=== PATIENT | female | born 1945 | race Caucasian/White ===

== ENCOUNTER 2017-06-04 06:39 | Emergency (ER) | payer OTHER ==
[~2017-06-04] VITALS: Ht 157.5 cm; Wt 94.9 kg
[~2017-06-04 06:39] MED LIST: ACET-1138 PO; ADVIN25050 INH; ALBUAER2 INH; AMLO2.5T PO; ASPI81TA28 PO; CETI10TA84 PO; FRS/40 PO; LEVO75TA5 PO; LOSA1TAB38 PO; NTRGSL/4 UT; OMEP20CA59 PO; POTA20TA16 PO; RXC5 PO; SENNTAB23 PO; SIMV40TA2 PO; TNR50 PO
[2017-06-04 06:43] VITALS: Ht 157.5 cm; Wt 94.9 kg
[2017-06-04] MEDS ORDERED: ALBUTEROL 0.5% NEB SOLN 2.5 MG/0.5 ML VIAL INH ONE (06:58)
[2017-06-04] MEDS ORDERED: ALBUT/IPRATROP 3MG/0.5MG NEB 3 ML VIAL INH STA (07:10)
[2017-06-04] MEDS ORDERED: FUROSEMIDE 40 MG/4 ML VIAL IV STA (07:13)
[2017-06-04] MEDS ORDERED: AMLODIPINE BESYLATE 5 MG TAB PO ONE (07:15)
[2017-06-04] MEDS ORDERED: LOSARTAN POTASSIUM 50 MG TAB PO ONE (07:15)
[2017-06-04 07:23] LABS: BASO % 0.1 %; BASO ABS # 0.01 K/uL (0-0.2); HEMATOCRIT 46.3 % (37-47); HEMOGLOBIN 15.5 g/dL (12.0-16.0); IG# 0.02 K/uL (0.00-0.02); LYMPH % 6.2 %; LYMPH ABS # 0.52 K/uL (1.2-3.4); MEAN CELL VOLUME 94.1 fL (80-100); MEAN CORPUSCULAR HEMOGLOBIN 31.5 pg (25-34); MEAN CORPUSCULAR HGB CONC 33.5 g/dl (32-36); MEAN PLATELET VOLUME 10.5 fL (7.4-10.4); MONO ABS # 0.92 K/uL (0.11-0.59); NEUT % 82.5 %; NEUT ABS # 6.93 K/uL (1.4-6.5); PLATELET COUNT 235 K/uL (130-400); RED CELL DISTRIBUTION WIDTH CV 13.2 % (11.5-14.5); RED CELL DISTRIBUTION WIDTH SD 45.5 fL (36.4-46.3)
[2017-06-04 07:25] VITALS: O2SAT 93
--- NOTE | 2017-06-04 07:32 | DIAGNOSTIC IMAGING REPORT ---
SINGLE VIEW CHEST CLINICAL HISTORY: Cough and dyspnea. FINDINGS: An AP, portable, upright chest radiograph is obtained. No prior studies are available for comparison at the time of dictation. The examination is degraded by portable technique and patient rotation. The patient is status post midline sternotomy. The heart is enlarged and there is atherosclerotic calcification of the thoracic aorta. The pulmonary vasculature is noncongested. There is nonspecific interstitial thickening. No airspace consolidation, large pleural effusion, or pneumothorax is seen. The skeletal structures are osteopenic. The bony thorax is grossly intact. Arthritic change is noted in the shoulders. IMPRESSION: Cardiomegaly with no acute cardiopulmonary abnormality. Electronically signed by: Harshad Hansen M.D. 06/04/2017 7:31 AM Dictated Date/Time: 06/04/2017 7:28 AM
[2017-06-04 07:39] LABS: ALBUMIN 3.6 gm/dl (3.4-5.0); ALT/SGPT 33 U/L (12-78); AST/SGOT 24 U/L (15-37); BLOOD UREA NITROGEN 22 mg/dl (7-18); CALCIUM 9.2 mg/dl (8.5-10.1); CARBON DIOXIDE 29 mmol/L (21-32); CREATININE 0.97 mg/dl (0.60-1.20); GLUCOSE 98 mg/dl (70-99); INR 0.9 (0.9-1.1); POTASSIUM 3.9 mmol/L (3.5-5.1); SODIUM 142 mmol/L (136-145)
[2017-06-04 07:44] LABS: ALKALINE PHOSPHATASE 119 U/L (45-117); CKMB 3.6 ng/ml (0.5-3.6); TOTAL PROTEIN 7.2 gm/dl (6.4-8.2)
[2017-06-04] MEDS ORDERED: POTA10CA28 PO (08:04)
[2017-06-04] MEDS ORDERED: PRED20TA PO (08:04)
[2017-06-04] MEDS ORDERED: METO50TA16 PO (08:04)
[2017-06-04] MEDS ORDERED: MULT-1092 PO (08:04)
[2017-06-04] MEDS ORDERED: FERR1TAB13 PO (08:08)
[2017-06-04 08:15] LABS: INFLUENZA B ANTIGEN Neg for Influ B (NEG)
[2017-06-04] MEDS ORDERED: [UNRECOGNIZED DRUG - CODE] PO (08:15)
[2017-06-04] MEDS ORDERED: MAGN400T6 PO (08:15)
[2017-06-04] MEDS ORDERED: ASPI81TA28 PO (08:15)
[2017-06-04] MEDS ORDERED: CLC100X PO (08:15)
[2017-06-04] MEDS ORDERED: CYAN10005 PO (08:15)
[2017-06-04] MEDS ORDERED: ASCO500T16 PO (08:15)
[2017-06-04] MEDS ORDERED: VNTHFA/IN INH (08:15)
[2017-06-04] MEDS ORDERED: MULT1CAP14 PO (08:15)
[2017-06-04 08:41] LABS: INFLUENZA A PCR Neg for Influ A (NEG); INFLUENZA B PCR Neg for Influ B (NEG)
[2017-06-04] MEDS ORDERED: AMOX500C3 PO (10:06)
[2017-06-04 10:27] VITALS: BP 153/81; PULSE 62; TEMP 36.9; O2SAT 92
--- NOTE | 2017-06-04 14:46 | EMERGENCY ROOM VISIT NOTE ---
History First contact with patient: 06:55 Chief Complaint: SHORTNESS OF BREATH Stated Complaint: SHORTNESS OF BREATH,COUGH Nursing Triage Summary: triage note SOB with cough since Sunday, seen PCP sunday got script for prednisone and cough syrup. states not working. aleyda has been having harder time catchin breath. pt is audiably wheezing and has labored breathing History of Present Illness The patient is a 72 year old female who presents to the Emergency Room with complaints of cough, shortness of breath, nasal congestion, body aches. The patient states that her symptoms started on , 4 days ago. She saw her doctor on Sunday and was prescribed prednisone. The patient does have a history of asthma. Her initial blood pressure was elevated at 199/104. She did not take her morning medications which include several antihypertensives. Review of Systems As above otherwise negative for 10 systems Past Medical/Surgical History Medical Problems: (1) Arthritis of right hip (2) Asthma (3) CAD (coronary artery disease) (4) GERD (gastroesophageal reflux disease) (5) History of left heart catheterization (LHC) (6) HLD (hyperlipidemia) (7) HTN (hypertension) (8) Hypothyroidism Surgical Problems: (1) H/O: hysterectomy (2) S/P AVR Family History Diabetes mellitus FH: cancer FH: heart disease Hypertension Social History Smoking Status: Never Smoker Current/Historical Medications Scheduled Amoxicillin (Amoxil), 500 MG PO TID Ascorbic Acid (Ascorbic Acid), 500 MG PO DAILY Aspirin (Aspirin Ec), 81 MG PO DAILY Cetirizine (Zyrtec), 10 MG PO QAM Cyanocobalamin (Vitamin B-12), 1,000 MCG PO DAILY Docusate Sodium (Docusate Sodium), 100 MG PO UD Ferrous Sulfate (Kp Ferrous Sulfate), 325 MG PO DAILY Fluticasone Prop/Salmeterol (Advair Diskus 250-50 Mcg/Dose), 1 PUFF INH BID Levothyroxine Sodium (Levothyroxine Sodium), 1 TAB PO QAM Losartan Potassium (Cozaar), 100 MG PO QAM Magnesium Oxide (Mag-Ox), 800 MG PO AMPM Metoprolol Tartrate (Lopressor) (Lopressor), 50 MG PO BID Multiple Vitamins W/ Minerals (Centrum Silver 50+Women), 1 TAB PO DAILY Multiple Vitamins W/ Minerals ([employer] Eye Health Formul), 1 CAP PO DAILY Nitroglycerin (Nitrostat), 0.4 MG UT PRN Omeprazole (Prilosec), 20 MG PO QAM Potassium Chloride (Micro-K Ext Rel), 10 MEQ PO BID Prednisone (Prednisone), 2 TAB PO DAILY Simvastatin (Zocor), 40 MG PO QPM Scheduled PRN Albuterol Hfa (Ventolin Hfa), 2 PUFFS INH Q4 PRN for Wheezing Furosemide (Lasix), 20-40 MG PO DAILY PRN for FLUID RETENTION Homeopathic Products ([employer] Leg Cramps Pain Relie), 1 TAB PO UD PRN for Pain Physical Exam Vital Signs Date Time Temp Pulse Resp B/P (MAP) Pulse Ox O2 Delivery O2 Flow Rate FiO2 06/04/17 10:27 36.9 62 20 153/81 92 06/04/17 10:01 153/81 06/04/17 09:52 168/97 06/04/17 09:44 62 20 92 06/04/17 08:14 74 17 97 06/04/17 08:12 189/96 06/04/17 07:54 93 Nasal Cannula 2.0 06/04/17 07:44 73 20 97 06/04/17 07:39 83 19 189/96 97 06/04/17 07:25 93 Nasal Cannula 2.0 06/04/17 07:09 83 25 100 06/04/17 06:57 80 06/04/17 06:56 205/111 06/04/17 06:43 36.9 79 18 199/104 90 Room Air Physical Exam CONSTITUTIONAL/VITAL SIGNS: Reviewed / noted above. GENERAL: Non-toxic in appearance. INTEGUMENTARY: Warm, dry, and [place]. HEAD: Normocephalic. EYES: without scleral icterus or trauma. ENT/OROPHARYNX: clear and moist. LYMPHADENOPATHY/NECK: Is supple without lymphadenopathy or meningismus. RESPIRATORY: Lungs reveal scattered expiratory wheezes CARDIOVASCULAR: Regular rate and rhythm. GI/ABDOMEN: Soft and nontender. No organomegaly or pulsatile mass. No rebound or guarding. Normal bowel sounds. EXTREMITIES: Warm and well perfused. BACK: No CVA tenderness. NEUROLOGICAL: Intact without focal deficits. PSYCHIATRIC: normal affect. MUSCULOSKELETAL: Normally developed with good muscle tone. TRIAGE NURSING DOCUMENTATION REVIEWED. Medical Decision & Procedures ER Provider Diagnostic Interpretation: SINGLE VIEW CHEST CLINICAL HISTORY: Cough and dyspnea. FINDINGS: An AP, portable, upright chest radiograph is obtained. No prior studies are available for comparison at the time of dictation. The examination is degraded by portable technique and patient rotation. The patient is status post midline sternotomy. The heart is enlarged and there is atherosclerotic calcification of the thoracic aorta. The pulmonary vasculature is noncongested. There is nonspecific interstitial thickening. No airspace consolidation, large pleural effusion, or pneumothorax is seen. The skeletal structures are osteopenic. The bony thorax is grossly intact. Arthritic change is noted in the shoulders. IMPRESSION: Cardiomegaly with no acute cardiopulmonary abnormality. Laboratory Results 06/04/17 07:05 Red Blood Count 4.92, Mean Corpuscular Volume 94.1, Mean Corpuscular Hemoglobin 31.5, Mean Corpuscular Hemoglobin Concent 33.5, Mean Platelet Volume 10.5, Neutrophils (%) (Auto) 82.5, Lymphocytes (%) (Auto) 6.2, Monocytes (%) (Auto) 11.0, Eosinophils (%) (Auto) 0.0, Basophils (%) (Auto) 0.1, Neutrophils # (Auto ) 6.93, Lymphocytes # (Auto) 0.52, Monocytes # (Auto) 0.92, Eosinophils # (Auto ) 0.00, Basophils # (Auto) 0.01 06/04/17 07:05 Test 06/04/17 07:00 06/04/17 07:05 Influenza Type A (RT-PCR) Neg for Influ A (NEG) Influenza Type A Antigen Neg for Influ A (NEG) Influenza Type B Antigen Neg for Influ B (NEG) Influenza Type B (RT-PCR) Neg for Influ B (NEG) White Blood Count 8.40 K/uL (4.8-10.8) Red Blood Count 4.92 M/uL (4.2-5.4) Hemoglobin 15.5 g/dL (12.0-16.0) Hematocrit 46.3 % (37-47) Mean Corpuscular Volume 94.1 fL (80-100) Mean Corpuscular Hemoglobin 31.5 pg (25-34) Mean Corpuscular Hemoglobin Concent 33.5 g/dl (32-36) Platelet Count 235 K/uL (130-400) Mean Platelet Volume 10.5 fL (7.4-10.4) Neutrophils (%) (Auto) 82.5 % Lymphocytes (%) (Auto) 6.2 % Monocytes (%) (Auto) 11.0 % Eosinophils (%) (Auto) 0.0 % Basophils (%) (Auto) 0.1 % Neutrophils # (Auto) 6.93 K/uL (1.4-6.5) Lymphocytes # (Auto) 0.52 K/uL (1.2-3.4) Monocytes # (Auto) 0.92 K/uL (0.11-0.59) Eosinophils # (Auto) 0.00 K/uL (0-0.5) Basophils # (Auto) 0.01 K/uL (0-0.2) RDW Standard Deviation 45.5 fL (36.4-46.3) RDW Coefficient of Variation 13.2 % (11.5-14.5) Immature Granulocyte % (Auto) 0.2 % Immature Granulocyte # (Auto) 0.02 K/uL (0.00-0.02) Prothrombin Time 9.5 SECONDS (9.0-12.0) Prothromb Time International Ratio 0.9 (0.9-1.1) Activated Partial Thromboplast Time 25.0 SECONDS (21.0-31.0) Partial Thromboplastin Ratio 1.0 Anion Gap 9.0 mmol/L (3-11) Est Creatinine Clear Calc Drug Dose 54.6 ml/min Estimated GFR () 66.7 Estimated GFR (Non- 57.5 BUN/Creatinine Ratio 22.2 (10-20) Calcium Level 9.2 mg/dl (8.5-10.1) Total Bilirubin 0.3 mg/dl (0.2-1) Aspartate Amino Transf (AST/SGOT) 24 U/L (15-37) Alanine Aminotransferase (ALT/SGPT) 33 U/L (12-78) Alkaline Phosphatase 119 U/L (45-117) Total Creatine Kinase 256 U/L (26-192) Creatine Kinase MB 3.6 ng/ml (0.5-3.6) Creatine Kinase MB Ratio 1.4 (0-3.0) Troponin I < 0.015 ng/ml (0-0.045) Pro-B-Type Natriuretic Peptide 951 pg/ml (0-900) Total Protein 7.2 gm/dl (6.4-8.2) Albumin 3.6 gm/dl (3.4-5.0) Globulin 3.6 gm/dl (2.5-4.0) Albumin/Globulin Ratio 1.0 (0.9-2) Medications Administered Medications (Trade) Dose Ordered Sig/Judith Route Start Time Stop Time Status Last Admin Dose Admin Albuterol Sulfate (Ventolin 0.5% 2.5MG/0.5ML Neb) 2.5 mg STK-MED ONCE INH 06/04/17 06:58 06/04/17 06:59 DC 06/04/17 06:58 2.5 MG Albuterol/ Ipratropium (Duoneb) 3 ml NOW STAT INH 06/04/17 07:10 06/04/17 07:13 DC 06/04/17 07:10 3 ML Amlodipine Besylate (Norvasc Tab) 2.5 mg NOW ONCE PO 06/04/17 07:15 06/04/17 07:16 DC 06/04/17 07:35 2.5 MG Atenolol (Tenormin Tab) 50 mg NOW ONCE PO 06/04/17 07:15 06/04/17 07:16 DC 06/04/17 07:34 50 MG Furosemide (Lasix Inj) 40 mg NOW STAT IV 06/04/17 07:13 06/04/17 07:16 DC 06/04/17 07:35 40 MG Losartan Potassium (coZAAR TAB) 100 mg ONE ONCE PO 06/04/17 07:15 06/04/17 07:16 DC 06/04/17 07:42 100 MG ED Course The patient was treated with her prescribed oral antihypertensives. She was also given IV Lasix and a DuoNeb treatment. Medical Decision the differential was considered includes acute myocardial infarction, acute coronary syndrome, myocarditis, pericarditis, pericardial effusions /tamponade, esophageal perforation, pulmonary embolism, pneumonia, pneumothorax, cardiomyopathy, congestive heart, anemia , COPD/asthma exacerbation. The patient is a 72 year old female who presents to the Emergency Room with complaints of cough, shortness of breath, nasal congestion, body aches. The patient states that her symptoms started on , 4 days ago. She saw her doctor on Sunday and was prescribed prednisone. The patient does have a history of asthma. Her initial blood pressure was elevated at 199/104. She did not take her morning medications which include several antihypertensives. 90% saturation on room air. The patient's physical exam revealed respiratory wheezing. She is otherwise in no distress. Chest x-ray did not show acute process. CBC and complete metabolic panel were unremarkable. The patient was given a DuoNeb treatment. She was treated with IV Lasix, by mouth Norvasc, atenolol by mouth and Cozaar by mouth. Her blood pressure improved. She appeared more calm. Her oxygen saturations remained above 90%. She felt comfortable going home. She was given a prescription for amoxicillin. She will continue her prednisone and she does have inhalers at home. Blood Pressure Screening Patient's blood pressure: Elevated blood pressure Blood pressure disposition: Referred to PCP Impression Primary Impression: Acute bronchitis Departure Information Dispostion Home / Self-Care Prescriptions Amoxicillin (AMOXIL) 500 Mg Cap 500 MG PO TID, #21 CAP Prov: Ronal Fan D.O. 06/04/17 Referrals Peggy Reyes M.D. (PCP) Patient Instructions Bronchitis Acute, [facility] Additional Instructions Amoxicillin as prescribed. Continue prednisone. Continue your inhalers at home every 4 hours as needed for shortness of breath or wheezing. Follow-up with your doctor for further care and evaluation in 1-2 days. Return to the emergency department for worsening or new symptoms or any concerns. You have been examined and treated today on an emergency basis only. This is not a substitute for, or an effort to provide, complete comprehensive medical care. It is impossible to recognize and treat all injuries or illnesses in a single emergency department visit. It is therefore important that you follow up closely with your doctor. Call as soon as possible for an appointment.
[2017-06-05] MEDS ORDERED: SYN75 PO (16:10)
[2017-06-05] MEDS ORDERED: POTA-74 PO (16:10)
[2017-06-05] MEDS ORDERED: MGNO400 PO (16:10)
== END 2017-06-04 10:28 | disposition home or self-care (01) ==
LOC: C.EDB 06:41
DX: J20.9 Acute bronchitis, unspecified (principal); J45.909 Unspecified asthma, uncomplicated; M16.11 Unilateral primary osteoarthritis, right hip; I25.10 Atherosclerotic heart disease of native coronary artery without angina pectoris; K21.9 Gastro-esophageal reflux disease without esophagitis; I10 Essential (primary) hypertension; E78.5 Hyperlipidemia, unspecified; E03.9 Hypothyroidism, unspecified; Z90.710 Acquired absence of both cervix and uterus; Z79.82 Long term (current) use of aspirin; Z83.3 Family history of diabetes mellitus; Z82.49 Family history of ischemic heart disease and other diseases of the circulatory system

== ENCOUNTER 2017-06-05 12:11 | Inpatient (IN) | payer OTHER ==
[2017-06-05] VITALS (8 sets, daily range): BP systolic 102–143; BP diastolic 63–87; PULSE 59–104; TEMP 36.5–36.9; O2SAT 92–94; Ht 154.9 cm; Wt 83.1 kg
[~2017-06-05] VITALS: Ht 154.9 cm; Wt 83.1 kg
[~2017-06-05 12:11] MED LIST changes: -ACET-1138 PO; -ALBUAER2 INH; -AMLO2.5T PO; +AMOX500C3 PO; +ASCO500T16 PO; +CLC100X PO; +CYAN10005 PO; +FERR1TAB13 PO; +MAGN400T6 PO; +METO50TA16 PO; +MULT-1092 PO; +MULT1CAP14 PO; +POTA10CA28 PO; -POTA20TA16 PO; +PRED20TA PO; -RXC5 PO; -SENNTAB23 PO; -TNR50 PO; +VNTHFA/IN INH; +[UNRECOGNIZED DRUG - CODE] PO
[2017-06-05] MEDS ORDERED: METHYLPREDNISOLONE 125 MG VIAL IV STA (12:45)
[2017-06-05] MEDS ORDERED: MAGNESIUM SULFATE 1GM / D5W 1 GM BAG IV STA (12:45)
[2017-06-05] MEDS ORDERED: ALBUT/IPRATROP 3MG/0.5MG NEB 3 ML VIAL INH ONE (12:45)
--- NOTE | 2017-06-05 13:04 | EMERGENCY ROOM VISIT NOTE ---
History Report prepared by Marcela: Irene Kee Under the Supervision of: Dr. Jon Pena M.D. First contact with patient: 12:41 Chief Complaint: SHORTNESS OF BREATH Stated Complaint: SOB, COUGHING Nursing Triage Summary: pt to the ED with c/o SOB and coughing since was here yesterday and sent home called PMD today and they told her to come to the ED no pain History of Present Illness The patient is a 72 year old female who presents to the Emergency Room with complaints of constant shortness of breath since May 31, 2017. The patient was recently seen in the ED yesterday for similar symptoms. She feels that she is worse than yesterday. Per , the patient cannot walk 20 feet without becoming short of breath. She denies any chest pain. Per , the patient notes loss of sleep for four days. She notes that she is expected to have a cardiac valve replacement, though she has a history of cardiac valve replacement nine years ago. She was seen by her PCP on June 01, 2017 and was prescribed Prednisone and Amoxicillin for bronchitis. She finished the prednisone today and is still taking the Amoxicillin. She denies any history of smoking. She has a history of asthma. She does not normally wear oxygen at home. She was tested for the flu, though was negative. She has recently gained water weight. She notes bilateral leg swelling. She regularly sees her calculation reviewer, Dr. Oconnor. Per , the patient's blood pressure has been higher than normal. Source of History: patient, spouse/significant other Onset: May 31, 2017 Position: other (global ) Quality: other (shortness of breath) Timing: constant Modifying Factors (Worsening): other (walking) Associated Symptoms: No chest pain Note: She notes bilateral leg swelling and weight gain. Review of Systems See HPI for pertinent positives and negatives. A total of ten systems were reviewed and were otherwise negative. Past Medical & Surgical Medical Problems: (1) Arthritis of right hip (2) Asthma (3) CAD (coronary artery disease) (4) GERD (gastroesophageal reflux disease) (5) HLD (hyperlipidemia) (6) HTN (hypertension) (7) Hypothyroidism (8) Respiratory failure Surgical Problems: (1) H/O: hysterectomy (2) History of left heart catheterization (LHC) (3) History of right hip replacement (4) History of tonsillectomy and adenoidectomy (5) S/P AVR Family History Diabetes mellitus FH: cancer FH: heart disease Hypertension Social History Smoking Status: Never Smoker Smokeless Tobacco Use: No Alcohol Use: none Marital Status: Housing Status: lives with significant other Occupation Status: unemployed Current/Historical Medications Scheduled Amoxicillin (Amoxil), 500 MG PO TID Ascorbic Acid (Ascorbic Acid), 500 MG PO DAILY Aspirin (Aspirin Ec), 81 MG PO DAILY Cetirizine (Zyrtec), 10 MG PO QAM Cyanocobalamin (Vitamin B-12), 1,000 MCG PO DAILY Ferrous Sulfate (Kp Ferrous Sulfate), 325 MG PO DAILY Fluticasone Prop/Salmeterol (Advair Diskus 250-50 Mcg/Dose), 1 PUFF INH BID Levothyroxine Sodium (Synthroid), 1 TAB PO DAILY Losartan Potassium (Cozaar), 100 MG PO QAM Magnesium Oxide (Mag-Ox), 800 MG PO DAILY Magnesium Oxide (Magnesium-Oxide), 1 TAB PO PM Metoprolol Tartrate (Lopressor) (Lopressor), 50 MG PO BID Multiple Vitamins W/ Minerals (Centrum Silver 50+Women), 1 TAB PO DAILY Multiple Vitamins W/ Minerals ([employer] Eye Health Formul), 1 CAP PO DAILY Nitroglycerin (Nitrostat), 0.4 MG UT PRN Omeprazole (Prilosec), 20 MG PO QAM Potassium Chloride (Micro-K Ext Rel), 10 MEQ PO PM Potassium Chloride (Potassium Chloride Er), 2 TAB PO DAILY Prednisone (Prednisone), 2 TAB PO DAILY Simvastatin (Zocor), 40 MG PO QPM Scheduled PRN Albuterol Hfa (Ventolin Hfa), 2 PUFFS INH Q4 PRN for Wheezing Furosemide (Lasix), 20-40 MG PO DAILY PRN for FLUID RETENTION Allergies Coded Allergies: Erythromycin (Verified Adverse Reaction, Unknown, GI UPSET AND CRAMPING, ) Tetracycline (Verified Adverse Reaction, Unknown, GI UPSET, 06/05/17) Physical Exam Vital Signs Date Time Temp Pulse Resp B/P (MAP) Pulse Ox O2 Delivery O2 Flow Rate FiO2 06/05/17 15:20 99 24 132/69 95 BiPAP 06/05/17 14:45 104 94 40 06/05/17 13:54 80 06/05/17 13:52 80 24 171/105 93 Nebulizer 06/05/17 13:39 76 20 93 Nasal Cannula 5.0 06/05/17 13:34 157 26 06/05/17 13:20 93 Nasal Cannula 06/05/17 13:20 Nasal Cannula 06/05/17 12:32 37.4 83 22 167/79 79 Room Air Physical Exam GENERAL: Awake, alert, in mild respiratory distress HENT: Normocephalic, atraumatic. Oropharynx has dry mucus membranes. EYES: Normal conjunctiva. Sclera non-icteric. NECK: Supple. No nuchal rigidity. FROM. No JVD. RESPIRATORY: Scattered wheezes and rhonchi throughout. CARDIAC: RRR. Extremities warm and well perfused. Pulses equal. ABDOMEN: Soft, non-distended. No tenderness to palpation. No rebound or guarding. No masses. RECTAL: Deferred. MUSCULOSKELETAL: Chest examination reveals no tenderness. The back is symmetrical on inspection without obvious abnormality. There is no CVA tenderness to palpation. No joint edema. LOWER EXTREMITIES: Calves are equal size bilaterally and non-tender. 3+ bilateral pitting edema. No discoloration. NEURO: Normal sensorium. No sensory or motor deficits noted. SKIN: No rash or jaundice noted. Medical Decision & Procedures ER Provider Diagnostic Interpretation: Radiology results as stated below per my review and radiologist interpretation: CHEST ONE VIEW PORTABLE CLINICAL HISTORY: Atypical chest pain. Cough. COMPARISON STUDY: 06/04/2017 FINDINGS: There are postsurgical changes of a midline sternotomy. The heart is at the upper limits of normal in size. There is nonspecific mild interstitial thickening. There is no lobar consolidation. There are no significant pleural effusions.[ IMPRESSION: Mild nonspecific interstitial thickening. No evidence of focal pulmonary consolidation Electronically signed by: Josiah Lema M.D. 06/05/2017 1:27 PM Dictated Date/Time: 06/05/2017 1:20 PM Laboratory Results Test 06/05/17 13:20 06/05/17 13:23 Prothrombin Time 10.1 SECONDS (9.0-12.0) Prothromb Time International Ratio 1.0 (0.9-1.1) Total Bilirubin 0.4 mg/dl (0.2-1) Direct Bilirubin 0.1 mg/dl (0-0.2) Aspartate Amino Transf (AST/SGOT) 32 U/L (15-37) Alanine Aminotransferase (ALT/SGPT) 37 U/L (12-78) Alkaline Phosphatase 113 U/L (45-117) Troponin I < 0.015 ng/ml (0-0.045) Pro-B-Type Natriuretic Peptide 1837 pg/ml (0-900) Total Protein 7.4 gm/dl (6.4-8.2) Albumin 3.6 gm/dl (3.4-5.0) Lipase 89 U/L (73-393) Thyroid Stimulating Hormone (TSH) 1.580 uIu/ml (0.300-4.500) Venous Blood pH 7.35 (7.36-7.41) Venous Blood Partial Pressure CO2 62 mmHg (38.0-50.0) Venous Blood Partial Pressure O2 42 mmHg Venous Blood HCO3 33 mmol/L Venous Blood Oxygen Saturation 71.7 % Venous Blood Base Excess 5.0 mEq/L Laboratory results reviewed by me Medications Administered Medications (Trade) Dose Ordered Sig/Judith Route Start Time Stop Time Status Last Admin Dose Admin Methylprednisolone Sodium Succinate (Solu-Medrol IV) 125 mg NOW STAT IV 06/05/17 12:45 06/05/17 12:51 DC 06/05/17 13:36 125 MG Albuterol/ Ipratropium (Duoneb) 12 ml ONE ONCE INH 06/05/17 12:45 06/05/17 12:51 DC 06/05/17 13:39 12 ML Magnesium Sulfate (Magnesium Sulfate) 2 gm NOW STAT IV 06/05/17 12:45 06/05/17 12:51 DC 06/05/17 13:36 2 GM Furosemide (Lasix Inj) 20 mg NOW STAT IV 06/05/17 14:25 06/05/17 14:27 DC 06/05/17 15:07 20 MG Levofloxacin (Levaquin / D5W) 750 mg NOW STAT IV 06/05/17 14:25 06/05/17 14:27 DC 06/05/17 16:00 750 MG ECG Indication: SOB/dyspnea Rate (beats per minute): 74 Rhythm: normal sinus Findings: no acute ischemic change, other (Non-specific intraventricular block. Normal axis.) Change: no significant change (Repeat ECG (06/05/2017) is unchaged) Change: Patient's electrocardiogram interpreted by me. ED Course 1242: The patient was evaluated in room B10. A complete history and physical exam was performed. 1348: I reassessed the patient at this time. She is resting comfortably. 1425: I reassessed the patient at this time. She is resting comfortably. I discussed the results and treatment plan with the patient. I answered all pertaining questions that she had. She expressed understanding and verbalized agreement. The patient will be further evaluated. 1438: I spoke with Bhavya Paulson PA-C. We discussed the patient 's case. The patient will be evaluated by the [facility] for further management. Medical Decision I reviewed the patient's past medical history, medications, and the nursing notes as described above. Differential diagnosis: Etiologies such as infections, reactive airway disease, pneumonia, pneumothorax , COPD, CHF, cardiac ischemia, pulmonary embolism, musculoskeletal, gastrointestinal, as well as others were entertained. The patient is a 72-year-old woman with a past medical history of asthma and CHF on Lasix presents to emergency department with worsening cough congestion shortness of breath after being seen in the emergency Department for the same yesterday and started on amoxicillin in the setting of being seen by her PCP for the same last Sunday started on prednisone. Arrival the patient is in mild respiratory distress, with hypoxia to the 80s on room air, with accessory muscle use. Vital Signs otherwise stable. Labs demonstrate hypercapnia in the 60s with pH of 7.35. WBC 10. BNP 1800s slightly increased from yesterday. Chest x-ray negative for pneumonia or significant volume overload. She given continuous nebs and steroids with improvement in her air movement however still significantly dyspneic with workup breathing. Patient was placed on BiPAP for her acute on chronic hypoxic and hypercapnic respiratory failure. Additionally treated with Levaquin given the patient's respiratory distress in the setting of her COPD. This was discussed with Bhavya Torres, who will admit the patient for further management. Medication Reconcilliation Current Medication List: was personally reviewed by me Blood Pressure Screening Patient's blood pressure: Elevated blood pressure Blood pressure disposition: Elevated BP felt to be situational Consults Time Called: 1430 Consulting Physician: Bhavya Paulson PA-C Returned Call: 1438 I spoke with Bhavya PaulsonC. We discussed the patient's case. [facility] Impression Primary Impression: Acute on chronic respiratory failure with hypoxia and hypercapnia Additional Impression: COPD with exacerbation Critical Care I have personally spent greater than 90 minutes of critical care time in the direct management of this patient. This includes bedside care, interpretation of diagnostic studies, and testing, discussion with consultants, patient, and family members, and other required patient management activities. This 90 minutes is in excess of all separately billable procedures. Scribe Attestation The scribe's documentation has been prepared under my direction and personally reviewed by me in its entirety. I confirm that the note above accurately reflects all work, treatment, procedures, and medical decision making performed by me. Departure Information Dispostion Being Evaluated By Hospitalist Referrals Peggy Reyes M.D. (PCP) Patient Instructions [facility] Problem Qualifiers
--- NOTE | 2017-06-05 13:28 | DIAGNOSTIC IMAGING REPORT ---
CHEST ONE VIEW PORTABLE CLINICAL HISTORY: Atypical chest pain. Cough. COMPARISON STUDY: 06/04/2017 FINDINGS: There are postsurgical changes of a midline sternotomy. The heart is at the upper limits of normal in size. There is nonspecific mild interstitial thickening. There is no lobar consolidation. There are no significant pleural effusions.[ IMPRESSION: Mild nonspecific interstitial thickening. No evidence of focal pulmonary consolidation Electronically signed by: Josiah Lema M.D. 06/05/2017 1:27 PM Dictated Date/Time: 06/05/2017 1:20 PM
[2017-06-05 13:36] LABS: BASO % 0.2 %; BASO ABS # 0.02 K/uL (0-0.2); HEMATOCRIT 47.2 % (37-47); HEMOGLOBIN 15.4 g/dL (12.0-16.0); IG# 0.02 K/uL (0.00-0.02); LYMPH % 4.4 %; LYMPH ABS # 0.48 K/uL (1.2-3.4); MEAN CELL VOLUME 95.9 fL (80-100); MEAN CORPUSCULAR HEMOGLOBIN 31.3 pg (25-34); MEAN CORPUSCULAR HGB CONC 32.6 g/dl (32-36); MEAN PLATELET VOLUME 10.4 fL (7.4-10.4); MONO % 8.8 %; MONO ABS # 0.96 K/uL (0.11-0.59); NEUT % 86.4 %; NEUT ABS # 9.47 K/uL (1.4-6.5); PLATELET COUNT 212 K/uL (130-400); RED CELL DISTRIBUTION WIDTH CV 13.6 % (11.5-14.5); RED CELL DISTRIBUTION WIDTH SD 48.1 fL (36.4-46.3); WHITE BLOOD COUNT 10.95 K/uL (4.8-10.8)
[2017-06-05 13:54] LABS: ALBUMIN 3.6 gm/dl (3.4-5.0); ALT/SGPT 37 U/L (12-78); AST/SGOT 32 U/L (15-37); BLOOD UREA NITROGEN 25 mg/dl (7-18); CARBON DIOXIDE 32 mmol/L (21-32); CREATININE 1.09 mg/dl (0.60-1.20); GLUCOSE 133 mg/dl (70-99); LIPASE 89 U/L (73-393); POTASSIUM 4.1 mmol/L (3.5-5.1); SODIUM 138 mmol/L (136-145)
[2017-06-05 14:09] LABS: ALKALINE PHOSPHATASE 113 U/L (45-117); TOTAL PROTEIN 7.4 gm/dl (6.4-8.2)
[2017-06-05] MEDS ORDERED: FUROSEMIDE 40 MG/4 ML VIAL IV STA (14:25)
[2017-06-05] MEDS ORDERED: LEVAQUIN 750MG / 150ML D5W IV STA (14:25)
[2017-06-05] MEDS ORDERED: ACETAMINOPHEN 325 MG TAB PO PRN (16:00)
[2017-06-05] MEDS ORDERED: ONDANSETRON INJ 2 MG/ML 2 ML VIAL IV PRN (16:00)
[2017-06-05] MEDS ORDERED: LEVALBUTEROL/IPRATROPIUM NEB INH PRN (16:00)
[2017-06-05] MEDS ORDERED: POLYETHYLENE (MIRALAX) 17 GM PACK PO PRN (16:00)
[2017-06-05] MEDS ORDERED: NITROGLYCERIN 0.4 MG SL PER TAB CHARGE SL PRN (16:00)
[2017-06-05] MEDS ORDERED: POTA-74 PO (16:10)
[2017-06-05] MEDS ORDERED: MGNO400 PO (16:10)
[2017-06-05] MEDS ORDERED: SYN75 PO (16:10)
[2017-06-05] MEDS ORDERED: IPRATROPIUM BROMIDE NEB SOLN 0.02% 2.5 ML VIAL INH PRN (18:15)
[2017-06-05] MEDS ORDERED: LEVALBUTEROL 0.63MG/3 ML NEB INH PRN (18:15)
[2017-06-05] MEDS: IPRATROPIUM BROMIDE NEB SOLN 0.02% 2.5 ML VIAL INH SCH (19:24)
[2017-06-05] MEDS: LEVALBUTEROL 1.25MG/0.5ML NEB INH SCH (19:25)
--- NOTE | 2017-06-05 19:28 | History and Physical ---
History & Physical Date & Time of Service: Jun 05, 2017 at 16:13 Chief Complaint: Sob, Coughing Primary Care Physician: Peggy Reyes M.D. History of Present Illness Source: patient, clinic records, hospital records Pt is 72 y/o F with PMH HTN, COPD, CAD, NSTEMI s/p balloon angioplasty, s/p AVR, prosthetic aortic valve stenosis, CKD III, hypothyroidism presented to ER with c/o SOB. Pt seen at PCP and was started on prednisone and cough suppressant. She was seen at ER yesterday also and d/c home with amoxicillin. Returned today with worsening SOB. States productive yellow cough and SOB x 5 days. Doesn't think had fever. Does not use home oxygen. Pt states unable to use her albuterol at home secondary to SOB and inability to take in a deep breath. Pt reports LE edema worsening over several months with SOB with exertion. Following out pt with [facility] cardiology, nephrology. On lasix 40mg daily , however doesn't use regularly with her job. Hx prosthetic aortic valve stenosis and f/u with Dr Guerra for consideration TAVR. Denies fever/chills, diaphoresis, N/V/D/C, PEREZ, dizziness, syncope, vision changes, neck pain, CP, orthopnea, palpitations, sore throat, choking, otalgia, abdominal pain, paresthesias, extremity weakness, extremity edema, rashes, urinary symptoms. Hx echo on 04/06/17: EF: 60-65%, Grade II diastolic dysfunction. Aortic prosthesis systolic gradient abnormal suggesting obstruction. The interatrial septum bows toward R atrial consistent with high left atrial pressure. In ER T: 37.4, Pt hypoxic in 79% on RA increased to 93% on 5L NC and was placed on bipap, sats: 93-95%. pt initially hypertensive, after bipap placed BP stable. Pt given lasix 20mg IV, Levaquin 750mg IV, Solumedrol 125mg IV, hour long DuoNeb, mag sulfate 2 gm. WBC: 10.9. Negative troponin. BNP: 1837. CXR: no focal consolidation. Past Medical/Surgical History Medical Problems: (1) Arthritis of right hip Status: Chronic (2) Asthma Status: Chronic (3) CAD (coronary artery disease) Status: Chronic (4) GERD (gastroesophageal reflux disease) Status: Chronic (5) HLD (hyperlipidemia) Status: Chronic (6) HTN (hypertension) Status: Chronic (7) Hypothyroidism Status: Chronic Surgical Problems: (1) H/O: hysterectomy Status: Chronic (2) History of left heart catheterization (LHC) Permanent Comment: CORONARY ARTERY DILATION, BALLOON 05/2008 left PDA Status: Resolved (3) History of right hip replacement Status: Resolved (4) History of tonsillectomy and adenoidectomy Status: Resolved (5) S/P AVR Status: Chronic Family History Diabetes mellitus FH: cancer FH: heart disease Hypertension Social History Smoking Status: Never Smoker Smokeless Tobacco Use: No Alcohol Use: occasionally Drug Use: none Marital Status: Occupational Status: unemployed Allergies Coded Allergies: Erythromycin (Verified Adverse Reaction, Unknown, GI UPSET AND CRAMPING, ) Tetracycline (Verified Adverse Reaction, Unknown, GI UPSET, 06/05/17) Home Medications Scheduled Amoxicillin (Amoxil), 500 MG PO TID Ascorbic Acid (Ascorbic Acid), 500 MG PO DAILY Aspirin (Aspirin Ec), 81 MG PO DAILY Cetirizine (Zyrtec), 10 MG PO QAM Cyanocobalamin (Vitamin B-12), 1,000 MCG PO DAILY Ferrous Sulfate (Kp Ferrous Sulfate), 325 MG PO DAILY Fluticasone Prop/Salmeterol (Advair Diskus 250-50 Mcg/Dose), 1 PUFF INH BID Levothyroxine Sodium (Synthroid), 1 TAB PO DAILY Losartan Potassium (Cozaar), 100 MG PO QAM Magnesium Oxide (Mag-Ox), 800 MG PO DAILY Magnesium Oxide (Magnesium-Oxide), 1 TAB PO PM Metoprolol Tartrate (Lopressor) (Lopressor), 50 MG PO BID Multiple Vitamins W/ Minerals (Centrum Silver 50+Women), 1 TAB PO DAILY Multiple Vitamins W/ Minerals (Ocuvite Eye Health Formul), 1 CAP PO DAILY Nitroglycerin (Nitrostat), 0.4 MG UT PRN Omeprazole (Prilosec), 20 MG PO QAM Potassium Chloride (Micro-K Ext Rel), 10 MEQ PO PM Potassium Chloride (Potassium Chloride Er), 2 TAB PO DAILY Prednisone (Prednisone), 2 TAB PO DAILY Simvastatin (Zocor), 40 MG PO QPM Scheduled PRN Albuterol Hfa (Ventolin Hfa), 2 PUFFS INH Q4 PRN for Wheezing Furosemide (Lasix), 20-40 MG PO DAILY PRN for FLUID RETENTION Review of Systems Constitutional: No fever, No chills, No sweats, No weight loss Eyes: No worsening of vision, No eye pain, No redness, No discharge, No diplopia ENT: No hearing loss, No unusual epistaxis, No nasal symptoms, No sore throat, No trouble swallowing Respiratory: + cough, + shortness of breath (see HPI), No wheezing, No hemoptysis Cardiovascular: + edema (hx chronic LE edema, denies any worsening), No chest pain, No orthopnea, No PND, No claudication, No palpitations, No problem reported Abdomen: + problem reported, No pain, No nausea, No vomiting, No diarrhea, No constipation, No GI bleeding Musculoskeletal: No joint pain, No muscle pain, No calf pain Genitourinary - Female: No dysuria, No urinary frequency, No urinary urgency, No urinary incontinence, No urinary retention, No hematuria Neurologic: No numbness/tingling, No vertigo Psychiatric: No depression symptoms, No anxiety Endocrine: No excessive thirst, No excessive urination Hematologic / Lymphatic: No abnormal bleeding/bruising, No clotting problems, No swollen lymph nodes Integumentary: No rash, No itch Physical Exam Vital Signs Date Time Temp Pulse Resp B/P (MAP) Pulse Ox O2 Delivery O2 Flow Rate FiO2 06/05/17 16:02 89 20 104/64 91 BiPAP 06/05/17 15:20 99 24 132/69 95 BiPAP 06/05/17 14:45 104 94 40 06/05/17 13:54 80 06/05/17 13:52 80 24 171/105 93 Nebulizer 06/05/17 13:39 76 20 93 Nasal Cannula 5.0 06/05/17 13:34 157 26 06/05/17 13:20 93 Nasal Cannula 06/05/17 13:20 Nasal Cannula 06/05/17 12:32 37.4 83 22 167/79 79 Room Air General Appearance: + obese, + pertinent finding (+mild respiratory distress, has Bipap on) Head: normocephalic, atraumatic Eyes: normal inspection, PERRL, EOMI, sclerae normal ENT: + pertinent finding (hard of hearing, mucous membranes moist) Neck: supple, no JVD, trachea midline Respiratory/Chest: chest non-tender, + respiratory distress (increased respirations), + decreased breath sounds, + rhonchi, + wheezing Cardiovascular: + tachycardia, + systolic murmur Abdomen/GI: normal bowel sounds, non tender, soft Extremities/Musculoskelatal: no calf tenderness, normal capillary refill, + pertinent finding (+2 pitting edema LE bilaterally) Neurologic/Psych: alert, normal mood/affect, oriented x 3 Skin: normal color, warm/dry Diagnostics Laboratory Results Results Past 24 Hours Test 06/05/17 13:20 06/05/17 13:23 Range/Units White Blood Count 10.95 4.8-10.8 K/uL Red Blood Count 4.92 4.2-5.4 M/uL Hemoglobin 15.4 12.0-16.0 g/dL Hematocrit 47.2 37-47 % Mean Corpuscular Volume 95.9 80-100 fL Mean Corpuscular Hemoglobin 31.3 25-34 pg Mean Corpuscular Hemoglobin Concent 32.6 32-36 g/dl Platelet Count 212 130-400 K/uL Mean Platelet Volume 10.4 7.4-10.4 fL Neutrophils (%) (Auto) 86.4 % Lymphocytes (%) (Auto) 4.4 % Monocytes (%) (Auto) 8.8 % Eosinophils (%) (Auto) 0.0 % Basophils (%) (Auto) 0.2 % Neutrophils # (Auto) 9.47 1.4-6.5 K/uL Lymphocytes # (Auto) 0.48 1.2-3.4 K/uL Monocytes # (Auto) 0.96 0.11-0.59 K/uL Eosinophils # (Auto) 0.00 0-0.5 K/uL Basophils # (Auto) 0.02 0-0.2 K/uL RDW Standard Deviation 48.1 36.4-46.3 fL RDW Coefficient of Variation 13.6 11.5-14.5 % Immature Granulocyte % (Auto) 0.2 % Immature Granulocyte # (Auto) 0.02 0.00-0.02 K/uL Prothrombin Time 10.1 9.0-12.0 SECONDS Prothromb Time International Ratio 1.0 0.9-1.1 Sodium Level 138 136-145 mmol/L Potassium Level 4.1 3.5-5.1 mmol/L Chloride Level 102 98-107 mmol/L Carbon Dioxide Level 32 21-32 mmol/L Anion Gap 4.0 3-11 mmol/L Blood Urea Nitrogen 25 7-18 mg/dl Creatinine 1.09 0.60-1.20 mg/dl Est Creatinine Clear Calc Drug Dose 46.8 ml/min Estimated GFR () 57.9 Estimated GFR (Non- 50.0 BUN/Creatinine Ratio 22.5 10-20 Random Glucose 133 70-99 mg/dl Calcium Level 9.0 8.5-10.1 mg/dl Total Bilirubin 0.4 0.2-1 mg/dl Direct Bilirubin 0.1 0-0.2 mg/dl Aspartate Amino Transf (AST/SGOT) 32 15-37 U/L Alanine Aminotransferase (ALT/SGPT) 37 12-78 U/L Alkaline Phosphatase 113 45-117 U/L Troponin I < 0.015 0-0.045 ng/ml Pro-B-Type Natriuretic Peptide 1837 0-900 pg/ml Total Protein 7.4 6.4-8.2 gm/dl Albumin 3.6 3.4-5.0 gm/dl Lipase 89 73-393 U/L Venous Blood pH 7.35 7.36-7.41 Venous Blood Partial Pressure CO2 62 38.0-50.0 mmHg Venous Blood Partial Pressure O2 42 mmHg Venous Blood HCO3 33 mmol/L Venous Blood Oxygen Saturation 71.7 % Venous Blood Base Excess 5.0 mEq/L Diagnostic Radiology CXR: IMPRESSION: Mild nonspecific interstitial thickening. No evidence of focal pulmonary consolidation EKG EK, NSR Impression Assessment and Plan ACUTE RESPIRATORY FAILURE Probable COPD and CHF components. Hx prosthetic aortic valve stenosis. Pt with cough, SOB past couple of days, treated with prednisone out pt, with worsening. Pt with negative influenza PCR yesterday. Pending blood cultures from yesterday in ER. Pt hypoxic 79% on RA and placed on bipap 95%. WBC: 10.9. BNP: 1837. CXR : no focal consolidation, mild non-specific interstitial thickening. Treated in ER with DuoNeb, Lasix 20mg, Levaquin 750mg, Solumedrol 125mg, magnesium sulfate 2gm -continue bipap -Xopenex/Atrovent nebs -Solumedrol 40mg Q 8 hrs -Levaquin -Lasix 40mg IV -pulmonology consult -cardiology consult -follow prp, cbc CAD/HTN Pt initially hypertensive at 171/105, placed on bipap and BP down to 132/69. Continue to monitor. No CP -continue metoprolol, ASA, losartan CKD III Cr 1.09 (~baseline 1.1) -monitor renal functions -avoid nephrotoxic agents when possible HYPOTHYROIDISM Added TSH -continue levothyroxine DVT PROPHYLAXIS -heparin SQ DISPOSITION -admit tele -DNR/DNI as per discussion with pt -Follows with Dr Reyes for routine care Pt was seen with Dr Grace. See addendum ADDENDUM: This is a 72 year old female with a PMH of CAD, hx. of aortic valve replacement , HTN, presumed COPD - presents with worsening shortness of breath, swelling of lower extremities. Patient states that she's been having ongoing trouble with this; was told that she needed her aortic valve replaced again. CXR suggests some fluid overload. BNP is elevated Patient was hypoxic on presentation. Placed on bipap and doing better. Plan: solu-medrol 40mg q8, nebulizers, Levaquin for presumed acute COPD exacerbation IV Lasix 40mg for possible fluid overload Protonix for GERD pulmonology and cardiology consultation Level of Care Telemetry Resuscitation Status DO NOT RESUSCITATE VTE Prophylaxis VTE Risk Assessment Done? Y/N: Yes Risk Level: Moderate Given or contraindicated: Unfractionated heparin SQ Additional Copies To Peggy Reyes M.D.
[2017-06-05] MEDS: METHYLPREDNISOLONE IV 40 MG in SYRINGE 0 ML IV SCH (20:20)
[2017-06-05] MEDS: POTASSIUM CHLORIDE 10 MEQ TABCR PO SCH (20:20)
[2017-06-05] MEDS: MAGNESIUM OXIDE 400 MG TAB PO SCH (20:21)
[2017-06-05] MEDS: SIMVASTATIN 40 MG TAB PO SCH (20:21)
[2017-06-05] MEDS: METOPROLOL TARTRATE 50 MG TAB PO SCH (20:21)
[2017-06-05] MEDS: FLUTICASONE/SALMETEROL 250/50 (ADVAIR) 14 PUFF/1 INHALER INH SCH (20:22)
[2017-06-05] MEDS: HEPARIN SOD 5000 UNIT/0.5 ML CARP SQ SCH (20:28)
[2017-06-05] MEDS ORDERED: LEVALBUTEROL/IPRATROPIUM NEB INH SCH (21:00)
--- NOTE | 2017-06-05 21:04 | PULMONARY CONSULTATION ---
DATE OF CONSULTATION: 06/05/2017 TIME: 8:15 p.m. REPORT OF CONSULTATION: The patient was seen in room 216. HISTORY OF PRESENT ILLNESS: She is a 72-year-old female who was in her usual state of health until approximately 5 days ago. She developed cough, tiredness, and weakness. The cough was dry. On the following day, June 01, she went to her doctor's office. They gave her prednisone and some cough medicine. Her symptoms worsened, especially the cough and the shortness of breath. She did not have any nausea or vomiting. She did feel achy. She is not aware of fevers. Her symptoms progressed and she went to the ER on June 04 where she was treated and released. Last night she was severely short of breath. She was sitting in the far forward position all night last night. She called her family doctor who again told her to go back to the ER and she subsequently was admitted. She states she is feeling somewhat better this evening. She feels less tight in the chest. She is still not bringing up any sputum. She has not had any chest pains. Pertinent history is that she carries a diagnosis of asthma. This was made sometime in the past few years. It was not from a young age at all. She has been on Advair at home. She felt in the last couple days she was so short of breath, she could not even get the Advair in. She also has an albuterol inhaler for rescue, which was not helping her. She has never been hospitalized with breathing troubles before. PAST MEDICAL HISTORY: 1. Hypertension. 2. Hyperlipidemia. 3. Coronary artery disease with prior Non-STEMI. 4. Hypothyroidism. 5. Chronic kidney disease stage III. 6. Degenerative joint disease. 7. Reflux. PAST SURGICAL HISTORY: 1. Balloon angioplasty. 2. Status post aortic valve replacement in 2008. 3. Hysterectomy. 4. Right total hip replacement. 5. T and A. SOCIAL HISTORY: Tobacco, the patient was vague. She states she quit smoking about 15 years ago. Most of her lifetime, she states, she only smoked a couple of cigarettes per week. Alcohol use is described as occasional beer. ALLERGIES: ERYTHROMYCIN AND TETRACYCLINE WHICH GAVE GI DISTRESS. FAMILY HISTORY: Mother age 95, had diabetes. Father age 78, prostate cancer. MEDICATIONS: At home: 1. Ventolin HFA. 2. Amoxicillin. 3. Ascorbic acid. 4. Aspirin 81 mg. 5. Cetirizine 10 mg daily. 6. B12 daily. 7. Ferrous sulfate daily. 8. Advair Diskus 250/50 one puff b.i.d. 9. Furosemide 20-40 mg daily p.r.n. 10. Levothyroxine 75 mcg daily. 11. Losartan 100 mg daily. 12. Magnesium oxide 400 mg 2 daily, and 1 in the evening. 13. Metoprolol 50 mg b.i.d. 14. Multivitamin. 15. Nitro p.r.n. 16. Omeprazole 20 mg daily. 17. Potassium 10 mEq in the evening and 20 mEq in the morning. 18. Prednisone on a tapering dose. 19. Simvastatin 40 mg daily. PHYSICAL EXAMINATION: GENERAL: The patient is a 72-year-old female who was cooperative, alert and oriented. She appeared short of breath even at rest. One could hear wheezing without a stethoscope. VITAL SIGNS: Temperature was 36.5. HEENT: Eye exam showed implants bilaterally from prior cataract surgeries. Nares were clear. Mouth exam was negative. NECK: Palpation of the neck reveals no lymph nodes. CARDIOVASCULAR: Blood pressure was 102/63. Heart rate was 84. Systolic murmur grade 2-3/6 heard. LUNGS: Respiratory rate was 24 breaths per minute. Diffuse rales and wheezing were heard especially posteriorly. Oxygen saturation was 94% and she had on Oxymask. There was a scar on the chest from prior surgery. ABDOMEN: Soft. It was nontender. No masses were palpable. EXTREMITIES: Showed mild erythema of both lower extremities. There is at least +2 to +3 edema of the anterior tibial regions bilaterally. IMAGING DATA: The patient's chest x-ray showed mild prominence of interstitial markings, but no acute consolidation. There was evidence of prior midline sternotomy. LABORATORY DATA: White count was 10.95. Hemoglobin 15.4. Platelets 212,000. The differential showed 86.4% neutrophils. INR was 1. Venous blood gas showed a pH of 7.35, pCO2 62 and pO2 42. Electrolytes show sodium 138, potassium 4.1, chloride 102, bicarbonate 32. BUN is 25 with a creatinine of 1.09. The ProBNP was 1837. The normal for her age of 72 would be up to 900. TSH was 1.58. The patient had an EKG showing sinus rhythm. Possible left atrial enlargement. Interventricular conduction delay. The QRS interval was 0.134 seconds. IMPRESSION: 1. Acute asthmatic bronchitis. 2. Congestive heart failure. 3. Chronic edema. COMMENTS AND RECOMMENDATIONS: I do not know if the patient has ever had pulmonary function testing or not. It is difficult to assess her as we have not seen her before. She does have wheezing and rales. Both of these could be found with congestive heart failure as well as an acute asthmatic bronchitis. She says she is feeling better even though she still sounds were very abnormal. She is on levofloxacin. She is getting furosemide 40 mg daily. She is on cetirizine. She is on pantoprazole for reflux. She is getting methylprednisolone 40 mg IV q. 8 hours. She has subQ heparin for prophylaxis. She does take Advair at home. She is getting neb treatments with levalbuterol and ipratropium. I agree with all of these measures. I believe there is a cardiology consultation pending. The patient is known to have a valve disease apparently of her valve that was inserted in 2008. I am guessing the bladder cleaner may have already done echoes and so forth on this patient. I do not have access to those records. I will follow up with the patient. Thank you for asking me to assist in her care.
[2017-06-06] VITALS (13 sets, daily range): BP systolic 128–162; BP diastolic 75–91; PULSE 63–80; TEMP 36.4–36.7; O2SAT 91–97
[2017-06-06] MEDS: LEVALBUTEROL 1.25MG/0.5ML NEB INH SCH ×4 (03:22→19:56)
[2017-06-06] MEDS: IPRATROPIUM BROMIDE NEB SOLN 0.02% 2.5 ML VIAL INH SCH ×4 (03:22→19:56)
[2017-06-06] MEDS: METHYLPREDNISOLONE IV 40 MG in SYRINGE 0 ML IV SCH ×3 (06:15→21:01)
[2017-06-06] MEDS: LEVOTHYROXINE 75 MCG TAB PO SCH (06:15)
[2017-06-06 06:56] LABS: BASO % 0.1 %; BASO ABS # 0.01 K/uL (0-0.2); HEMATOCRIT 43.8 % (37-47); HEMOGLOBIN 14.2 g/dL (12.0-16.0); IG# 0.03 K/uL (0.00-0.02); LYMPH % 6.3 %; LYMPH ABS # 0.56 K/uL (1.2-3.4); MEAN CELL VOLUME 95.2 fL (80-100); MEAN CORPUSCULAR HEMOGLOBIN 30.9 pg (25-34); MEAN CORPUSCULAR HGB CONC 32.4 g/dl (32-36); MEAN PLATELET VOLUME 10.4 fL (7.4-10.4); MONO % 6.3 %; MONO ABS # 0.56 K/uL (0.11-0.59); NEUT ABS # 7.71 K/uL (1.4-6.5); PLATELET COUNT 216 K/uL (130-400); RED CELL DISTRIBUTION WIDTH CV 13.4 % (11.5-14.5); RED CELL DISTRIBUTION WIDTH SD 46.9 fL (36.4-46.3); WHITE BLOOD COUNT 8.87 K/uL (4.8-10.8)
[2017-06-06 07:34] LABS: CALCIUM 8.9 mg/dl (8.5-10.1); CREATININE 1.08 mg/dl (0.60-1.20); POTASSIUM 3.9 mmol/L (3.5-5.1)
[2017-06-06] MEDS: FUROSEMIDE INJ 40 MG in SYRINGE 0 ML IV SCH (08:04)
[2017-06-06] MEDS: ASCORBIC ACID 500 MG TAB PO SCH (08:04)
[2017-06-06] MEDS: POTASSIUM CHLORIDE 10 MEQ TABCR PO SCH ×2 (08:04→21:00)
[2017-06-06] MEDS: FERROUS SULFATE 325 MG TAB PO SCH (08:05)
[2017-06-06] MEDS: LOSARTAN POTASSIUM 50 MG TAB PO SCH (08:05)
[2017-06-06] MEDS: CYANOCOBALAMIN 500 MCG TAB (VIT B-12) PO SCH (08:05)
[2017-06-06] MEDS: ASPIRIN 81 MG ECTAB PO SCH (08:05)
[2017-06-06] MEDS: CETIRIZINE HCL 10 MG TAB PO SCH (08:05)
[2017-06-06] MEDS: CEROVITE ADV FORMULA TAB PO SCH (08:06)
[2017-06-06] MEDS: MAGNESIUM OXIDE 400 MG TAB PO SCH ×2 (08:06→21:00)
[2017-06-06] MEDS: FLUTICASONE/SALMETEROL 250/50 (ADVAIR) 14 PUFF/1 INHALER INH SCH ×2 (08:07→21:01)
[2017-06-06] MEDS: PANTOprazole SOD 40 MG TAB PO SCH (08:07)
[2017-06-06] MEDS: METOPROLOL TARTRATE 50 MG TAB PO SCH ×2 (08:07→21:01)
[2017-06-06] MEDS: HEPARIN SOD 5000 UNIT/0.5 ML CARP SQ SCH ×2 (08:08→21:05)
[2017-06-06] MEDS ORDERED: CEROVITE ADV FORMULA TAB PO SCH (09:00)
--- NOTE | 2017-06-06 10:18 | PULMONARY PROGRESS NOTE ---
DATE: 06/06/2017 TIME: 9:50 a.m. SUBJECTIVE: The patient is still short of breath. She feels about the same as she did last night. She is coughing fairly frequently. She is bringing up small quantities of yellow. She wore a BiPAP last night. She states she was overall comfortable with it. This morning she wanted it off a little early because she felt that she had a cough. She is not having any chest pains. OBJECTIVE: GENERAL: The patient looked somewhat short of breath at rest. She is very hard of hearing. VITAL SIGNS: Temperature is 36.4. Her maximum temperature since admission is 37.4. HEART: Heart rate was 70 per minute. The rhythm is regular. She has a blood pressure of 162/75. There is a systolic murmur grade 2/6. LUNGS: Auscultation of the lung an reveals again diffuse rales and wheezes bilaterally. She still seemed very tight. Respiratory rate was 20. Oxygen saturation was 94% on 5 liters. EXTREMITIES: Continues to show +2 edema of both lower extremities. There was very mild erythema on the anterior lower tibial surfaces. She does have a Cortes catheter in place. There is approximately 600 mL of urine in the Cortes, but I could not determine at what time it was emptied. It does not appear that she has had a significant urine output prior to this. LABORATORY DATA: White count today is 8.87. Hemoglobin 14.2. Platelets 216,000. Sodium 137, potassium 3.9, chloride 101, bicarbonate 30. BUN was 30 with a creatinine of 1.08. IMPRESSIONS: 1. Acute asthmatic bronchitis. 2. Congestive heart failure. 3. Chronic edema. COMMENTS AND RECOMMENDATIONS: The patient seems unchanged from last evening's exam. She remains quite tight. The patient was asking about discharge. She clearly is not ready for discharge at present. I do not believe she has had significant improvement and still sounds quite abnormal. I would continue with the respiratory related medicines that she has been on already. This would include the methylprednisolone, which is still at 40 mg IV q. 8 hours. We do need to keep tabs on her blood sugars with this. The patient has very poor sleep habits. She has a job that she works 3 nights per week. She also has a secondary job that she works for a few hours during the day. She has at least a few days a week where she works overnight, comes home, sleeps for a couple of hours and then goes to work again for a few hours. I believe this is all resulting in an abnormal sleep-wake schedule with likely insufficient sleep time and probably poor quality of sleep. I discussed this with the patient. She hesitated to give up either job because she states she needs the money. I believe it may be adversely affecting her health somewhat. In light of the fact she is comfortable with the BiPAP, we would continue with that. She did state that they mention that her saturations off the BiPAP without supplemental oxygen was quite low.
--- NOTE | 2017-06-06 11:27 | Cardiology Consultation ---
Cardiology Consultation Date of Consultation: Jun 06, 2017 History of Present Illness Dakotah Mustafa is a 72 year old female seen in cardiology consultation per the request of Tamika Rice PA-C for the evaluation of shortness of breath. The patient states that she has had progressive respiratory illness with symptoms of cough, wheezing, and shortness of breath that started last week. Otic ago when she started feeling her symptoms she was seen by her primary care provider placed in a course of prednisone a cough suppressant but her cough worsened through the weekend. Yesterday she was significantly short of breath. She presented to the emergency room yesterday at 12:32 PM she was found to be hypoxic with a pulse oximetry of 79% on room air. She has since been treated with methylprednisolone levofloxacin as well as BiPAP and supplementary oxygen. She also received furosemide 20 mg yesterday at 1507 another dose of 40 mg this morning. She had some interval improvement in her symptoms. She is fully catheter placed. She does however still demonstrated a significant cough. I actually initially met the patient last month on 04/24/17 and outpatient cardiology consultation. Prior to that she had recently been admitted in [place] for chest pain. Her enzymes were negative and she was discharged. Her field project manager, Dr. Renteria ,referred her to our cardiology group. She has a history of coronary heart disease as well as aortic valve disease with prior bioprosthetic aortic valve replacement performed in [place] in 2008. Past Medical/Surgical History Problem List: Medical Problems: (1) Arthritis of right hip (2) Asthma (3) CAD (coronary artery disease) (4) GERD (gastroesophageal reflux disease) (5) HLD (hyperlipidemia) (6) HTN (hypertension) (7) Hypothyroidism (8) Respiratory failure Surgical Problems: (1) H/O: hysterectomy (2) History of left heart catheterization (LHC) (3) History of right hip replacement (4) History of tonsillectomy and adenoidectomy (5) S/P AVR History Past Medical History: 1. History of coronary heart disease with non-ST segment elevation myocardial infarction in May 2008 for which she underwent cardiac catheterization in [place] treated with plain balloon angioplasty to the right PDA branch which was apparently too small to accommodate stenting 2. Progressive severe aortic stenosis noted on echocardiogram in February 2009 at [place] 3. Repeat preoperative cardiac catheterization performed 02/08/2009 was reportedly normal coronaries. 4. Elective aortic valve replacement with 23 mm Med[employer]onic Mosaic bioprosthesis 03/08/2009, [place] 5. Transesophageal echocardiogram performed September 2011 with reportedly normal functioning bioprosthetic aortic valve gradient 19 mmHg 6. Stage III chronic kidney disease 7. Hypertension 8. Dyslipidemia 9. History of COPD as well as restrictive lung disease as per her chart, details unknown Past Surgical History: 1. Cardiac catheterization 2 in 2008 2. 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 Family History: History of prostate cancer her father diabetes in her mother. Father apparently also had aortic valve replaced. Review Of Systems See above for pertinent positives & negatives. A total of 10 systems reviewed and were otherwise negative. Allergies Coded Allergies: Erythromycin (Verified Adverse Reaction, Unknown, GI UPSET AND CRAMPING, ) Tetracycline (Verified Adverse Reaction, Unknown, GI UPSET, 06/05/17) Medications Reported Home Medications Medications Dose Route/Sig Max Daily Dose Days Date Category Dose Instructions Potassium Chloride Er (Potassium Chloride) 10 Meq Tab 2 Tab PO DAILY 90 06/05/17 Reported Magnesium-Oxide (Magnesium Oxide) 400 Mg Tab 1 Tab PO PM 06/05/17 Reported Synthroid (Levothyroxine Sodium) 75 Mcg Tab 1 Tab PO DAILY 06/05/17 Reported Amoxil (Amoxicillin) 500 Mg Cap 500 Mg PO TID 06/04/17 Rx Vitamin B-12 (Cyanocobalamin) 1,000 Mcg Tab 1,000 Mcg PO DAILY 06/04/17 Reported Aspirin Ec (Aspirin) 81 Mg Tab 81 Mg PO DAILY 06/04/17 Reported Ocuvite Eye Health Formul (Multiple Vitamins W/ Minerals) 1 Cap Cap 1 Cap PO DAILY 06/04/17 Reported Mag-Ox (Magnesium Oxide) 400 Mg Tab 800 Mg PO DAILY 06/04/17 Reported Ascorbic Acid 500 Mg Tab 500 Mg PO DAILY 06/04/17 Reported Ventolin Hfa (Albuterol) 200 Puffs/51986 Mcg Aers 2 Puffs INH Q4 PRN 06/04/17 Reported Kp Ferrous Sulfate (Ferrous Sulfate) 325 Mg Tab 325 Mg PO DAILY 06/04/17 Reported WITH BREAKFAST Prednisone 20 Mg Tab 2 Tab PO DAILY 06/04/17 Reported X 5 DAYS (RX FILLED 06/01/17) Micro-K Ext Rel (Potassium Chloride) 10 Meq Capcr 10 Meq PO PM 06/04/17 Reported Centrum Silver 50+Women (Multiple Vitamins W/ Minerals) 1 Tab Tab 1 Tab PO DAILY 06/04/17 Reported Lopressor (Metoprolol Tartrate) 50 Mg Tab 50 Mg PO BID 06/04/17 Reported Advair Diskus 250-50 Mcg/Dose (Fluticasone Prop/Salmeterol) 14 Puff/1 Inhaler Aerp 1 Puff INH BID 09/21/15 Reported Zyrtec (Cetirizine HCl) 10 Mg Tab 10 Mg PO QAM 09/21/15 Reported Prilosec (Omeprazole) 20 Mg Capcr 20 Mg PO QAM 09/21/15 Reported Cozaar (Losartan Potassium) 100 Mg Tab 100 Mg PO QAM 09/21/15 Reported Zocor (Simvastatin) 40 Mg Tab 40 Mg PO QPM 09/21/15 Reported Nitrostat (Nitroglycerin) 0.4 Mg Tab 0.4 Mg UT PRN 09/21/15 Reported Lasix (Furosemide) 40 Mg Tab 20-40 Mg PO DAILY PRN 09/21/15 Reported Physical Exam Vital Signs (Last 8hrs): Last 8 Hrs Date Time Temp Pulse Resp B/P (MAP) Pulse Ox O2 Delivery O2 Flow Rate FiO2 06/06/17 08:03 36.4 70 16 162/75 (104) 94 Nasal Cannula 5.0 06/06/17 08:00 94 Nasal Cannula 5.0 06/06/17 07:10 67 18 95 Nasal Cannula 5.0 06/06/17 04:00 BiPAP 06/06/17 03:48 36.6 63 20 150/78 (102) 95 BiPAP 06/06/17 03:23 68 14 94 BiPAP/CPAP 40 06/06/17 03:22 68 94 40 General Appearance: Alert and Oriented x3. Ill in appearance compared to when I met her initially as an outpatient last month Head: Normocephalic Atraumatic. Eyes: PERRLA, EOMI, conjunctiva and sclera clear Neck: Supple. No carotid bruits noted. No JVD. No HJD. Respiratory: Inspiratory and expiratory wheezing noted, coarse cough Cardiovascular: Reg rate and rhythm. 2/6 systolic murmur heard best right and left sternal border Abdomen: Normal bowel sounds, soft nontender. no abdominal bruits. Extremities: No edema, no clubbing or cyanosis. distal pulses 2/4 bilaterally. Neuro: No focal deficits. : Cortes catheter in place draining clear yellow urine Data Last Resulted 06/06/17 06:36 Red Blood Count 4.60, Mean Corpuscular Volume 95.2, Mean Corpuscular Hemoglobin 30.9, Mean Corpuscular Hemoglobin Concent 32.4, Mean Platelet Volume 10.4, Neutrophils (%) (Auto) 87.0, Lymphocytes (%) (Auto) 6.3, Monocytes (%) (Auto) 6.3, Eosinophils (%) (Auto) 0.0, Basophils (%) (Auto) 0.1, Neutrophils # (Auto) 7.71, Lymphocytes # (Auto) 0.56, Monocytes # (Auto) 0.56, Eosinophils # (Auto) 0.00, Basophils # (Auto) 0.01 Last Resulted 06/06/17 06:36 Past 24 Hours Test 06/05/17 13:20 Range/Units Prothromb Time International Ratio 1.0 0.9-1.1 Prothrombin Time 10.1 9.0-12.0 SECONDS Troponin I < 0.015 0-0.045 ng/ml ProBNP 1836 PG per mL EKG tracings reveal sinus rhythm with interventricular conduction delay poor R- wave progression throughout the precordial leads, unchanged compared to prior outpatient EKG performed at [place], Troponin 1 was negative Assessment & Plan Echocardiogram performed 04/06/2017 within the [employer] system with images reviewed independently 04/24/17 today 's: Concern for bioprosthetic aortic valve obstruction was noted. ~The peak recorded continuous-wave Doppler velocity was 4.2 meters per second with mean aortic valve gradient of 34 millimeters Hg, max gradient of 72 millimeters Hg, and calculated aortic valve area of 0.6 centimeter squared. ~The aortic root and proximal ascending aorta diameters were within normal limits. I personally performed measurements of the peak Doppler velocities, and per my assessment, I think the peak velocity was closer to 3.8 meters/second as compared to 4.2 meters/second. Left ventricular ejection fraction was normal with EF of 6065% and no wall motion abnormalities Impression: 72-year-old female 1. Acute bronchitis 2. Underlying severe prosthetic aortic valve stenosis Recommendations: When I had seen the patient last month she described as stable progressive decline in terms of her shortness of breath and she minimized her symptoms for the most part. She states that her had a respiratory illness a few days prior to onset of her symptoms. I think that she likely does have an underlying respiratory illness that her reserve is low given her underlying significant valvular disease. They previously referred her to Dr Guerra , tire mold engraver at [facility] specializes in structural heart disease performs transcatheter aortic valve replacement for discussion regarding her candidacy for possible valve valve transcatheter aortic valve replacement. She is tentatively scheduled to have further evaluation of her anatomy with a CT of the chest and to see cardiac surgery next month for discussion stratification candidacy surgical aortic valve replacement versus transcatheter aortic valve replacement. At present, her chest x-ray was not overwhelmingly impressive for CHF. I think is reasonable to consider cautious diuretic therapy as her blood pressure and renal function allows, to continue supportive care for her respiratory infection. I do not think she needs emergent valvular intervention and we can continue this workup as an outpatient. At present, most recent echocardiogram performed last month in April 2017 therefore I do not think he needs to repeat it right now this is a change in her status as her hospital stay develops and I will keep this in mind when I see her.
[2017-06-06] MEDS: LEVOFLOXACIN / D5W 500 MG in PREMIXED IN D5W 100 ML IV SCH (13:29)
--- NOTE | 2017-06-06 15:26 | Progress Note ---
Internal Med Progress Note Date of Service: Jun 06, 2017. Provider Documentation: SUBJECTIVE: resting comfortably afebrile sob is better has some cough no pain feels slightly better than yesterday OBJECTIVE: Vital Signs-as noted below Exam: General-alert and oriented. Not in distress ENT-Normal hearing Neck-no neck masses Lungs-cta b/l b/l rhonchi heard Heart-S1 and S2 heard regular rate and rhythm, no murmurs Abdomen-soft bowel sounds present no tenderness no distension Extremities-lower extremity edema present no erythema Neuro-alert and awake moves extremities Lab data as noted below. ASSESSMENT & PLAN: ACUTE RESPIRATORY FAILURE acute asthmatic bronchitis acute diastolic chf secondary to valvular heart disease initially required bipap Acute asthmatic bronchitis currently on iv solumedrol, Levaquin and nebs pulmonary on board appreciate inputs Acute diastolic CHF secondary to on iv Lasix 40mg daily appreciate cardiology inputs plan for out patient workup for . CAD/HTN continue metoprolol, ASA, losartan will monitor. CKD III Cr 1.09 (~baseline 1.1) will monitor labs on Lasix HYPOTHYROIDISM TSH Normal On levothyroxine DVT PROPHYLAXIS heparin SQ DISPOSITION Monitor in tele DNR/DNI as per admission. Vital Signs: Date Time Temp Pulse Resp B/P (MAP) Pulse Ox O2 Delivery O2 Flow Rate FiO2 06/06/17 14:10 73 18 96 Nasal Cannula 5.0 06/06/17 12:00 Nasal Cannula 5.0 06/06/17 11:39 36.7 78 22 131/79 (96) 92 Nasal Cannula 5.0 06/06/17 08:03 36.4 70 16 162/75 (104) 94 Nasal Cannula 5.0 06/06/17 08:00 94 Nasal Cannula 5.0 06/06/17 07:10 67 18 95 Nasal Cannula 5.0 06/06/17 04:00 BiPAP 06/06/17 03:48 36.6 63 20 150/78 (102) 95 BiPAP 06/06/17 03:23 68 14 94 BiPAP/CPAP 40 06/06/17 03:22 68 94 40 06/05/17 23:59 BiPAP 06/05/17 23:11 36.9 59 19 122/69 (86) 92 BiPAP 06/05/17 22:44 71 93 40 06/05/17 20:20 Oxymask 5.0 06/05/17 19:41 36.5 84 22 102/63 (76) 94 Nasal Cannula 5.0 06/05/17 19:26 86 20 93 Mask 5.0 06/05/17 17:48 81 20 94 Diffusion Mask 5.0 06/05/17 17:45 36.5 82 20 143/87 94 Mask 5.0 06/05/17 16:56 78 20 118/73 92 BiPAP 06/05/17 16:02 89 20 104/64 91 BiPAP 06/05/17 15:20 99 24 132/69 95 BiPAP Lab Results: Results Past 24 Hours Test 06/06/17 06:36 Range/Units White Blood Count 8.87 4.8-10.8 K/uL Red Blood Count 4.60 4.2-5.4 M/uL Hemoglobin 14.2 12.0-16.0 g/dL Hematocrit 43.8 37-47 % Mean Corpuscular Volume 95.2 80-100 fL Mean Corpuscular Hemoglobin 30.9 25-34 pg Mean Corpuscular Hemoglobin Concent 32.4 32-36 g/dl Platelet Count 216 130-400 K/uL Mean Platelet Volume 10.4 7.4-10.4 fL Neutrophils (%) (Auto) 87.0 % Lymphocytes (%) (Auto) 6.3 % Monocytes (%) (Auto) 6.3 % Eosinophils (%) (Auto) 0.0 % Basophils (%) (Auto) 0.1 % Neutrophils # (Auto) 7.71 1.4-6.5 K/uL Lymphocytes # (Auto) 0.56 1.2-3.4 K/uL Monocytes # (Auto) 0.56 0.11-0.59 K/uL Eosinophils # (Auto) 0.00 0-0.5 K/uL Basophils # (Auto) 0.01 0-0.2 K/uL RDW Standard Deviation 46.9 36.4-46.3 fL RDW Coefficient of Variation 13.4 11.5-14.5 % Immature Granulocyte % (Auto) 0.3 % Immature Granulocyte # (Auto) 0.03 0.00-0.02 K/uL Sodium Level 137 136-145 mmol/L Potassium Level 3.9 3.5-5.1 mmol/L Chloride Level 101 98-107 mmol/L Carbon Dioxide Level 30 21-32 mmol/L Anion Gap 6.0 3-11 mmol/L Blood Urea Nitrogen 30 7-18 mg/dl Creatinine 1.08 0.60-1.20 mg/dl Est Creatinine Clear Calc Drug Dose 46.2 ml/min Estimated GFR () 58.6 Estimated GFR (Non- 50.5 BUN/Creatinine Ratio 28.0 10-20 Random Glucose 159 70-99 mg/dl Calcium Level 8.9 8.5-10.1 mg/dl Magnesium Level 2.9 1.8-2.4 mg/dl
[2017-06-06] MEDS: SIMVASTATIN 40 MG TAB PO SCH (21:01)
[2017-06-07] VITALS (11 sets, daily range): BP systolic 124–160; BP diastolic 73–98; PULSE 69–80; TEMP 36.3–36.8; O2SAT 91–97
[2017-06-07] MEDS: LEVALBUTEROL 1.25MG/0.5ML NEB INH SCH ×4 (01:42→20:56)
[2017-06-07] MEDS: IPRATROPIUM BROMIDE NEB SOLN 0.02% 2.5 ML VIAL INH SCH ×4 (01:42→20:57)
[2017-06-07] MEDS: LEVOTHYROXINE 75 MCG TAB PO SCH (06:16)
[2017-06-07] MEDS: METHYLPREDNISOLONE IV 40 MG in SYRINGE 0 ML IV SCH ×3 (06:16→21:24)
[2017-06-07] MEDS: FLUTICASONE/SALMETEROL 250/50 (ADVAIR) 14 PUFF/1 INHALER INH SCH ×2 (07:47→21:20)
[2017-06-07] MEDS: LOSARTAN POTASSIUM 50 MG TAB PO SCH (07:48)
[2017-06-07] MEDS: ASPIRIN 81 MG ECTAB PO SCH (07:48)
[2017-06-07] MEDS: FUROSEMIDE INJ 40 MG in SYRINGE 0 ML IV SCH (07:48)
[2017-06-07] MEDS: CETIRIZINE HCL 10 MG TAB PO SCH (07:48)
[2017-06-07] MEDS: CEROVITE ADV FORMULA TAB PO SCH (07:48)
[2017-06-07] MEDS: FERROUS SULFATE 325 MG TAB PO SCH (07:49)
[2017-06-07] MEDS: CYANOCOBALAMIN 500 MCG TAB (VIT B-12) PO SCH (07:49)
[2017-06-07] MEDS: MAGNESIUM OXIDE 400 MG TAB PO SCH ×2 (07:49→21:24)
[2017-06-07] MEDS: POTASSIUM CHLORIDE 10 MEQ TABCR PO SCH ×2 (07:50→21:22)
[2017-06-07] MEDS: ASCORBIC ACID 500 MG TAB PO SCH (07:50)
[2017-06-07] MEDS: PANTOprazole SOD 40 MG TAB PO SCH (07:50)
[2017-06-07] MEDS: METOPROLOL TARTRATE 50 MG TAB PO SCH ×2 (07:51→21:23)
[2017-06-07] MEDS: HEPARIN SOD 5000 UNIT/0.5 ML CARP SQ SCH ×2 (07:53→21:26)
[2017-06-07 08:48] LABS: CALCIUM 9.3 mg/dl (8.5-10.1); CREATININE 1.24 mg/dl (0.60-1.20); POTASSIUM 4.2 mmol/L (3.5-5.1)
--- NOTE | 2017-06-07 10:25 | Cardiology Follow-Up ---
Subjective General Date of Service: Jun 07, 2017. Chief Complaint: follow-up shortness of breath, cough, hypoxia Pt evaluation today including: conversation w/ patient, physical exam History of Present Illness The patient is a 72 year old female seen in cardiology follow-up. The patient has not made significant improvement in the last 24 hour she feels short of breath with minimal exertion such as walking to the bathroom still has significant expiratory wheezing and a high oxygen requirement. Allergies Coded Allergies: Erythromycin (Verified Adverse Reaction, Unknown, GI UPSET AND CRAMPING, ) Tetracycline (Verified Adverse Reaction, Unknown, GI UPSET, 06/05/17) Social History Smoking Status: Never Smoker Hx Tobacco Use In Past Year?: No Hx Alcohol Use - Type And Amou: Yes (6 DRINKS PER WEEK- beer) Hx Substance Use - Type And Am: No Problem List Medical Problems: (1) Acute on chronic respiratory failure with hypoxia and hypercapnia Status: Acute (2) COPD with exacerbation Status: Acute (3) Hypercapnic respiratory failure Status: Acute (4) Hypoxic Status: Acute Physical Exam Vital Signs Last Vital Signs Documentation Date Time Temp Pulse Resp B/P (MAP) Pulse Ox O2 Delivery O2 Flow Rate FiO2 06/07/17 08:00 Nasal Cannula 5.0 06/07/17 07:57 36.7 80 18 150/98 (115) 93 06/06/17 23:27 40 Physical Exam Constitutional: Level of Distress: NAD Head: normocephalic Neck: supple Lungs: Auscultation: no rales/crackles, expiratory wheezing Cardiovascular: Heart Auscultation: RRR, II/ CHAN Musculoskeletal: normal Extremities: no edema Neurologic: Gait & Station: pertinent finding (no focal deficits) Assessment and Plan Assessment and Plan EKG performed this morning revealed sinus rhythm, interventricular conduction delay, poor R wave progression in leads V1 to V6. Unchanged compared to prior baseline Impression: 72-year-old female 1. Acute bronchitis 2. Underlying severe prosthetic aortic valve stenosis Plan: Continue supportive care for bronchitis. OK to continue IV diuretics to keep I/ Os even to prevent volume overload with administration of IV medications. Laboratory Results Last 24 Hours Test 06/07/17 08:04 Sodium Level 137 mmol/L Potassium Level 4.2 mmol/L Chloride Level 101 mmol/L Carbon Dioxide Level 29 mmol/L Anion Gap 7.0 mmol/L Blood Urea Nitrogen 39 mg/dl Creatinine 1.24 mg/dl Est Creatinine Clear Calc Drug Dose 40.1 ml/min Estimated GFR () 49.6 Estimated GFR (Non- 42.8 BUN/Creatinine Ratio 31.8 Random Glucose 211 mg/dl Calcium Level 9.3 mg/dl
--- NOTE | 2017-06-07 13:45 | Progress Note ---
Internal Med Progress Note Date of Service: Jun 07, 2017. Provider Documentation: SUBJECTIVE: resting comfortably hard to hear says sob is same denies chest pain has cough afebrile no nausea OBJECTIVE: Vital Signs-as noted below Exam: General-alert and oriented. Not in distress ENT-Normal hearing Neck-no neck masses Lungs-cta b/l b/l rhonchi heard Heart-S1 and S2 heard regular rate and rhythm, no murmurs Abdomen-soft bowel sounds present no tenderness no distension Extremities-lower extremity edema present no erythema Neuro-alert and awake moves extremities Lab data as noted below. ASSESSMENT & PLAN: ACUTE RESPIRATORY FAILURE acute asthmatic bronchitis acute diastolic chf secondary to valvular heart disease initially required bipap two step prior to discharge Acute asthmatic bronchitis currently on iv solumedrol, Levaquin and nebs pulmonary on board appreciate inputs slow improvement continue same Acute diastolic CHF secondary to on iv Lasix 40mg daily appreciate cardiology inputs plan for out patient workup for . continue same CAD/HTN continue metoprolol, ASA, losartan will monitor. CKD III Cr 1.09 (~baseline 1.1) cr 1.2 today will monitor labs on Lasix HYPOTHYROIDISM TSH Normal On levothyroxine DVT PROPHYLAXIS heparin SQ DISPOSITION Monitor in tele pt/ot DNR/DNI as per admission. Vital Signs: Date Time Temp Pulse Resp B/P (MAP) Pulse Ox O2 Delivery O2 Flow Rate FiO2 06/07/17 12:00 Nasal Cannula 5.0 06/07/17 11:39 36.8 74 18 154/84 (107) 96 06/07/17 08:00 Nasal Cannula 5.0 06/07/17 07:57 36.7 80 18 150/98 (115) 93 06/07/17 06:59 73 16 97 Nasal Cannula 4.0 06/07/17 04:00 Nasal Cannula 5.0 06/07/17 03:18 36.4 69 22 137/94 (108) 94 Nasal Cannula 4.0 06/07/17 01:42 74 16 96 Nasal Cannula 4.0 06/06/17 23:59 Nasal Cannula 5.0 06/06/17 23:48 36.5 72 20 142/91 (108) 97 BiPAP 06/06/17 23:27 67 93 40 06/06/17 20:00 Nasal Cannula 5.0 06/06/17 19:58 80 18 91 Nasal Cannula 4.0 06/06/17 19:18 36.7 77 18 138/75 (96) 92 Nasal Cannula 4.0 06/06/17 16:00 Nasal Cannula 5.0 06/06/17 15:26 36.6 73 18 128/85 (99) 92 Nasal Cannula 4.0 06/06/17 14:10 73 18 96 Nasal Cannula 5.0 Lab Results: Results Past 24 Hours Test 06/07/17 08:04 Range/Units Sodium Level 137 136-145 mmol/L Potassium Level 4.2 3.5-5.1 mmol/L Chloride Level 101 98-107 mmol/L Carbon Dioxide Level 29 21-32 mmol/L Anion Gap 7.0 3-11 mmol/L Blood Urea Nitrogen 39 7-18 mg/dl Creatinine 1.24 0.60-1.20 mg/dl Est Creatinine Clear Calc Drug Dose 40.1 ml/min Estimated GFR () 49.6 Estimated GFR (Non- 42.8 BUN/Creatinine Ratio 31.8 10-20 Random Glucose 211 70-99 mg/dl Calcium Level 9.3 8.5-10.1 mg/dl
[2017-06-07] MEDS: LEVOFLOXACIN / D5W 500 MG in PREMIXED IN D5W 100 ML IV SCH (13:58)
--- NOTE | 2017-06-07 18:22 | PULMONARY PROGRESS NOTE ---
DATE: 06/07/2017 TIME: 5:50 p.m. SUBJECTIVE: The patient remains short of breath. She feels her degree of shortness of breath is the same as yesterday. Her cough is mild but no change as well. OBJECTIVE: GENERAL: The patient did not appear in distress. She was, however, just sitting on the commode at the time I came in. She has been afebrile. VITAL SIGNS: Current temperature 36.8. Heart rate is 76 per minute. Blood pressure 124/85. LUNGS: Respiratory rate was 20. Diffuse wheezes and rales are heard bilaterally. Oxygen saturation has most recently noted to be 93% on nasal cannula. LABORATORY DATA: Electrolytes show sodium 137, potassium 4.2, chloride 101, bicarbonate 29. BUN is 39 with a creatinine of 1.24. IMPRESSIONS: 1. Acute asthmatic bronchitis. 2. Possible mild congestive heart failure. 3. Chronic edema. COMMENTS AND RECOMMENDATIONS: The patient remains on levofloxacin. She is still on furosemide. She is still on methylprednisolone. I would be reluctant to change that at present considering how tight she is. She is getting levalbuterol and ipratropium every 6 hours. Would continue the current course. We will recheck a chest x-ray for tomorrow morning.
[2017-06-07] MEDS: SIMVASTATIN 40 MG TAB PO SCH (21:23)
[2017-06-08] VITALS (15 sets, daily range): BP systolic 125–166; BP diastolic 64–91; PULSE 60–88; TEMP 36.3–36.8; O2SAT 91–97
[2017-06-08] MEDS: LEVALBUTEROL 1.25MG/0.5ML NEB INH SCH ×4 (02:17→20:06)
[2017-06-08] MEDS: IPRATROPIUM BROMIDE NEB SOLN 0.02% 2.5 ML VIAL INH SCH ×4 (02:17→20:06)
[2017-06-08] MEDS: METHYLPREDNISOLONE IV 40 MG in SYRINGE 0 ML IV SCH ×2 (05:38→20:35)
[2017-06-08] MEDS: LEVOTHYROXINE 75 MCG TAB PO SCH (05:38)
[2017-06-08 07:19] LABS: BASO % 0.1 %; BASO ABS # 0.01 K/uL (0-0.2); HEMATOCRIT 46.7 % (37-47); HEMOGLOBIN 15.1 g/dL (12.0-16.0); IG# 0.05 K/uL (0.00-0.02); LYMPH ABS # 0.69 K/uL (1.2-3.4); MEAN CELL VOLUME 96.9 fL (80-100); MEAN CORPUSCULAR HEMOGLOBIN 31.3 pg (25-34); MEAN CORPUSCULAR HGB CONC 32.3 g/dl (32-36); MEAN PLATELET VOLUME 10.6 fL (7.4-10.4); MONO % 6.4 %; MONO ABS # 0.63 K/uL (0.11-0.59); NEUT ABS # 8.51 K/uL (1.4-6.5); PLATELET COUNT 254 K/uL (130-400); RED CELL DISTRIBUTION WIDTH CV 13.3 % (11.5-14.5); RED CELL DISTRIBUTION WIDTH SD 46.9 fL (36.4-46.3); WHITE BLOOD COUNT 9.89 K/uL (4.8-10.8)
[2017-06-08 07:45] LABS: CALCIUM 9.1 mg/dl (8.5-10.1); CREATININE 1.17 mg/dl (0.60-1.20); POTASSIUM 4.6 mmol/L (3.5-5.1)
[2017-06-08] MEDS: POTASSIUM CHLORIDE 10 MEQ TABCR PO SCH ×2 (07:54→20:35)
[2017-06-08] MEDS: FERROUS SULFATE 325 MG TAB PO SCH (07:54)
[2017-06-08] MEDS: LOSARTAN POTASSIUM 50 MG TAB PO SCH (07:54)
[2017-06-08] MEDS: FLUTICASONE/SALMETEROL 250/50 (ADVAIR) 14 PUFF/1 INHALER INH SCH ×2 (07:54→20:34)
[2017-06-08] MEDS: ASPIRIN 81 MG ECTAB PO SCH (07:54)
[2017-06-08] MEDS: CETIRIZINE HCL 10 MG TAB PO SCH (07:55)
[2017-06-08] MEDS: CYANOCOBALAMIN 500 MCG TAB (VIT B-12) PO SCH (07:55)
[2017-06-08] MEDS: PANTOprazole SOD 40 MG TAB PO SCH (07:55)
[2017-06-08] MEDS: CEROVITE ADV FORMULA TAB PO SCH (07:55)
[2017-06-08] MEDS: ASCORBIC ACID 500 MG TAB PO SCH (07:55)
[2017-06-08] MEDS: MAGNESIUM OXIDE 400 MG TAB PO SCH ×2 (07:55→20:36)
[2017-06-08] MEDS: METOPROLOL TARTRATE 50 MG TAB PO SCH ×2 (07:55→20:36)
[2017-06-08] MEDS: HEPARIN SOD 5000 UNIT/0.5 ML CARP SQ SCH ×2 (07:58→20:47)
--- NOTE | 2017-06-08 08:36 | DIAGNOSTIC IMAGING REPORT ---
CHEST ONE VIEW PORTABLE CLINICAL HISTORY: SOB RESPIRATORY FAILURE COMPARISON STUDY: 06/05/2017 FINDINGS: There are postsurgical changes of a midline sternotomy. The heart is normal in size. There is mild interstitial thickening similar to the prior study. There is no lobar consolidation. A linear opacity within left midlung zone likely represents atelectasis. There are no significant pleural effusions.[ IMPRESSION: Mild interstitial thickening similar to the prior study. No evidence of lobar consolidation Electronically signed by: Josiah Lema M.D. 06/08/2017 8:35 AM Dictated Date/Time: 06/08/2017 8:33 AM
[2017-06-08] MEDS: FUROSEMIDE INJ 40 MG in SYRINGE 0 ML IV SCH (09:01)
[2017-06-08] MEDS: LEVOFLOXACIN 500 MG TAB PO SCH (10:42)
--- NOTE | 2017-06-08 11:28 | PULMONARY PROGRESS NOTE ---
DATE: 06/08/2017 TIME: 10:50 a.m. SUBJECTIVE: The patient remains with shortness of breath. She does not notice any difference from yesterday. Her cough is still mild, but the shortness of breath is still persistent. She has not had any chest pains. She has had no chills, fevers or sweats. OBJECTIVE: VITAL SIGNS: Temperature was 36.5. GENERAL: At rest, she was quite comfortable. HEART: Rate was 89 per minute. The rhythm is regular. Blood pressure 166/91. LUNGS: Auscultation of the lung an continues to reveal diffuse wheezes and rales bilaterally, both anteriorly and posteriorly. It is more posterior. Her respiratory rates are 20 breaths per minute. Saturation was 94% on 3 liters. EXTREMITIES: Showed persistent edema in the lower extremities, but it seemed to be a bit less. IMAGING STUDIES: Chest x-ray done today again shows mild interstitial thickening, but no evidence of lobar consolidation. LABORATORY DATA: White count is 9.89. Hemoglobin 15.1. Platelets 254,000. Electrolytes show sodium 140, potassium 4.6, chloride 102, bicarbonate 34. The BUN is 45 with a creatinine of 1.17. The BUN does continue to rise. IMPRESSIONS: 1. Acute asthmatic bronchitis. 2. Congestive heart failure. 3. Chronic edema. COMMENTS AND RECOMMENDATIONS: The patient is clearly not ready for discharge. With the rising BUN, an adjustment may need to be made in the diuretic. I will defer this to cardiology and medicine. I would continue the levofloxacin. Although she is only marginally improved, I am going to decrease the dose of the methylprednisolone to 40 q. 12. I would continue with her neb treatments as present.
--- NOTE | 2017-06-08 12:43 | Cardiology Follow-Up ---
Subjective General Date of Service: Jun 08, 2017. Chief Complaint: follow-up shortness of breath, cough, hypoxia Pt evaluation today including: conversation w/ patient, physical exam, chart review, lab review, review of studies, review of inpatient medication list History of Present Illness Patient with ongoing SOB and cough, mildly improved from yesterday. Still notes intermittent wheezing. Denies chest pain. No dizziness, syncope or near syncope. Edema improved from her "baseline". Allergies Coded Allergies: Erythromycin (Verified Adverse Reaction, Unknown, GI UPSET AND CRAMPING, ) Tetracycline (Verified Adverse Reaction, Unknown, GI UPSET, 06/05/17) Social History Smoking Status: Never Smoker Hx Tobacco Use In Past Year?: No Hx Alcohol Use - Type And Amou: Yes (6 DRINKS PER WEEK- beer) Hx Substance Use - Type And Am: No Problem List Medical Problems: (1) Acute on chronic respiratory failure with hypoxia and hypercapnia Status: Acute (2) COPD with exacerbation Status: Acute (3) Hypercapnic respiratory failure Status: Acute (4) Hypoxic Status: Acute Review of Systems Respiratory: + cough, + wheezing, + shortness of breath, No sputum, No hemoptysis Cardiac: + edema, No chest pain, No orthopnea, No PND, No palpitations Physical Exam Vital Signs Last Vital Signs Documentation Date Time Temp Pulse Resp B/P (MAP) Pulse Ox O2 Delivery O2 Flow Rate FiO2 06/08/17 11:15 36.3 79 20 162/83 (109) 92 3.0 06/08/17 07:45 Nasal Cannula 06/07/17 23:15 40 Physical Exam Constitutional: Level of Distress: NAD Head: normocephalic Neck: supple Lungs: Auscultation: no rales/crackles, expiratory wheezing Cardiovascular: Heart Auscultation: RRR, II/ CHAN Musculoskeletal: normal Extremities: edema (trace b/l edema) Neurologic: Gait & Station: pertinent finding (no focal deficits) Assessment and Plan Assessment and Plan Impression: 72-year-old female 1. Acute bronchitis 2. Underlying severe prosthetic aortic valve stenosis, future TAVR planned once respiratory status improves Plan: Continue supportive care for bronchitis. Continue IV furosemide. Transition to oral furosemide, home dose on discharge. Discussed with Dr. Villanueva. Will follow. CARDIOLOGY ATTENDING ADDENDUM: The patient was seen and personally examined. Agree with Maria Antonia Monreal PA-C's findings and plans as documented above. The patient has no new complaints. From a cardiac standpoint she can be discharged per the hospitalist with outpatient follow-up. Laboratory Results Last 24 Hours Test 06/08/17 06:17 White Blood Count 9.89 K/uL Red Blood Count 4.82 M/uL Hemoglobin 15.1 g/dL Hematocrit 46.7 % Mean Corpuscular Volume 96.9 fL Mean Corpuscular Hemoglobin 31.3 pg Mean Corpuscular Hemoglobin Concent 32.3 g/dl Platelet Count 254 K/uL Mean Platelet Volume 10.6 fL Neutrophils (%) (Auto) 86.0 % Lymphocytes (%) (Auto) 7.0 % Monocytes (%) (Auto) 6.4 % Eosinophils (%) (Auto) 0.0 % Basophils (%) (Auto) 0.1 % Neutrophils # (Auto) 8.51 K/uL Lymphocytes # (Auto) 0.69 K/uL Monocytes # (Auto) 0.63 K/uL Eosinophils # (Auto) 0.00 K/uL Basophils # (Auto) 0.01 K/uL RDW Standard Deviation 46.9 fL RDW Coefficient of Variation 13.3 % Immature Granulocyte % (Auto) 0.5 % Immature Granulocyte # (Auto) 0.05 K/uL Sodium Level 140 mmol/L Potassium Level 4.6 mmol/L Chloride Level 102 mmol/L Carbon Dioxide Level 34 mmol/L Anion Gap 3.0 mmol/L Blood Urea Nitrogen 45 mg/dl Creatinine 1.17 mg/dl Est Creatinine Clear Calc Drug Dose 42.3 ml/min Estimated GFR () 53.2 Estimated GFR (Non- 45.9 BUN/Creatinine Ratio 38.8 Random Glucose 182 mg/dl Calcium Level 9.1 mg/dl Magnesium Level 2.9 mg/dl
--- NOTE | 2017-06-08 15:08 | Progress Note ---
Internal Med Progress Note Date of Service: Jun 08, 2017. Provider Documentation: SUBJECTIVE: resting comfortably hard to hear says sob is getting better cough is better afebrile eating ok slept ok OBJECTIVE: Vital Signs-as noted below Exam: General-alert and oriented. Not in distress ENT-Normal hearing Neck-no neck masses Lungs-cta b/l b/l mild wheezing no crackles Heart-S1 and S2 heard regular rate and rhythm, no murmurs Abdomen-soft bowel sounds present no tenderness no distension Extremities-lower extremity edema present no erythema Neuro-alert and awake moves extremities Lab data as noted below. ASSESSMENT & PLAN: ACUTE RESPIRATORY FAILURE acute asthmatic bronchitis acute diastolic chf secondary to valvular heart disease initially required bipap two step prior to discharge Acute asthmatic bronchitis currently on iv solumedrol, Levaquin and nebs pulmonary on board appreciate inputs slow improvement continue iv steroids for now will monitor Acute diastolic CHF secondary to on iv Lasix 40mg daily appreciate cardiology inputs plan for out patient workup for . continue same for now CAD/HTN continue metoprolol, ASA, losartan will monitor. CKD III Cr 1.09 (~baseline 1.1) cr 1.1 today will monitor labs on Lasix HYPOTHYROIDISM TSH Normal On levothyroxine DVT PROPHYLAXIS heparin SQ DISPOSITION Monitor in tele pt/ot to be determined DNR/DNI as per admission. Vital Signs: Date Time Temp Pulse Resp B/P (MAP) Pulse Ox O2 Delivery O2 Flow Rate FiO2 06/08/17 14:56 36.8 77 20 139/83 (101) 93 3.0 06/08/17 14:34 85 16 96 Nasal Cannula 3.0 06/08/17 13:01 92 Nasal Cannula 3.0 40 06/08/17 11:15 36.3 79 20 162/83 (109) 92 3.0 06/08/17 07:45 Nasal Cannula 3.0 06/08/17 07:41 36.5 72 20 166/91 (116) 94 06/08/17 07:17 69 18 96 Nasal Cannula 4.0 06/08/17 04:42 36.5 60 16 153/78 (103) 94 Nasal Cannula 4.0 06/08/17 04:00 97 BiPAP 4.0 06/08/17 02:17 74 18 94 Nasal Cannula 4.0 06/08/17 00:00 97 BiPAP 4.0 06/07/17 23:15 74 97 40 06/07/17 22:59 36.3 70 20 129/83 (98) 96 BiPAP 06/07/17 20:58 75 16 91 Nasal Cannula 4.0 06/07/17 20:00 Nasal Cannula 5.0 06/07/17 18:40 36.4 78 18 160/73 (102) 91 06/07/17 16:00 Nasal Cannula 5.0 06/07/17 15:36 36.8 76 18 124/85 (98) 93 Nasal Cannula 2.0 Lab Results: Results Past 24 Hours Test 06/08/17 06:17 Range/Units White Blood Count 9.89 4.8-10.8 K/uL Red Blood Count 4.82 4.2-5.4 M/uL Hemoglobin 15.1 12.0-16.0 g/dL Hematocrit 46.7 37-47 % Mean Corpuscular Volume 96.9 80-100 fL Mean Corpuscular Hemoglobin 31.3 25-34 pg Mean Corpuscular Hemoglobin Concent 32.3 32-36 g/dl Platelet Count 254 130-400 K/uL Mean Platelet Volume 10.6 7.4-10.4 fL Neutrophils (%) (Auto) 86.0 % Lymphocytes (%) (Auto) 7.0 % Monocytes (%) (Auto) 6.4 % Eosinophils (%) (Auto) 0.0 % Basophils (%) (Auto) 0.1 % Neutrophils # (Auto) 8.51 1.4-6.5 K/uL Lymphocytes # (Auto) 0.69 1.2-3.4 K/uL Monocytes # (Auto) 0.63 0.11-0.59 K/uL Eosinophils # (Auto) 0.00 0-0.5 K/uL Basophils # (Auto) 0.01 0-0.2 K/uL RDW Standard Deviation 46.9 36.4-46.3 fL RDW Coefficient of Variation 13.3 11.5-14.5 % Immature Granulocyte % (Auto) 0.5 % Immature Granulocyte # (Auto) 0.05 0.00-0.02 K/uL Sodium Level 140 136-145 mmol/L Potassium Level 4.6 3.5-5.1 mmol/L Chloride Level 102 98-107 mmol/L Carbon Dioxide Level 34 21-32 mmol/L Anion Gap 3.0 3-11 mmol/L Blood Urea Nitrogen 45 7-18 mg/dl Creatinine 1.17 0.60-1.20 mg/dl Est Creatinine Clear Calc Drug Dose 42.3 ml/min Estimated GFR () 53.2 Estimated GFR (Non- 45.9 BUN/Creatinine Ratio 38.8 10-20 Random Glucose 182 70-99 mg/dl Calcium Level 9.1 8.5-10.1 mg/dl Magnesium Level 2.9 1.8-2.4 mg/dl
[2017-06-08] MEDS: SIMVASTATIN 40 MG TAB PO SCH (20:36)
[2017-06-09] VITALS (9 sets, daily range): BP systolic 144–169; BP diastolic 70–88; PULSE 70–80; TEMP 36.2–36.7; O2SAT 91–96
[2017-06-09] MEDS: LEVALBUTEROL 1.25MG/0.5ML NEB INH SCH ×4 (02:24→18:48)
[2017-06-09] MEDS: IPRATROPIUM BROMIDE NEB SOLN 0.02% 2.5 ML VIAL INH SCH ×4 (02:24→18:48)
[2017-06-09] MEDS: LEVOTHYROXINE 75 MCG TAB PO SCH (06:18)
[2017-06-09 06:56] LABS: BASO % 0.1 %; BASO ABS # 0.01 K/uL (0-0.2); HEMATOCRIT 46.7 % (37-47); HEMOGLOBIN 15.1 g/dL (12.0-16.0); IG# 0.07 K/uL (0.00-0.02); LYMPH % 9.9 %; LYMPH ABS # 0.83 K/uL (1.2-3.4); MEAN CELL VOLUME 96.3 fL (80-100); MEAN CORPUSCULAR HEMOGLOBIN 31.1 pg (25-34); MEAN CORPUSCULAR HGB CONC 32.3 g/dl (32-36); MEAN PLATELET VOLUME 10.2 fL (7.4-10.4); MONO ABS # 0.59 K/uL (0.11-0.59); NEUT % 82.2 %; NEUT ABS # 6.92 K/uL (1.4-6.5); PLATELET COUNT 229 K/uL (130-400); RED CELL DISTRIBUTION WIDTH CV 13.2 % (11.5-14.5); RED CELL DISTRIBUTION WIDTH SD 46.8 fL (36.4-46.3); WHITE BLOOD COUNT 8.42 K/uL (4.8-10.8)
[2017-06-09 07:30] LABS: CALCIUM 8.9 mg/dl (8.5-10.1); CREATININE 1.1 mg/dl (0.60-1.20); POTASSIUM 4.6 mmol/L (3.5-5.1)
[2017-06-09] MEDS: CETIRIZINE HCL 10 MG TAB PO SCH (08:28)
[2017-06-09] MEDS: CEROVITE ADV FORMULA TAB PO SCH (08:28)
[2017-06-09] MEDS: CYANOCOBALAMIN 500 MCG TAB (VIT B-12) PO SCH (08:28)
[2017-06-09] MEDS: ASCORBIC ACID 500 MG TAB PO SCH (08:28)
[2017-06-09] MEDS: FLUTICASONE/SALMETEROL 250/50 (ADVAIR) 14 PUFF/1 INHALER INH SCH ×2 (08:28→20:38)
[2017-06-09] MEDS: METOPROLOL TARTRATE 50 MG TAB PO SCH ×2 (08:29→20:40)
[2017-06-09] MEDS: MAGNESIUM OXIDE 400 MG TAB PO SCH ×2 (08:29→20:39)
[2017-06-09] MEDS: PANTOprazole SOD 40 MG TAB PO SCH (08:29)
[2017-06-09] MEDS: FERROUS SULFATE 325 MG TAB PO SCH (08:29)
[2017-06-09] MEDS: ASPIRIN 81 MG ECTAB PO SCH (08:29)
[2017-06-09] MEDS: POTASSIUM CHLORIDE 10 MEQ TABCR PO SCH ×2 (08:29→20:40)
[2017-06-09] MEDS: METHYLPREDNISOLONE IV 40 MG in SYRINGE 0 ML IV SCH ×2 (08:30→20:38)
[2017-06-09] MEDS: FUROSEMIDE INJ 40 MG in SYRINGE 0 ML IV SCH (08:30)
[2017-06-09] MEDS: LOSARTAN POTASSIUM 50 MG TAB PO SCH (08:30)
[2017-06-09] MEDS: HEPARIN SOD 5000 UNIT/0.5 ML CARP SQ SCH ×2 (08:31→20:48)
[2017-06-09] MEDS: LEVOFLOXACIN 500 MG TAB PO SCH (10:43)
--- NOTE | 2017-06-09 14:22 | PULMONARY PROGRESS NOTE ---
DATE: 06/09/2017 TIME: 2:05 p.m. SUBJECTIVE: The patient is finally feeling a little better. She is not as congested or short of breath. She is not bringing up any phlegm. OBJECTIVE: GENERAL: The patient looked more at ease. She is very hard of hearing. VITAL SIGNS: Temperature was 36.7. HEART: Rate was 73 per minute. The rhythm was regular. An occasional extra systole was heard. Blood pressure was 154/82. LUNGS: The lung an still had rales and rhonchi bilaterally, but they were less. Saturation was 94% on 5 liters. EXTREMITIES: Showed no edema. LABORATORY DATA: White count today is 8.42. Hemoglobin 15.1. Platelets are 229,000. Electrolytes show sodium 139, potassium 4.6, chloride 100, bicarbonate 33. The BUN is 41 with a creatinine of 1.1. IMPRESSIONS: 1. Acute asthmatic bronchitis -- improving. 2. Congestive heart failure. 3. Chronic edema -- improving. COMMENTS AND RECOMMENDATIONS: The patient told me she had lost 20 pounds since in the hospital. I am unable to confirm that. Her weight was 88 kilograms on June 05 and today, it is 85.4 kilograms. There is, however, improvement in the edema on exam. Her lungs are starting to sound a little better and she is coughing less. If tomorrow she continues to improve, we may be able to change the steroids to oral. We would continue the levofloxacin. She is still on IV Lasix. I will defer this to the hospitalist team. We would continue with her nebulizer treatments.
--- NOTE | 2017-06-09 14:28 | Cardiology Follow-Up ---
Subjective General Date of Service: Jun 09, 2017. Chief Complaint: follow-up shortness of breath, cough, hypoxia Pt evaluation today including: conversation w/ patient, physical exam History of Present Illness The patient is a 72 year old female seen in follow up. Patient c/o fatigue. Wheezing improved. Allergies Coded Allergies: Erythromycin (Verified Adverse Reaction, Unknown, GI UPSET AND CRAMPING, ) Tetracycline (Verified Adverse Reaction, Unknown, GI UPSET, 06/05/17) Social History Smoking Status: Never Smoker Hx Tobacco Use In Past Year?: No Hx Alcohol Use - Type And Amou: Yes (6 DRINKS PER WEEK- beer) Hx Substance Use - Type And Am: No Problem List Medical Problems: (1) Acute on chronic respiratory failure with hypoxia and hypercapnia Status: Acute (2) COPD with exacerbation Status: Acute (3) Hypercapnic respiratory failure Status: Acute (4) Hypoxic Status: Acute Physical Exam Vital Signs Last Vital Signs Documentation Date Time Temp Pulse Resp B/P (MAP) Pulse Ox O2 Delivery O2 Flow Rate FiO2 06/09/17 14:14 77 16 94 Nasal Cannula 2.0 06/09/17 12:01 36.7 154/82 (106) 06/08/17 13:01 40 Physical Exam Constitutional: Level of Distress: NAD Head: normocephalic Neck: supple Lungs: Auscultation: no rales/crackles, expiratory wheezing Cardiovascular: Heart Auscultation: RRR, II/ CHAN Musculoskeletal: normal Extremities: edema (trace b/l edema) Neurologic: Gait & Station: pertinent finding (no focal deficits) Assessment and Plan Assessment and Plan Impression: 72-year-old female 1. Acute bronchitis 2. Underlying severe prosthetic aortic valve stenosis Plan: Continue supportive care for bronchitis. Clinically much improved compared to when I saw her on 06/07. OK to continue IV diuretics to keep I/ Os even to prevent volume overload with administration of IV medications. Workup for S-AVR vs T-AVR already underway as outpt. Laboratory Results Last 24 Hours Test 06/09/17 06:36 White Blood Count 8.42 K/uL Red Blood Count 4.85 M/uL Hemoglobin 15.1 g/dL Hematocrit 46.7 % Mean Corpuscular Volume 96.3 fL Mean Corpuscular Hemoglobin 31.1 pg Mean Corpuscular Hemoglobin Concent 32.3 g/dl Platelet Count 229 K/uL Mean Platelet Volume 10.2 fL Neutrophils (%) (Auto) 82.2 % Lymphocytes (%) (Auto) 9.9 % Monocytes (%) (Auto) 7.0 % Eosinophils (%) (Auto) 0.0 % Basophils (%) (Auto) 0.1 % Neutrophils # (Auto) 6.92 K/uL Lymphocytes # (Auto) 0.83 K/uL Monocytes # (Auto) 0.59 K/uL Eosinophils # (Auto) 0.00 K/uL Basophils # (Auto) 0.01 K/uL RDW Standard Deviation 46.8 fL RDW Coefficient of Variation 13.2 % Immature Granulocyte % (Auto) 0.8 % Immature Granulocyte # (Auto) 0.07 K/uL Sodium Level 139 mmol/L Potassium Level 4.6 mmol/L Chloride Level 100 mmol/L Carbon Dioxide Level 33 mmol/L Anion Gap 6.0 mmol/L Blood Urea Nitrogen 41 mg/dl Creatinine 1.10 mg/dl Est Creatinine Clear Calc Drug Dose 44.5 ml/min Estimated GFR () 57.3 Estimated GFR (Non- 49.4 BUN/Creatinine Ratio 36.9 Random Glucose 179 mg/dl Calcium Level 8.9 mg/dl Magnesium Level 2.7 mg/dl
--- NOTE | 2017-06-09 16:12 | Progress Note ---
Internal Med Progress Note Date of Service: Jun 09, 2017. Provider Documentation: SUBJECTIVE: resting comfortably hard to hear sob and cough improving feeling better thinks getting better OBJECTIVE: Vital Signs-as noted below Exam: General-alert and oriented. Not in distress ENT-Normal hearing Neck-no neck masses Lungs-cta b/l b/l mild wheezing-improving no crackles Heart-S1 and S2 heard regular rate and rhythm, no murmurs Abdomen-soft bowel sounds present no tenderness no distension Extremities-lower extremity edema present no erythema Neuro-alert and awake moves extremities Lab data as noted below. ASSESSMENT & PLAN: ACUTE RESPIRATORY FAILURE acute asthmatic bronchitis acute diastolic chf secondary to valvular heart disease initially required bipap two step prior to discharge stable Acute asthmatic bronchitis currently on iv solumedrol, Levaquin and nebs pulmonary on board appreciate inputs slow improvement iv steroids 40mg bid currently will monitor Acute diastolic CHF secondary to on iv Lasix 40mg daily appreciate cardiology inputs plan for out patient workup for . continue same for now stable CAD/HTN continue metoprolol, ASA, losartan no complaints CKD III Cr 1.09 (~baseline 1.1) cr 1.1 today will monitor labs on Lasix HYPOTHYROIDISM TSH Normal On levothyroxine DVT PROPHYLAXIS heparin SQ DISPOSITION Monitor in tele pt/ot to be determined DNR/DNI as per admission. Vital Signs: Date Time Temp Pulse Resp B/P (MAP) Pulse Ox O2 Delivery O2 Flow Rate FiO2 06/09/17 14:59 36.2 80 18 144/85 (104) 91 Nasal Cannula 5.0 06/09/17 14:14 77 16 94 Nasal Cannula 2.0 06/09/17 12:30 Nasal Cannula 5.0 06/09/17 12:01 36.7 73 16 154/82 (106) 94 Nasal Cannula 5.0 06/09/17 08:45 Nasal Cannula 5.0 06/09/17 07:29 77 16 94 Nasal Cannula 2.0 06/09/17 07:17 36.5 70 16 169/88 (115) 06/09/17 04:00 Nasal Cannula 5.0 06/09/17 03:42 36.7 75 15 165/84 (111) 92 Nasal Cannula 5.0 06/09/17 02:24 71 16 92 Nasal Cannula 2.0 06/09/17 00:00 Nasal Cannula 2.0 06/08/17 23:08 36.4 77 18 160/84 (109) 93 Nasal Cannula 2.0 06/08/17 20:30 84 125/64 (84) 06/08/17 20:06 88 16 91 Nasal Cannula 2.0 06/08/17 20:00 Nasal Cannula 2.0 06/08/17 19:34 36.5 68 18 135/70 (91) 91 Nasal Cannula 2.0 Lab Results: Results Past 24 Hours Test 06/09/17 06:36 Range/Units White Blood Count 8.42 4.8-10.8 K/uL Red Blood Count 4.85 4.2-5.4 M/uL Hemoglobin 15.1 12.0-16.0 g/dL Hematocrit 46.7 37-47 % Mean Corpuscular Volume 96.3 80-100 fL Mean Corpuscular Hemoglobin 31.1 25-34 pg Mean Corpuscular Hemoglobin Concent 32.3 32-36 g/dl Platelet Count 229 130-400 K/uL Mean Platelet Volume 10.2 7.4-10.4 fL Neutrophils (%) (Auto) 82.2 % Lymphocytes (%) (Auto) 9.9 % Monocytes (%) (Auto) 7.0 % Eosinophils (%) (Auto) 0.0 % Basophils (%) (Auto) 0.1 % Neutrophils # (Auto) 6.92 1.4-6.5 K/uL Lymphocytes # (Auto) 0.83 1.2-3.4 K/uL Monocytes # (Auto) 0.59 0.11-0.59 K/uL Eosinophils # (Auto) 0.00 0-0.5 K/uL Basophils # (Auto) 0.01 0-0.2 K/uL RDW Standard Deviation 46.8 36.4-46.3 fL RDW Coefficient of Variation 13.2 11.5-14.5 % Immature Granulocyte % (Auto) 0.8 % Immature Granulocyte # (Auto) 0.07 0.00-0.02 K/uL Sodium Level 139 136-145 mmol/L Potassium Level 4.6 3.5-5.1 mmol/L Chloride Level 100 98-107 mmol/L Carbon Dioxide Level 33 21-32 mmol/L Anion Gap 6.0 3-11 mmol/L Blood Urea Nitrogen 41 7-18 mg/dl Creatinine 1.10 0.60-1.20 mg/dl Est Creatinine Clear Calc Drug Dose 44.5 ml/min Estimated GFR () 57.3 Estimated GFR (Non- 49.4 BUN/Creatinine Ratio 36.9 10-20 Random Glucose 179 70-99 mg/dl Calcium Level 8.9 8.5-10.1 mg/dl Magnesium Level 2.7 1.8-2.4 mg/dl
[2017-06-09] MEDS: SIMVASTATIN 40 MG TAB PO SCH (20:39)
[2017-06-09] MEDS ORDERED: NURSING DECISION MEDICATION ORDER SCH (23:00)
[2017-06-09] MEDS ORDERED: SODIUM CHLORIDE 0.65% NA SOLN 45 ML (OCEAN) PRN (23:30)
[2017-06-10] VITALS (10 sets, daily range): BP systolic 130–173; BP diastolic 76–99; PULSE 58–90; TEMP 36.4–36.8; O2SAT 90–97
[2017-06-10] MEDS: LEVALBUTEROL 1.25MG/0.5ML NEB INH SCH ×2 (02:37→07:32)
[2017-06-10] MEDS: IPRATROPIUM BROMIDE NEB SOLN 0.02% 2.5 ML VIAL INH SCH ×2 (02:37→07:32)
[2017-06-10] MEDS: LEVOTHYROXINE 75 MCG TAB PO SCH (06:07)
[2017-06-10 06:22] LABS: BASO % 0.1 %; BASO ABS # 0.01 K/uL (0-0.2); HEMOGLOBIN 15.9 g/dL (12.0-16.0); IG# 0.15 K/uL (0.00-0.02); LYMPH % 7.5 %; LYMPH ABS # 0.75 K/uL (1.2-3.4); MEAN CELL VOLUME 95.5 fL (80-100); MEAN CORPUSCULAR HGB CONC 32.4 g/dl (32-36); MEAN PLATELET VOLUME 10.2 fL (7.4-10.4); MONO % 8.6 %; MONO ABS # 0.87 K/uL (0.11-0.59); NEUT % 82.3 %; NEUT ABS # 8.28 K/uL (1.4-6.5); PLATELET COUNT 245 K/uL (130-400); RED CELL DISTRIBUTION WIDTH CV 13.1 % (11.5-14.5); RED CELL DISTRIBUTION WIDTH SD 46.1 fL (36.4-46.3); WHITE BLOOD COUNT 10.06 K/uL (4.8-10.8)
[2017-06-10 06:51] LABS: CALCIUM 9.4 mg/dl (8.5-10.1); CREATININE 1.08 mg/dl (0.60-1.20); POTASSIUM 4.6 mmol/L (3.5-5.1)
[2017-06-10] MEDS: FLUTICASONE/SALMETEROL 250/50 (ADVAIR) 14 PUFF/1 INHALER INH SCH ×2 (08:04→21:00)
[2017-06-10] MEDS: METHYLPREDNISOLONE IV 40 MG in SYRINGE 0 ML IV SCH ×2 (08:04→21:01)
[2017-06-10] MEDS: CEROVITE ADV FORMULA TAB PO SCH (08:05)
[2017-06-10] MEDS: ASCORBIC ACID 500 MG TAB PO SCH (08:05)
[2017-06-10] MEDS: POTASSIUM CHLORIDE 10 MEQ TABCR PO SCH ×2 (08:05→21:02)
[2017-06-10] MEDS: CETIRIZINE HCL 10 MG TAB PO SCH (08:05)
[2017-06-10] MEDS: MAGNESIUM OXIDE 400 MG TAB PO SCH ×2 (08:05→21:02)
[2017-06-10] MEDS: CYANOCOBALAMIN 500 MCG TAB (VIT B-12) PO SCH (08:05)
[2017-06-10] MEDS: PANTOprazole SOD 40 MG TAB PO SCH (08:06)
[2017-06-10] MEDS: FERROUS SULFATE 325 MG TAB PO SCH (08:06)
[2017-06-10] MEDS: ASPIRIN 81 MG ECTAB PO SCH (08:06)
[2017-06-10] MEDS: METOPROLOL TARTRATE 50 MG TAB PO SCH ×2 (08:06→21:01)
[2017-06-10] MEDS: LOSARTAN POTASSIUM 50 MG TAB PO SCH (08:06)
[2017-06-10] MEDS: HEPARIN SOD 5000 UNIT/0.5 ML CARP SQ SCH ×2 (08:11→21:08)
[2017-06-10] MEDS: FUROSEMIDE INJ 40 MG in SYRINGE 0 ML IV SCH (08:26)
[2017-06-10] MEDS: LEVOFLOXACIN 500 MG TAB PO SCH (11:39)
[2017-06-10] MEDS: LEValbuterol HFA 15GM INHALER INH SCH ×3 (11:40→23:50)
[2017-06-10] MEDS: IPRATROPIUM BROMIDE HFA INHALER INH SCH ×3 (11:40→23:50)
--- NOTE | 2017-06-10 12:45 | PULMONARY PROGRESS NOTE ---
DATE: 06/10/2017 TIME: 12:25 p.m. SUBJECTIVE: The patient is feeling some better. She is not as tight in the chest. Her cough is somewhat less. She complains of severe dryness in the nose and mouth. This is despite the fact she is getting humidity into the oxygen. It appears that her nebulizer treatments were stopped earlier today. She was ordered levalbuterol and ipratropium inhalers. OBJECTIVE: GENERAL: The patient appeared comfortable at rest. VITAL SIGNS: Temperature was 36.7. Her heart rate was 81 per minute. The rhythm is regular. Blood pressure is 154/82. RESPIRATORY: Auscultation reveals moderate rales and rhonchi bilaterally. These have improved. They are still significant. Oxygen saturation was 90% on 2-liter nasal cannula. EXTREMITIES: Showed no edema. The edema she had been having has resolved. LABORATORY DATA: White count today was 10.06. Hemoglobin 15.9. Electrolytes show sodium 137, potassium 4.6, chloride 98, bicarbonate 34. BUN is 38 with a creatinine of 1.08. IMPRESSIONS: 1. Acute asthmatic bronchitis -- improving. 2. Congestive heart failure. 3. Chronic edema -- improved. RECOMMENDATIONS: I believe the steroids likely can be changed to oral tomorrow. I would start to ambulate her. Perhaps physical therapy would be of assistance. She will ultimately need to have a 2-step. Her respiratory status seems improved and stable. I will sign off for now, but would be happy to see her if requested.
--- NOTE | 2017-06-10 15:26 | Progress Note ---
Internal Med Progress Note Date of Service: Jun 10, 2017. Provider Documentation: SUBJECTIVE: resting comfortably hard to hear says her nose was congested last night but ok now sob ok has cough afebrile OBJECTIVE: Vital Signs-as noted below Exam: General-alert and oriented. Not in distress ENT-Normal hearing Neck-no neck masses Lungs-cta b/l b/l mild wheezing-improving no crackles Heart-S1 and S2 heard regular rate and rhythm, no murmurs Abdomen-soft bowel sounds present no tenderness no distension Extremities-lower extremity edema present no erythema Neuro-alert and awake moves extremities Lab data as noted below. ASSESSMENT & PLAN: ACUTE RESPIRATORY FAILURE acute asthmatic bronchitis acute diastolic chf secondary to valvular heart disease initially required bipap two step prior to discharge stable currently Acute asthmatic bronchitis currently on iv solumedrol, Levaquin and nebs pulmonary on board appreciate inputs slow improvement iv steroids 40mg bid currently nebs changed to inhalers will change steroids to po in am will monitor Acute diastolic CHF secondary to on iv Lasix 40mg daily appreciate cardiology inputs plan for out patient workup for . continue same for now will change Lasix to po in am stable CAD/HTN continue metoprolol, ASA, losartan no complaints CKD III Cr 1.09 (~baseline 1.1) cr 1.1 today will monitor labs on Lasix HYPOTHYROIDISM TSH Normal On levothyroxine DVT PROPHYLAXIS heparin SQ DISPOSITION Monitor in tele pt/ot possible d/c in 1-2 days DNR/DNI as per admission. Vital Signs: Date Time Temp Pulse Resp B/P (MAP) Pulse Ox O2 Delivery O2 Flow Rate FiO2 06/10/17 15:01 36.8 84 20 143/84 (103) 92 06/10/17 11:24 36.7 70 16 154/82 (106) 90 Nasal Cannula 2.0 06/10/17 08:30 Nasal Cannula 5.0 06/10/17 07:32 82 16 97 Nasal Cannula 3.5 06/10/17 07:13 36.4 58 20 173/99 (123) 91 06/10/17 04:00 Nasal Cannula 5.0 06/10/17 03:19 36.8 75 22 149/87 (107) 91 Nasal Cannula 5.0 Humidified Oxygen 06/10/17 02:37 77 16 96 Nasal Cannula 5.0 06/10/17 00:00 Nasal Cannula 5.0 06/10/17 00:00 36.5 90 20 149/78 (101) 95 Nasal Cannula 5.0 Humidified Oxygen 06/09/17 20:00 Nasal Cannula 5.0 06/09/17 19:55 36.3 71 18 144/70 (94) 92 5.0 06/09/17 18:49 79 16 96 Nasal Cannula 5.0 06/09/17 16:45 Nasal Cannula 5.0 Lab Results: Results Past 24 Hours Test 06/10/17 06:04 Range/Units White Blood Count 10.06 4.8-10.8 K/uL Red Blood Count 5.13 4.2-5.4 M/uL Hemoglobin 15.9 12.0-16.0 g/dL Hematocrit 49.0 37-47 % Mean Corpuscular Volume 95.5 80-100 fL Mean Corpuscular Hemoglobin 31.0 25-34 pg Mean Corpuscular Hemoglobin Concent 32.4 32-36 g/dl Platelet Count 245 130-400 K/uL Mean Platelet Volume 10.2 7.4-10.4 fL Neutrophils (%) (Auto) 82.3 % Lymphocytes (%) (Auto) 7.5 % Monocytes (%) (Auto) 8.6 % Eosinophils (%) (Auto) 0.0 % Basophils (%) (Auto) 0.1 % Neutrophils # (Auto) 8.28 1.4-6.5 K/uL Lymphocytes # (Auto) 0.75 1.2-3.4 K/uL Monocytes # (Auto) 0.87 0.11-0.59 K/uL Eosinophils # (Auto) 0.00 0-0.5 K/uL Basophils # (Auto) 0.01 0-0.2 K/uL RDW Standard Deviation 46.1 36.4-46.3 fL RDW Coefficient of Variation 13.1 11.5-14.5 % Immature Granulocyte % (Auto) 1.5 % Immature Granulocyte # (Auto) 0.15 0.00-0.02 K/uL Sodium Level 137 136-145 mmol/L Potassium Level 4.6 3.5-5.1 mmol/L Chloride Level 98 98-107 mmol/L Carbon Dioxide Level 34 21-32 mmol/L Anion Gap 5.0 3-11 mmol/L Blood Urea Nitrogen 38 7-18 mg/dl Creatinine 1.08 0.60-1.20 mg/dl Est Creatinine Clear Calc Drug Dose 45.0 ml/min Estimated GFR () 58.6 Estimated GFR (Non- 50.5 BUN/Creatinine Ratio 35.5 10-20 Random Glucose 212 70-99 mg/dl Calcium Level 9.4 8.5-10.1 mg/dl Magnesium Level 2.8 1.8-2.4 mg/dl
[2017-06-10] MEDS: SIMVASTATIN 40 MG TAB PO SCH (21:02)
[2017-06-11] VITALS (7 sets, daily range): BP systolic 118–155; BP diastolic 64–84; PULSE 54–94; TEMP 36.3–36.5; O2SAT 92–95
[2017-06-11] MEDS: IPRATROPIUM BROMIDE HFA INHALER INH SCH ×2 (06:09→17:27)
[2017-06-11] MEDS: LEValbuterol HFA 15GM INHALER INH SCH ×2 (06:09→17:26)
[2017-06-11] MEDS: LEVOTHYROXINE 75 MCG TAB PO SCH (06:10)
[2017-06-11] MEDS: METHYLPREDNISOLONE IV 40 MG in SYRINGE 0 ML IV SCH (08:40)
[2017-06-11] MEDS: FUROSEMIDE INJ 40 MG in SYRINGE 0 ML IV SCH (08:40)
[2017-06-11] MEDS: FLUTICASONE/SALMETEROL 250/50 (ADVAIR) 14 PUFF/1 INHALER INH SCH ×2 (08:40→21:13)
[2017-06-11] MEDS: MAGNESIUM OXIDE 400 MG TAB PO SCH ×2 (08:41→21:15)
[2017-06-11] MEDS: CETIRIZINE HCL 10 MG TAB PO SCH (08:41)
[2017-06-11] MEDS: PANTOprazole SOD 40 MG TAB PO SCH (08:41)
[2017-06-11] MEDS: CEROVITE ADV FORMULA TAB PO SCH (08:41)
[2017-06-11] MEDS: ASPIRIN 81 MG ECTAB PO SCH (08:41)
[2017-06-11] MEDS: CYANOCOBALAMIN 500 MCG TAB (VIT B-12) PO SCH (08:41)
[2017-06-11] MEDS: FERROUS SULFATE 325 MG TAB PO SCH (08:41)
[2017-06-11] MEDS: METOPROLOL TARTRATE 50 MG TAB PO SCH ×2 (08:42→21:15)
[2017-06-11] MEDS: LOSARTAN POTASSIUM 50 MG TAB PO SCH (08:42)
[2017-06-11] MEDS: ASCORBIC ACID 500 MG TAB PO SCH (08:42)
[2017-06-11] MEDS: POTASSIUM CHLORIDE 10 MEQ TABCR PO SCH ×2 (08:42→21:14)
[2017-06-11] MEDS: HEPARIN SOD 5000 UNIT/0.5 ML CARP SQ SCH ×2 (08:49→21:19)
[2017-06-11] MEDS: LEVOFLOXACIN 500 MG TAB PO SCH (11:00)
--- NOTE | 2017-06-11 14:54 | Cardiology Follow-Up ---
Subjective General Date of Service: Jun 11, 2017. Chief Complaint: follow-up shortness of breath, cough, hypoxia Pt evaluation today including: conversation w/ patient, physical exam History of Present Illness The patient is a 72 year old female seen in follow up. Patients cough and shortness of breath continue to improve.She went for a short walk with PT today. Allergies Coded Allergies: Erythromycin (Verified Adverse Reaction, Unknown, GI UPSET AND CRAMPING, ) Tetracycline (Verified Adverse Reaction, Unknown, GI UPSET, 06/05/17) Social History Smoking Status: Never Smoker Hx Tobacco Use In Past Year?: No Hx Alcohol Use - Type And Amou: Yes (6 DRINKS PER WEEK- beer) Hx Substance Use - Type And Am: No Problem List Medical Problems: (1) Acute on chronic respiratory failure with hypoxia and hypercapnia Status: Acute (2) COPD with exacerbation Status: Acute (3) Hypercapnic respiratory failure Status: Acute (4) Hypoxic Status: Acute Physical Exam Vital Signs Last Vital Signs Documentation Date Time Temp Pulse Resp B/P (MAP) Pulse Ox O2 Delivery O2 Flow Rate FiO2 06/11/17 12:55 79 93 06/11/17 12:00 Nasal Cannula 3.0 06/11/17 11:27 36.5 20 155/84 (107) 06/08/17 13:01 40 Physical Exam Constitutional: Level of Distress: NAD Head: normocephalic Neck: supple Lungs: Auscultation: no rales/crackles, pertinent finding (wheezing improving.) Cardiovascular: Heart Auscultation: RRR, II/ CHAN Musculoskeletal: normal Extremities: edema (trace b/l edema) Neurologic: Gait & Station: pertinent finding (no focal deficits) Assessment and Plan Assessment and Plan Impression: 72-year-old female 1. Acute bronchitis 2. Underlying severe prosthetic aortic valve stenosis Plan: Continue supportive care for bronchitis. Clinically much improved compared to when I saw her on 06/07. DC harris catheter. Transition to furosemide 40 mg PO daily. Workup for S-AVR vs T-AVR already underway as outpt.
--- NOTE | 2017-06-11 17:33 | Progress Note ---
Internal Med Progress Note Date of Service: Jun 11, 2017. Provider Documentation: SUBJECTIVE: resting comfortably hard to hear sob improving no pain eating ok afebrile no complaints OBJECTIVE: Vital Signs-as noted below Exam: General-alert and oriented. Not in distress ENT-Normal hearing Neck-no neck masses Lungs-cta b/l b/l mild wheezing-improved no crackles Heart-S1 and S2 heard regular rate and rhythm, no murmurs Abdomen-soft bowel sounds present no tenderness no distension Extremities-lower extremity edema present-improving no erythema Neuro-alert and awake moves extremities Lab data as noted below. ASSESSMENT & PLAN: ACUTE RESPIRATORY FAILURE acute asthmatic bronchitis acute diastolic chf secondary to valvular heart disease initially required bipap two step prior to discharge stable currently possible d/c in am Acute asthmatic bronchitis currently on iv solumedrol, Levaquin and nebs pulmonary on board appreciate inputs slow improvement iv steroids 40mg bid currently nebs changed to inhalers will change steroids to po in am stable Acute diastolic CHF secondary to on iv Lasix 40mg daily appreciate cardiology inputs plan for out patient workup for . continue same for now will change Lasix to po in am stable CAD/HTN continue metoprolol, ASA, losartan no complaints CKD III Cr 1.09 (~baseline 1.1) cr 1.1 today will monitor labs on Lasix HYPOTHYROIDISM TSH Normal On levothyroxine DVT PROPHYLAXIS heparin SQ DISPOSITION Monitor in tele pt/ot possible d/c in am DNR/DNI as per admission. Vital Signs: Date Time Temp Pulse Resp B/P (MAP) Pulse Ox O2 Delivery O2 Flow Rate FiO2 06/11/17 16:08 36.4 87 18 122/77 (92) 93 Nasal Cannula 3.0 06/11/17 16:00 Nasal Cannula 3.0 06/11/17 12:55 79 93 06/11/17 12:00 Nasal Cannula 3.0 06/11/17 11:27 36.5 78 20 155/84 (107) 92 Nasal Cannula 3.0 06/11/17 08:16 36.4 94 22 130/70 (90) 94 Nasal Cannula 3.0 06/11/17 08:00 Nasal Cannula 3.0 06/11/17 04:00 Nasal Cannula 3.5 06/11/17 03:30 36.4 68 18 155/76 (102) 95 Nasal Cannula 3.5 06/11/17 00:00 Nasal Cannula 3.5 06/10/17 23:24 36.4 78 18 145/86 (105) 92 5.0 06/10/17 20:59 81 130/82 (98) 06/10/17 20:00 Nasal Cannula 3.5 06/10/17 18:45 36.5 80 20 130/76 (94) 93
[2017-06-11] MEDS: SIMVASTATIN 40 MG TAB PO SCH (21:15)
[2017-06-12] MEDS: LEValbuterol HFA 15GM INHALER INH SCH ×3 (00:30→08:34)
[2017-06-12] MEDS: IPRATROPIUM BROMIDE HFA INHALER INH SCH ×3 (00:30→12:28)
[2017-06-12 04:00] VITALS: BP 122/79; PULSE 62; TEMP 36.3; O2SAT 91
[2017-06-12] MEDS: LEVOTHYROXINE 75 MCG TAB PO SCH (06:21)
[2017-06-12 08:00] VITALS: BP 136/82; PULSE 80; TEMP 36.3; O2SAT 95
[2017-06-12 08:15] VITALS: O2SAT 93
[2017-06-12] MEDS: PANTOprazole SOD 40 MG TAB PO SCH (08:31)
[2017-06-12] MEDS: LOSARTAN POTASSIUM 50 MG TAB PO SCH (08:32)
[2017-06-12] MEDS: ASCORBIC ACID 500 MG TAB PO SCH (08:32)
[2017-06-12] MEDS: POTASSIUM CHLORIDE 10 MEQ TABCR PO SCH (08:32)
[2017-06-12] MEDS: MAGNESIUM OXIDE 400 MG TAB PO SCH (08:32)
[2017-06-12] MEDS: CYANOCOBALAMIN 500 MCG TAB (VIT B-12) PO SCH (08:32)
[2017-06-12] MEDS: METOPROLOL TARTRATE 50 MG TAB PO SCH (08:33)
[2017-06-12] MEDS: FLUTICASONE/SALMETEROL 250/50 (ADVAIR) 14 PUFF/1 INHALER INH SCH (08:34)
[2017-06-12] MEDS ORDERED: FUROSEMIDE 40 MG TAB PO SCH (09:00)
[2017-06-12] MEDS: ASPIRIN 81 MG ECTAB PO SCH (09:09)
[2017-06-12] MEDS: CETIRIZINE HCL 10 MG TAB PO SCH (09:09)
[2017-06-12] MEDS: FERROUS SULFATE 325 MG TAB PO SCH (09:09)
[2017-06-12] MEDS: HEPARIN SOD 5000 UNIT/0.5 ML CARP SQ SCH (09:12)
[2017-06-12] MEDS: CEROVITE ADV FORMULA TAB PO SCH (09:27)
[2017-06-12] MEDS ORDERED: COUGH DROP (SUGAR FREE) LOZ 24 LOZ/1 BOX LOZ ONE (11:17)
[2017-06-12] MEDS ORDERED: PRED10TA PO (11:28)
[2017-06-12] MEDS ORDERED: IPRA1AER2 INH (11:28)
[2017-06-12] MEDS ORDERED: LSX40 PO (11:28)
[2017-06-12] MEDS ORDERED: NURSING VERBAL MED ORDER ONE (11:30)
--- NOTE | 2017-06-12 11:31 | Discharge Instructions ---
Discharge Instructions Date of Service Jun 12, 2017. Admission Reason for Admission: Respiratory Failure Discharge Discharge Diagnosis / Problem: ACUTE RESP FAILURE, COPD EX, ACUTE CHF Discharge Goals Goal(s): Decrease discomfort, Improve function Activity Recommendations Activity Limitations: resume your previous activity . Instructions / Follow-Up Instructions / Follow-Up FOLLOWUP WITH FAMILY DOCTOR ON Jun AT 2:45PM. FOLLOWUP WITH PULMONARY AND CARDIOLOGY IN 2- 3 WEEKS. CUT BACK ON POTASSIUM AND MAGNESIUM SUPPLEMENTS ( CHANGED TO ONCE DAILY DOSE) LEVELS ARE ON HIGHER END. LAB: BMP WITH MG LEVELS IN ONE WEEK AND FOLLOW RESULTS WITH FAMILY DOCTOR. Call your Primary Care doctor if any of the following symptoms or problems start or get worse: * Shortness of breath or difficulty breathing * Wake up at night short of breath * Chest pain * Cough * Swelling of your hands, feet, or legs * More fatigued or tired with your normal activity * Palpitations - sudden fast heart beats WEIGHT * Weigh yourself every morning after using the bathroom. * Use the same scale. * Wear the same amount of clothing. * Write your weight down on a chart. * Call your Primary Care doctor if you gain more than 2-3 pounds in 1-2 days. MEDICATIONS * Use this discharge instruction sheet for medication instructions. * Take your medications at the time your doctor ordered. * Do not skip a dose of your medicines. * If you miss a dose of medicine, take it as soon as possible, but DO NOT DOUBLE A DOSE. * Read your medicine information when you get home. * Know all of the side effects of your medicine. If in doubt, ask your pharmacist * Call your Primary Care doctor's office if you have any side effects. * Be sure all of your doctors know what medicine and herbs you take (including cold, flu, and herbal medicine). Take the following with you to your follow-up doctor appointments: * Weight Chart * Medication List * List of questions Do not drink excessive alcohol, beer or wine. Current Hospital Diet Patient's current hospital diet: AHA Diet (Heart Healthy) Discharge Diet Recommended Diet: AHA Diet (Heart Healthy) Pending Studies Studies pending at discharge: no Medical Emergencies . Who to Call and When: Call 911 or go to the Emergency Room if: * If at any time you feel your situation is an emergency * You have tightness or pain in your chest that does not go away with rest or Nitroglycerin * You are very short of breath even with rest . Non-Emergent Contact Non-Emergency issues call your: Primary Care Provider . . "Provider Documentation" section prepared by Brennen Baker. . VTE Core Measure Inpt VTE Proph given/why not?: Unfractionated heparin SQ
[2017-06-12 11:36] VITALS: BP 136/82; PULSE 80; TEMP 36.3; O2SAT 93
[2017-06-12] MEDS ORDERED: NURSING DECISION MEDICATION ORDER SCH (12:00)
--- NOTE | 2017-06-12 12:08 | Progress Note ---
Internal Med Progress Note Date of Service: Jun 12, 2017. Provider Documentation: SUBJECTIVE: resting comfortably hard to hear cough much improved passed two step afebrile ok to go home OBJECTIVE: Vital Signs-as noted below Exam: General-alert and oriented. Not in distress ENT-Normal hearing Neck-no neck masses Lungs-cta b/l b/l mild wheezing-improved no crackles Heart-S1 and S2 heard regular rate and rhythm, no murmurs Abdomen-soft bowel sounds present no tenderness no distension Extremities-lower extremity edema present-improving no erythema Neuro-alert and awake moves extremities Lab data as noted below. ASSESSMENT & PLAN: ACUTE RESPIRATORY FAILURE acute asthmatic bronchitis acute diastolic chf secondary to valvular heart disease initially required bipap two step prior to discharge-passed two step stable Acute asthmatic bronchitis currently on iv solumedrol, Levaquin and nebs pulmonary on board appreciate inputs slow improvement discharged on steroid taper, combivent and home inhalers f/u with pulmonary Acute diastolic CHF secondary to on iv Lasix 40mg daily appreciate cardiology inputs plan for out patient workup for . continue same for now discharged on lasix 40mg daily f/u with pcp and cardiology CAD/HTN continue metoprolol, ASA, losartan no complaints CKD III Cr 1.09 (~baseline 1.1) cr 1.1 today will monitor labs on Lasix HYPOTHYROIDISM TSH Normal On levothyroxine discharged home with home health Vital Signs: Date Time Temp Pulse Resp B/P (MAP) Pulse Ox O2 Delivery O2 Flow Rate FiO2 06/12/17 11:36 36.3 80 16 93 Mask 06/12/17 08:15 93 Nasal Cannula 2.0 06/12/17 08:00 95 Nasal Cannula 3.0 06/12/17 08:00 36.3 80 16 136/82 (100) 95 Nasal Cannula 3.0 06/12/17 08:00 95 Nasal Cannula 3.0 06/12/17 04:00 Nasal Cannula 3.0 06/12/17 04:00 36.3 62 16 122/79 (93) 91 Nasal Cannula 3.0 06/12/17 00:00 Nasal Cannula 3.0 06/11/17 23:56 36.4 54 16 121/68 (85) 93 Nasal Cannula 2.0 06/11/17 20:00 Nasal Cannula 3.0 06/11/17 19:58 36.3 78 18 118/64 (82) 93 Room Air 06/11/17 16:08 36.4 87 18 122/77 (92) 93 Nasal Cannula 3.0 06/11/17 16:00 Nasal Cannula 3.0 06/11/17 12:55 79 93 06/11/17 12:00 Nasal Cannula 3.0
--- NOTE | 2017-06-12 12:28 | Discharge Summary ---
Discharge Summary Date of Service Jun 12, 2017. Discharge Summary Admission Date: Jun 05, 2017 at 15:39 Discharge Date: Jun 12, 2017 Discharge Disposition: Home with services Principal Diagnosis: acute respiratory failure copd ex acute diastolic chf Secondary Diagnoses/Problems: (1) Arthritis of right hip Status: Chronic (2) Asthma Status: Chronic (3) CAD (coronary artery disease) Status: Chronic (4) GERD (gastroesophageal reflux disease) Status: Chronic (5) HLD (hyperlipidemia) Status: Chronic (6) HTN (hypertension) Status: Chronic (7) Hypothyroidism Status: Chronic Procedures: cxr: Mild nonspecific interstitial thickening. No evidence of focal pulmonary consolidation Consultations: PULMONARY CARDIOLOGY Medication Reconciliation New Medications: Ipratropium-Albuterol (Combivent Respimat) 1 Aer Aer 1 PUFFS INH QID, #1 INH 2 Refills Prednisone Tab (Prednisone) 10 Mg Tab 40 MG PO UD, #21 TAB PREDNISONE 40MG PO DAILY X 2 DAYS THEN PREDNISONE 30MG PO DAILY X 2 DAYS THEN PREDNISONE 20MG PO DAILY X 2 DAYS THEN PREDNISONE 10MG PO DAILY X 2 DAYS THEN PREDNISONE 5MG PO DAILY X 2 DAYS THEN STOP. Furosemide (Furosemide) 40 Mg Tab 40 MG PO QAM, #30 TAB 2 Refills Continued Medications: Albuterol Hfa (Ventolin Hfa) 200 Puffs/54491 Mcg Aers 2 PUFFS INH Q4 PRN for Wheezing Ascorbic Acid (Ascorbic Acid) 500 Mg Tab 500 MG PO DAILY Aspirin (Aspirin Ec) 81 Mg Tab 81 MG PO DAILY Cetirizine (Zyrtec) 10 Mg Tab 10 MG PO QAM, TAB Cyanocobalamin (Vitamin B-12) 1,000 Mcg Tab 1000 MCG PO DAILY Ferrous Sulfate (Kp Ferrous Sulfate) 325 Mg Tab 325 MG PO DAILY WITH BREAKFAST Fluticasone Prop/Salmeterol (Advair Diskus 250-50 Mcg/Dose) 14 Puff/1 Inhaler Aerp 1 PUFF INH BID Levothyroxine Sodium (Synthroid) 75 Mcg Tab 1 TAB PO DAILY Losartan Potassium (Cozaar) 100 Mg Tab 100 MG PO QAM, TAB Magnesium Oxide (Magnesium-Oxide) 400 Mg Tab 1 TAB PO PM Metoprolol Tartrate (Lopressor) (Lopressor) 50 Mg Tab 50 MG PO BID Multiple Vitamins W/ Minerals (OcuvFanHero Eye Health Formul) 1 Cap Cap 1 CAP PO DAILY Nitroglycerin (Nitrostat) 0.4 Mg Tab 0.4 MG UT PRN, BTL Omeprazole (Prilosec) 20 Mg Capcr 20 MG PO QAM, CAP Potassium Chloride (Potassium Chloride Er) 10 Meq Tab 2 TAB PO DAILY for 90 Days, #180 TAB 1 Refill Simvastatin (Zocor) 40 Mg Tab 40 MG PO QPM, TAB Discontinued Medications: Amoxicillin (Amoxil) 500 Mg Cap 500 MG PO TID, #21 CAP Furosemide (Lasix) 40 Mg Tab 20-40 MG PO DAILY PRN for FLUID RETENTION Magnesium Oxide (Mag-Ox) 400 Mg Tab 800 MG PO DAILY Multiple Vitamins W/ Minerals (Centrum Silver 50+Women) 1 Tab Tab 1 TAB PO DAILY Potassium Chloride (Micro-K Ext Rel) 10 Meq Capcr 10 MEQ PO PM Prednisone (Prednisone) 20 Mg Tab 2 TAB PO DAILY X 5 DAYS (RX FILLED 06/01/17) Admission Information HPI (per Admitting provider): Pt is 72 y/o F with PMH HTN, COPD, CAD, NSTEMI s/p balloon angioplasty, s/p AVR, prosthetic aortic valve stenosis, CKD III, hypothyroidism presented to ER with c/o SOB. Pt seen at PCP and was started on prednisone and cough suppressant. She was seen at ER yesterday also and d/c home with amoxicillin. Returned today with worsening SOB. States productive yellow cough and SOB x 5 days. Doesn't think had fever. Does not use home oxygen. Pt states unable to use her albuterol at home secondary to SOB and inability to take in a deep breath. Pt reports LE edema worsening over several months with SOB with exertion. Following out pt with [facility] cardiology, nephrology. On lasix 40mg daily , however doesn't use regularly with her job. Hx prosthetic aortic valve stenosis and f/u with Dr Guerra for consideration TAVR. Denies fever/chills, diaphoresis, N/V/D/C, PEREZ, dizziness, syncope, vision changes, neck pain, CP, orthopnea, palpitations, sore throat, choking, otalgia, abdominal pain, paresthesias, extremity weakness, extremity edema, rashes, urinary symptoms. Hx echo on 04/06/17: EF: 60-65%, Grade II diastolic dysfunction. Aortic prosthesis systolic gradient abnormal suggesting obstruction. The interatrial septum bows toward R atrial consistent with high left atrial pressure. In ER T: 37.4, Pt hypoxic in 79% on RA increased to 93% on 5L NC and was placed on bipap, sats: 93-95%. pt initially hypertensive, after bipap placed BP stable. Pt given lasix 20mg IV, Levaquin 750mg IV, Solumedrol 125mg IV, hour long DuoNeb, mag sulfate 2 gm. WBC: 10.9. Negative troponin. BNP: 1837. CXR: no focal consolidation. Physical Exam (per Admitting): General Appearance: + obese, + pertinent finding (+mild respiratory distress , has Bipap on) Head: normocephalic, atraumatic Eyes: normal inspection, PERRL, EOMI, sclerae normal ENT: + pertinent finding (hard of hearing, mucous membranes moist) Neck: supple, no JVD, trachea midline Respiratory/Chest: chest non-tender, + respiratory distress (increased respirations), + decreased breath sounds, + rhonchi, + wheezing Cardiovascular: + tachycardia, + systolic murmur Abdomen/GI: normal bowel sounds, non tender, soft Extremities/Musculoskelatal: no calf tenderness, normal capillary refill, + pertinent finding (+2 pitting edema LE bilaterally) Neurologic/Psych: alert, normal mood/affect, oriented x 3 Skin: normal color, warm/dry Hospital Course ACUTE RESPIRATORY FAILURE acute asthmatic bronchitis acute diastolic chf secondary to valvular heart disease initially required bipap two step prior to discharge-passed two step stable Acute asthmatic bronchitis currently on iv solumedrol, Levaquin and nebs pulmonary on board appreciate inputs slow improvement discharged on steroid taper, combivent and home inhalers f/u with pulmonary Acute diastolic CHF secondary to on iv Lasix 40mg daily appreciate cardiology inputs plan for out patient workup for . continue same for now discharged on lasix 40mg daily f/u with pcp and cardiology CAD/HTN continue metoprolol, ASA, losartan no complaints CKD III Cr 1.09 (~baseline 1.1) cr 1.1 today will monitor labs on Lasix HYPOTHYROIDISM TSH Normal On levothyroxine discharged home with home health Total time spent on discharge = 35MINUTES This includes examination of the patient, discharge planning, medication reconciliation, and communication with other providers. Discharge Instructions Discharge Instructions Date of Service Jun 12, 2017. Admission Reason for Admission: Respiratory Failure Discharge Discharge Diagnosis / Problem: ACUTE RESP FAILURE, COPD EX, ACUTE CHF Discharge Goals Goal(s): Decrease discomfort, Improve function Activity Recommendations Activity Limitations: resume your previous activity . Instructions / Follow-Up Instructions / Follow-Up FOLLOWUP WITH FAMILY DOCTOR ON Jun AT 2:45PM. FOLLOWUP WITH PULMONARY AND CARDIOLOGY IN 2- 3 WEEKS. CUT BACK ON POTASSIUM AND MAGNESIUM SUPPLEMENTS ( CHANGED TO ONCE DAILY DOSE) LEVELS ARE ON HIGHER END. LAB: BMP WITH MG LEVELS IN ONE WEEK AND FOLLOW RESULTS WITH FAMILY DOCTOR. Call your Primary Care doctor if any of the following symptoms or problems start or get worse: * Shortness of breath or difficulty breathing * Wake up at night short of breath * Chest pain * Cough * Swelling of your hands, feet, or legs * More fatigued or tired with your normal activity * Palpitations - sudden fast heart beats WEIGHT * Weigh yourself every morning after using the bathroom. * Use the same scale. * Wear the same amount of clothing. * Write your weight down on a chart. * Call your Primary Care doctor if you gain more than 2-3 pounds in 1-2 days. MEDICATIONS * Use this discharge instruction sheet for medication instructions. * Take your medications at the time your doctor ordered. * Do not skip a dose of your medicines. * If you miss a dose of medicine, take it as soon as possible, but DO NOT DOUBLE A DOSE. * Read your medicine information when you get home. * Know all of the side effects of your medicine. If in doubt, ask your pharmacist * Call your Primary Care doctor's office if you have any side effects. * Be sure all of your doctors know what medicine and herbs you take (including cold, flu, and herbal medicine). Take the following with you to your follow-up doctor appointments: * Weight Chart * Medication List * List of questions Do not drink excessive alcohol, beer or wine. Current Hospital Diet Patient's current hospital diet: AHA Diet (Heart Healthy) Discharge Diet Recommended Diet: AHA Diet (Heart Healthy) Pending Studies Studies pending at discharge: no Medical Emergencies . Who to Call and When: Call 911 or go to the Emergency Room if: * If at any time you feel your situation is an emergency * You have tightness or pain in your chest that does not go away with rest or Nitroglycerin * You are very short of breath even with rest . Non-Emergent Contact Non-Emergency issues call your: Primary Care Provider . . "Provider Documentation" section prepared by Brennen Baker. . VTE Core Measure Inpt VTE Proph given/why not?: Unfractionated heparin SQ
[2017-06-12] MEDS ORDERED: COUGH DROP (SUGAR FREE) LOZ 24 LOZ/1 BOX LOZ PRN (14:00)
== END 2017-06-12 14:35 | disposition home or self-care (01) | DRG 314 ==
LOC: C.EDB 12:12 → C.2T 15:39 → ENRESERV 16:34 → C.MED 06-07 18:38
PROVIDERS: ADMIT Family Medicine; ATTEND Internal Medicine
DX: T82.857A Stenosis of other cardiac prosthetic devices, implants and grafts, initial encounter (principal); I50.31 Acute diastolic (congestive) heart failure; J96.21 Acute and chronic respiratory failure with hypoxia; J96.22 Acute and chronic respiratory failure with hypercapnia; J44.1 Chronic obstructive pulmonary disease with (acute) exacerbation; J44.0 Chronic obstructive pulmonary disease with (acute) lower respiratory infection; I13.0 Hypertensive heart and chronic kidney disease with heart failure and stage 1 through stage 4 chronic kidney disease, or unspecified chronic kidney disease; I35.0 Nonrheumatic aortic (valve) stenosis; J20.9 Acute bronchitis, unspecified; Z66 Do not resuscitate; J45.909 Unspecified asthma, uncomplicated; I25.10 Atherosclerotic heart disease of native coronary artery without angina pectoris; I25.2 Old myocardial infarction; N18.3 Chronic kidney disease, stage 3 (moderate); E03.9 Hypothyroidism, unspecified; K21.9 Gastro-esophageal reflux disease without esophagitis; E78.5 Hyperlipidemia, unspecified; Z51.81 Encounter for therapeutic drug level monitoring; Z79.899 Other long term (current) drug therapy; Z79.82 Long term (current) use of aspirin; Z95.2 Presence of prosthetic heart valve; Z88.1 Allergy status to other antibiotic agents; Z82.49 Family history of ischemic heart disease and other diseases of the circulatory system; Z83.3 Family history of diabetes mellitus; Z80.42 Family history of malignant neoplasm of prostate; Y83.1 Surgical operation with implant of artificial internal device as the cause of abnormal reaction of the patient, or of later complication, without mention of misadventure at the time of the procedure

== ENCOUNTER 2017-08-07 21:34 | Emergency (ER) | payer OTHER ==
[~2017-08-07] VITALS: Ht 154.9 cm; Wt 85.0 kg
[~2017-08-07 21:34] MED LIST changes: -ADVIN25050 INH; -AMOX500C3 PO; +AMOX875T PO; -ASCO500T16 PO; -ASPI81TA28 PO; -CETI10TA84 PO; -CLC100X PO; -FRS/40 PO; +IPRA1AER2 INH; -LEVO75TA5 PO; +LSX40 PO; -MAGN400T6 PO; -MULT-1092 PO; -MULT1CAP14 PO; -POTA10CA28 PO; +PRED10TA PO; -PRED20TA PO; -[UNRECOGNIZED DRUG - CODE] PO
[2017-08-07 21:38] VITALS: TEMP 36.9; Ht 154.9 cm; Wt 85.0 kg
[2017-08-07 22:13] LABS: BASO % 0.4 %; BASO ABS # 0.03 K/uL (0-0.2); EOS % 6.7 %; EOS ABS # 0.56 K/uL (0-0.5); HEMATOCRIT 40.8 % (37-47); HEMOGLOBIN 13.8 g/dL (12.0-16.0); IG# 0.03 K/uL (0.00-0.02); LYMPH % 14.5 %; LYMPH ABS # 1.21 K/uL (1.2-3.4); MEAN CELL VOLUME 90.9 fL (80-100); MEAN CORPUSCULAR HEMOGLOBIN 30.7 pg (25-34); MEAN CORPUSCULAR HGB CONC 33.8 g/dl (32-36); MEAN PLATELET VOLUME 9.8 fL (7.4-10.4); MONO % 7.4 %; MONO ABS # 0.62 K/uL (0.11-0.59); NEUT % 70.6 %; NEUT ABS # 5.88 K/uL (1.4-6.5); PLATELET COUNT 248 K/uL (130-400); RED CELL DISTRIBUTION WIDTH CV 15.2 % (11.5-14.5); RED CELL DISTRIBUTION WIDTH SD 50.5 fL (36.4-46.3); WHITE BLOOD COUNT 8.33 K/uL (4.8-10.8)
[2017-08-07 22:15] VITALS: O2SAT 94
[2017-08-07] MEDS ORDERED: ALBUT/IPRATROP 3MG/0.5MG NEB 3 ML VIAL INH ONE (22:15)
--- NOTE | 2017-08-07 22:45 | DIAGNOSTIC IMAGING REPORT ---
CHEST ONE VIEW PORTABLE HISTORY: Atypical CHEST PAIN COMPARISON: Chest 06/08/2017. FINDINGS: No pneumothorax. No pleural effusions. Post anatomy changes. The heart remains mildly enlarged. Mild diffuse interstitial thickening has slightly progressed. There is a new 3.4 cm right suprahilar nodular density. This may be due to the overlying oxygen supply. IMPRESSION: 1. Mild diffuse interstitial thickening which is slightly progressed. This suggests developing pulmonary congestion. 2. There is a new 3.4 cm right suprahilar nodular density. This may be due to the overlying oxygen supply. Follow-up chest x-ray should be performed once the patient is stabilized to exclude a suprahilar nodule. Electronically signed by: Efraín Kwon M.D. 08/07/2017 10:44 PM Dictated Date/Time: 08/07/2017 10:41 PM
[2017-08-07 23:13] LABS: ALBUMIN 2.8 gm/dl (3.4-5.0); ALT/SGPT 12 U/L (12-78); AST/SGOT 10 U/L (15-37); BLOOD UREA NITROGEN 19 mg/dl (7-18); CALCIUM 8.8 mg/dl (8.5-10.1); CARBON DIOXIDE 30 mmol/L (21-32); CREATININE 0.98 mg/dl (0.60-1.20); GLUCOSE 120 mg/dl (70-99); LIPASE 200 U/L (73-393); POTASSIUM 3.4 mmol/L (3.5-5.1); SODIUM 141 mmol/L (136-145)
[2017-08-07 23:18] LABS: ALKALINE PHOSPHATASE 100 U/L (45-117); TOTAL PROTEIN 6.6 gm/dl (6.4-8.2)
[2017-08-07 23:28] LABS: INFLUENZA A PCR Neg for Influ A (NEG); INFLUENZA B PCR Neg for Influ B (NEG)
--- NOTE | 2017-08-07 23:30 | EMERGENCY ROOM VISIT NOTE ---
History Report prepared by Marcela: Kanchan Castro Under the Supervision of: Dr. Jon Pena M.D. First contact with patient: 21:47 Chief Complaint: SHORTNESS OF BREATH Stated Complaint: COUGHING, SOB History of Present Illness The patient is a 72 year old female who presents to the Emergency Room with complaints of persistent cough starting 2 months ago. The patient has been getting a prescription for antibiotics every 2 weeks to no significant relief of her cough. She last saw her PCP 4 days ago and was started on a new antibiotic. She is coughing up white sputum. She has tried using an inhaler to no significant relief. She also reports nasal congestion and SOB. She feels like her throat is swollen. She has been lightheaded. Her leg swelling is worse than normal. She denies any fever, chills, nausea, vomiting, diarrhea, or urinary symptoms. She is to have a heart valve replacement in the future. She is on a water pill. She is not on any blood thinners. Source of History: patient Onset: 2 months ago Position: other (breathing) Quality: other (cough) Timing: other (persistent) Modifying Factors (Relieving): other (no relief with antibiotics, inhaler) Associated Symptoms: + SOB, No fevers, No chills, No nausea, No vomiting, No diarrhea, No urinary symptoms Note: Pt reports nasal congestion, throat swelling, lightheadedness, leg swelling. Review of Systems See HPI for pertinent positives and negatives. A total of ten systems were reviewed and were otherwise negative. Past Medical & Surgical Medical Problems: (1) Arthritis of right hip (2) Asthma (3) CAD (coronary artery disease) (4) GERD (gastroesophageal reflux disease) (5) HLD (hyperlipidemia) (6) HTN (hypertension) (7) Hypothyroidism (8) Respiratory failure Surgical Problems: (1) H/O: hysterectomy (2) History of left heart catheterization (LHC) (3) History of right hip replacement (4) History of tonsillectomy and adenoidectomy (5) S/P AVR Family History Diabetes mellitus FH: cancer FH: heart disease Hypertension Social History Smoking Status: Never Smoker Alcohol Use: none Drug Use: none Marital Status: Housing Status: lives with significant other Occupation Status: unemployed Current/Historical Medications Scheduled Amlodipine (Norvasc), 5 MG PO DAILY Amoxicillin & Pot Clavulanate (Augmentin 875-125 mg), 1 TAB PO BID Ascorbic Acid (Ascorbic Acid), 500 MG PO DAILY Aspirin (Aspirin Ec), 81 MG PO DAILY Atorvastatin (Lipitor), 20 MG PO DAILY Cetirizine (Zyrtec), 10 MG PO QAM Cyanocobalamin (Vitamin B12), 1,000 MCG PO DAILY Ferrous Sulfate (Ferrous Sulfate), 325 MG PO QAM Fluticasone Prop/Salmeterol (Advair Diskus 250-50 Mcg/Dose), 1 PUFF INH BID Furosemide (Furosemide), 40 MG PO QAM Ipratropium-Albuterol (Combivent Respimat), 1 PUFFS INH QID Levofloxacin (Levaquin), 750 MG PO DAILY Levothyroxine Sodium (Synthroid), 1 TAB PO DAILY Magnesium Oxide (Magnesium-Oxide), 1 TAB PO PM Multiple Vitamins W/ Minerals ([employer] Formul), 1 CAP PO DAILY Omeprazole (Prilosec), 20 MG PO DAILY Potassium Chloride (Potassium Chloride Er), 2 TAB PO DAILY Prednisone (Prednisone), 3 TAB PO DAILY Scheduled PRN Albuterol Sulf (Albuterol Sulfate), 2.5 MG NEB Q4 PRN for SOB/Wheezing Docusate Sodium (Docusate Sodium), 1 CAP PO BID PRN for Constipation Nitroglycerin (Nitrostat), 0.4 MG UT UD PRN for Chest Pain Promethaz/Phenylephrin/Codeine (Promethazine Vc/Codeine), 5 ML PO Q6 PRN for Cough Allergies Coded Allergies: Erythromycin (Verified Adverse Reaction, Unknown, GI UPSET AND CRAMPING, ) Tetracycline (Verified Adverse Reaction, Unknown, GI UPSET, 06/05/17) Physical Exam Vital Signs Date Time Temp Pulse Resp B/P (MAP) Pulse Ox O2 Delivery O2 Flow Rate FiO2 08/07/17 23:58 18 122/73 91 08/07/17 23:45 98 19 08/07/17 23:31 125/79 08/07/17 23:15 95 19 98 08/07/17 23:01 129/79 08/07/17 22:45 94 15 99 08/07/17 22:15 94 Room Air 08/07/17 22:04 Room Air 4/3/18 21:58 90 08/07/17 21:38 36.9 93 20 152/88 92 Room Air Physical Exam GENERAL: Awake, alert, fatigued-appearing, in no distress HENT: Normocephalic, atraumatic. Dry mucous membranes, otherwise oropharynx unremarkable. EYES: Normal conjunctiva. Sclera non-icteric. NECK: Supple. No nuchal rigidity. FROM. No JVD. RESPIRATORY: Diminished breath sounds at the bases with scant wheezes. CARDIAC: Regular rate, normal rhythm. Extremities warm and well perfused. Pulses equal. ABDOMEN: Soft, non-distended. No tenderness to palpation. No rebound or guarding. No masses. RECTAL: Deferred. MUSCULOSKELETAL: Chest examination reveals no tenderness. The back is symmetrical on inspection without obvious abnormality. There is no CVA tenderness to palpation. No joint edema. LOWER EXTREMITIES: Calves are equal size bilaterally and non-tender. 2+ edema. No discoloration. NEURO: Normal sensorium. No sensory or motor deficits noted. SKIN: No rash or jaundice noted. Medical Decision & Procedures ER Provider Diagnostic Interpretation: Radiology results as stated below per my review and radiologist interpretation: CHEST ONE VIEW PORTABLE HISTORY: Atypical CHEST PAIN COMPARISON: Chest 06/08/2017. FINDINGS: No pneumothorax. No pleural effusions. Post anatomy changes. The heart remains mildly enlarged. Mild diffuse interstitial thickening has slightly progressed. There is a new 3.4 cm right suprahilar nodular density. This may be due to the overlying oxygen supply. IMPRESSION: 1. Mild diffuse interstitial thickening which is slightly progressed. This suggests developing pulmonary congestion. 2. There is a new 3.4 cm right suprahilar nodular density. This may be due to the overlying oxygen supply. Follow-up chest x-ray should be performed once the patient is stabilized to exclude a suprahilar nodule. Electronically signed by: Efraín Kwon M.D. 08/07/2017 10:44 PM Dictated Date/Time: 08/07/2017 10:41 PM Laboratory Results 08/07/17 22:00 Red Blood Count 4.49, Mean Corpuscular Volume 90.9, Mean Corpuscular Hemoglobin 30.7, Mean Corpuscular Hemoglobin Concent 33.8, Mean Platelet Volume 9.8, Neutrophils (%) (Auto) 70.6, Lymphocytes (%) (Auto) 14.5, Monocytes (%) (Auto) 7.4, Eosinophils (%) (Auto) 6.7, Basophils (%) (Auto) 0.4, Neutrophils # (Auto) 5.88, Lymphocytes # (Auto) 1.21, Monocytes # (Auto) 0.62, Eosinophils # (Auto) 0.56, Basophils # (Auto) 0.03 08/07/17 22:41 Test 08/07/17 22:00 08/07/17 22:15 08/07/17 22:41 08/07/17 23:23 White Blood Count 8.33 K/uL (4.8-10.8) Red Blood Count 4.49 M/uL (4.2-5.4) Hemoglobin 13.8 g/dL (12.0-16.0) Hematocrit 40.8 % (37-47) Mean Corpuscular Volume 90.9 fL (80-100) Mean Corpuscular Hemoglobin 30.7 pg (25-34) Mean Corpuscular Hemoglobin Concent 33.8 g/dl (32-36) Platelet Count 248 K/uL (130-400) Mean Platelet Volume 9.8 fL (7.4-10.4) Neutrophils (%) (Auto) 70.6 % Lymphocytes (%) (Auto) 14.5 % Monocytes (%) (Auto) 7.4 % Eosinophils (%) (Auto) 6.7 % Basophils (%) (Auto) 0.4 % Neutrophils # (Auto) 5.88 K/uL (1.4-6.5) Lymphocytes # (Auto) 1.21 K/uL (1.2-3.4) Monocytes # (Auto) 0.62 K/uL (0.11-0.59) Eosinophils # (Auto) 0.56 K/uL (0-0.5) Basophils # (Auto) 0.03 K/uL (0-0.2) RDW Standard Deviation 50.5 fL (36.4-46.3) RDW Coefficient of Variation 15.2 % (11.5-14.5) Immature Granulocyte % (Auto) 0.4 % Immature Granulocyte # (Auto) 0.03 K/uL (0.00-0.02) Influenza Type A (RT-PCR) Neg for Influ A (NEG) Influenza Type B (RT-PCR) Neg for Influ B (NEG) Prothrombin Time 10.0 SECONDS (9.0-12.0) Prothromb Time International Ratio 1.0 (0.9-1.1) Anion Gap 6.0 mmol/L (3-11) Est Creatinine Clear Calc Drug Dose 49.8 ml/min Estimated GFR () 65.9 Estimated GFR (Non- 56.8 BUN/Creatinine Ratio 19.2 (10-20) Calcium Level 8.8 mg/dl (8.5-10.1) Total Bilirubin 0.4 mg/dl (0.2-1) Direct Bilirubin 0.1 mg/dl (0-0.2) Aspartate Amino Transf (AST/SGOT) 10 U/L (15-37) Alanine Aminotransferase (ALT/SGPT) 12 U/L (12-78) Alkaline Phosphatase 100 U/L (45-117) Troponin I < 0.015 ng/ml (0-0.045) Pro-B-Type Natriuretic Peptide 811 pg/ml (0-900) Total Protein 6.6 gm/dl (6.4-8.2) Albumin 2.8 gm/dl (3.4-5.0) Lipase 200 U/L (73-393) Venous Blood pH 7.45 (7.36-7.41) Venous Blood Partial Pressure CO2 45 mmHg (38.0-50.0) Venous Blood Partial Pressure O2 51 mmHg Venous Blood HCO3 31 mmol/L Venous Blood Oxygen Saturation 83.9 % Venous Blood Base Excess 5.8 mEq/L Laboratory results reviewed by me Medications Administered Medications (Trade) Dose Ordered Sig/Judith Route Start Time Stop Time Status Last Admin Dose Admin Albuterol/ Ipratropium (Duoneb) 12 ml ONE ONCE INH 08/07/17 22:15 08/07/17 22:16 DC 08/07/17 22:16 12 ML Dexamethasone Sodium Phosphate (Dexamethasone Inj Pf) 10 mg NOW ONCE IV 08/07/17 23:45 08/07/17 23:46 DC 08/08/17 00:01 10 MG Levofloxacin (Levaquin Tab) 750 mg NOW STAT PO 08/07/17 23:33 08/07/17 23:35 DC 08/08/17 00:03 750 MG Potassium Chloride (Klor-Con M10) 40 meq NOW STAT PO 08/07/17 23:35 08/07/17 23:36 DC 08/08/17 00:04 40 MEQ ECG Per My Interpretation Indication: SOB/dyspnea Rate (beats per minute): 90 Rhythm: sinus rhythm Findings: PVC (occasional), no acute ischemic change, left axis deviation, other (nonspecific intraventricular block, QRS 128) Comparison ECG Date: 07-Jun-2017 Change: Similar to prior. ED Course 2155: The patient was evaluated in room A11B. A complete history and physical exam was performed. Medical Decision I reviewed the patient's past medical history, medications, and the nursing notes as described above. Etiologies such as pneumonia, COPD, reactive airway disease, CHF, cardiac ischemia, pulmonary embolism, pneumothorax, musculoskeletal, infections, gastrointestinal, as well as others were entertained. The patient is a 72 y/o woman with a pmhx of asthma, diastolic HF, AVR who presents to the emergency department with persistent cough and congestion for the past week per HPI. On arrival, the patient is in NAD, AFVSS. Saturing low to mid 90s on RA, which is c/w her values from her last discharge. On exam has diminished BS at the bases with scant wheezes. EKG unremarkable. CXR with ?mild venous congestion however BNP unremarkable. WBC wnl. Flu negative. Patient feeling improvement with continuous neb, thus sx most likely 2/2 to patient's underlying lung disease/asthma. Thus given persistent sx will treat for bronchitis with steroids and will change patient's ABX to Levaquin to add atypical coverage. Patient already has pcp appointment in the morning. Findings and plan for follow-up reviewed with patient. Patient agreeable and d/c'd per discharge instructions. Medication Reconcilliation Current Medication List: was personally reviewed by me Blood Pressure Screening Patient's blood pressure: Elevated blood pressure Impression Primary Impression: Acute bronchitis Scribe Attestation The scribe's documentation has been prepared under my direction and personally reviewed by me in its entirety. I confirm that the note above accurately reflects all work, treatment, procedures, and medical decision making performed by me. Departure Information Dispostion Home / Self-Care Prescriptions Prednisone (Prednisone) 20 Mg Tab 3 TAB PO DAILY for 4 Days, #12 TAB FOR 4 DAYS Prov: Jon Pena M.D. 08/07/17 Levofloxacin (LEVAQUIN) 750 Mg Tab 750 MG PO DAILY for 5 Days, #5 TAB Prov: Jon Pena M.D. 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 Your symptoms are likely due to a bronchitis. Otherwise, your exam, EKG, chest xray, and lab results did not show signs of an emergent condition at this time. Prednisone and Levaquin as directed. Use your albuterol inhaler 2 puffs every 4 hours for the next 48 hours and then as needed thereafter. Return to the emergency department for worsening symptoms as described in the accompanying instructions.
[2017-08-07] MEDS ORDERED: LEVOFLOXACIN 250 MG TAB PO STA (23:33)
[2017-08-07] MEDS ORDERED: POTASSIUM CHLORIDE 10 MEQ TABCR PO STA (23:35)
[2017-08-07] MEDS ORDERED: PHENSYP13 PO (23:40)
[2017-08-07 23:45] VITALS: PULSE 98
[2017-08-07] MEDS ORDERED: DEXAMETHASONE **PF** INJ 10 MG/ML VIAL IV ONE (23:45)
[2017-08-07] MEDS ORDERED: LEVO-18 PO (23:51)
[2017-08-07] MEDS ORDERED: PRED20TA PO (23:51)
[2017-08-07 23:58] VITALS: BP 122/73; O2SAT 91
[2017-08-13] MEDS ORDERED: MULT1CAP14 PO (08:15)
[2017-08-13] MEDS ORDERED: ASPI81TA28 PO (08:15)
[2017-08-13] MEDS ORDERED: ASCO500T16 PO (08:15)
[2017-08-13] MEDS ORDERED: CETI10TA84 PO (08:16)
[2017-08-13] MEDS ORDERED: ADVIN25050 INH (08:16)
== END 2017-08-08 00:14 | disposition home or self-care (01) ==
LOC: C.EDB 21:34 → C.EDA 08-08 00:14
DX: J20.9 Acute bronchitis, unspecified (principal); J45.909 Unspecified asthma, uncomplicated; I25.10 Atherosclerotic heart disease of native coronary artery without angina pectoris; E78.5 Hyperlipidemia, unspecified; I10 Essential (primary) hypertension; E03.9 Hypothyroidism, unspecified; K21.9 Gastro-esophageal reflux disease without esophagitis; Z83.3 Family history of diabetes mellitus; Z82.49 Family history of ischemic heart disease and other diseases of the circulatory system; Z79.82 Long term (current) use of aspirin; Z88.8 Allergy status to other drugs, medicaments and biological substances

== ENCOUNTER 2017-08-13 13:50 | Emergency (ER) | payer OTHER ==
[~2017-08-13] VITALS: Ht 156.2 cm; Wt 85.9 kg
[~2017-08-13 13:50] MED LIST changes: +ADVIN25050 INH; +ASCO500T16 PO; +ASPI81TA28 PO; +CETI10TA84 PO; -CYAN10005 PO; -FERR1TAB13 PO; +LEVO-18 PO; -LOSA1TAB38 PO; -METO50TA16 PO; +MULT1CAP14 PO; -OMEP20CA59 PO; +PHENSYP13 PO; -PRED10TA PO; -SIMV40TA2 PO; -VNTHFA/IN INH
[2017-08-13 14:00] VITALS: TEMP 36.4; Ht 156.2 cm; Wt 85.9 kg
[2017-08-13] MEDS ORDERED: POTA-74 PO (16:10)
[2017-08-13] MEDS ORDERED: MGNO400 PO (16:10)
[2017-08-13] MEDS ORDERED: SYN75 PO (16:10)
[2017-08-13] MEDS ORDERED: ALBUT/IPRATROP 3MG/0.5MG NEB 3 ML VIAL INH STA (17:07)
[2017-08-13] MEDS ORDERED: ASPIRIN 81 MG CHEW PO STA (17:07)
[2017-08-13] MEDS ORDERED: METHYLPREDNISOLONE 125 MG VIAL IV STA (17:11)
[2017-08-13 17:17] VITALS: O2SAT 98
--- NOTE | 2017-08-13 17:20 | EMERGENCY ROOM VISIT NOTE ---
History Report prepared by Marcela: Hunter Apodaca Under the Supervision of: Dr. Miguel Ángel Trotter M.D. First contact with patient: 16:57 Chief Complaint: CHEST PAIN Stated Complaint: CHEST PAIN Nursing Triage Summary: I was here last week and placed in antibiotics for bronchitis and sinus congestion. I have been coughing and I have pain in the center of my chest when I breath History of Present Illness The patient is a 72 year old female who presents to the Emergency Room with complaints of worsening shortness of breath beginning last week. She currently rates her discomfort a 2/10 in severity. The patient states she was in the ED and diagnosed with bronchitis. She reports she was placed on Prednisone and an antibiotic. The patient notes she finished the Prednisone over the weekend and the antibiotics yesterday. She states she woke up this morning and did not feel well. The patient reports he had discomfort with breathing and began coughing. She notes she felt nauseous on the way to the ED as well. The patient states she has a history of asthma and COPD. She reports she also has a history of valve replacement that needs to be fixed. The patient denies vomiting, loss of consciousness, blood in her stool, blood in her urine, being on blood thinner medication, and a history of CHF. Source of History: patient Onset: last week Symptom Intensity: 2/10 Quality: other (SOB) Timing: worsening Associated Symptoms: + cough, + nausea, No LOC, No vomiting Note: Denies: blood in her stool, blood in her urine Review of Systems See HPI for pertinent positives and negatives. A total of ten systems were reviewed and were otherwise negative. Past Medical & Surgical Medical Problems: (1) Arthritis of right hip (2) Asthma (3) CAD (coronary artery disease) (4) GERD (gastroesophageal reflux disease) (5) HLD (hyperlipidemia) (6) HTN (hypertension) (7) Hypothyroidism (8) Respiratory failure Surgical Problems: (1) H/O: hysterectomy (2) History of left heart catheterization (LHC) (3) History of right hip replacement (4) History of tonsillectomy and adenoidectomy (5) S/P AVR Family History Diabetes mellitus FH: cancer FH: heart disease Hypertension Social History Smoking Status: Never Smoker Alcohol Use: none Drug Use: none Marital Status: Housing Status: lives with significant other Occupation Status: unemployed Current/Historical Medications Scheduled Amlodipine (Norvasc), 5 MG PO DAILY Amoxicillin & Pot Clavulanate (Augmentin 875-125 mg), 1 TAB PO BID Ascorbic Acid (Ascorbic Acid), 500 MG PO DAILY Aspirin (Aspirin Ec), 81 MG PO DAILY Atorvastatin (Lipitor), 20 MG PO DAILY Cetirizine (Zyrtec), 10 MG PO QAM Cyanocobalamin (Vitamin B12), 1,000 MCG PO DAILY Ferrous Sulfate (Ferrous Sulfate), 325 MG PO QAM Fluticasone Prop/Salmeterol (Advair Diskus 250-50 Mcg/Dose), 1 PUFF INH BID Furosemide (Furosemide), 40 MG PO QAM Ipratropium-Albuterol (Combivent Respimat), 1 PUFFS INH QID Levothyroxine Sodium (Synthroid), 1 TAB PO DAILY Magnesium Oxide (Magnesium-Oxide), 1 TAB PO PM Multiple Vitamins W/ Minerals ([employer] [facility] Formul), 1 CAP PO DAILY Omeprazole (Prilosec), 20 MG PO DAILY Potassium Chloride (Potassium Chloride Er), 2 TAB PO DAILY Scheduled PRN Albuterol Sulf (Albuterol Sulfate), 2.5 MG NEB Q4 PRN for SOB/Wheezing Docusate Sodium (Docusate Sodium), 1 CAP PO BID PRN for Constipation Nitroglycerin (Nitrostat), 0.4 MG UT UD PRN for Chest Pain Allergies Coded Allergies: Erythromycin (Verified Adverse Reaction, Unknown, GI UPSET AND CRAMPING, ) Tetracycline (Verified Adverse Reaction, Unknown, GI UPSET, 06/05/17) Physical Exam Vital Signs Date Time Temp Pulse Resp B/P (MAP) Pulse Ox O2 Delivery O2 Flow Rate FiO2 08/13/17 21:30 80 128/93 95 08/13/17 19:02 86 143/82 95 08/13/17 18:15 46 18 92 08/13/17 18:10 85 17 08/13/17 18:05 61 19 96 08/13/17 18:01 151/95 08/13/17 18:00 77 20 93 08/13/17 17:55 56 18 95 08/13/17 17:50 78 14 95 08/13/17 17:45 61 21 91 08/13/17 17:40 67 16 92 08/13/17 17:35 75 17 96 08/13/17 17:32 167/109 08/13/17 17:31 175/111 08/13/17 17:30 72 22 100 08/13/17 17:25 45 20 100 08/13/17 17:20 77 25 95 08/13/17 17:19 86 08/13/17 17:17 98 Room Air 08/13/17 17:17 Room Air 08/13/17 17:06 153/112 08/13/17 14:00 36.4 70 18 142/79 98 Room Air Physical Exam Physical Exam GENERAL: She is oriented to person, place, and time. She appears well- developed and well-nourished. She does not appear distressed. ____ HENT: Exam performed. Head: Normocephalic and atraumatic. Right Ear: External ear normal. No mastoid tenderness. Left Ear: External ear normal. No mastoid tenderness. Mouth/Throat: The oropharynx is clear and moist. No trismus in the jaw. No dental abscesses or uvula swelling. No oropharyngeal exudate or tonsillar abscesses. ____ EYES: Conjunctivae and EOM are normal. Pupils are equal, round, and reactive to light. Right eye exhibits no discharge. Left eye exhibits no discharge. No scleral icterus. ____ NECK: Normal range of motion. Neck supple. No JVD present. No spinous process tenderness present. No carotid bruit present. No rigidity. No tracheal deviation and normal range of motion present. No Brudzinski's sign and no Kernig 's sign noted. ____ CV: Normal rate, regular rhythm, normal heart sounds and intact distal pulses. There is 2+ pitting edema. Palpable radial pulses bue. ____ PULM/CHEST: Effort normal and breath sounds normal. No respiratory distress. No stridor. She has no wheezes. She has no rales. Chest Wall: She exhibits no tenderness. ____ ABD: The abdomen is soft. Bowel sounds are normal. She has no distension. No mass is present. There is no tenderness. There is no rebound, no guarding, no Keene's sign and no tenderness at McBurney's point. Rovsig negative MUSC/SKEL: Normal range of motion. There is 2+ pitting edema. No tenderness or deformity. LYMPH: No cervical adenopathy. ____ NEURO: She is alert and oriented to person, place, and time. She has normal strength. No cranial nerve deficit or sensory deficit. Coordination and gait normal. GCS eye subscore is 4. GCS verbal subscore is 5. GCS motor subscore is 6. Cerebellar tests wnl. ____ SKIN: Skin is warm and dry. She is not diaphoretic. ____ PSYCH: She has a normal mood and affect. Her behavior is normal. Judgment and thought content normal. ____ Medical Decision & Procedures ER Provider Diagnostic Interpretation: Radiology results as stated below per my review and radiologist interpretation: CT ANGIOGRAM OF THE CHEST CLINICAL HISTORY: Atypical chest pain. COMPARISON STUDY: Chest x-ray dated 08/13/2017. TECHNIQUE: Following the IV administration of 78 cc of Optiray 320, CT angiogram of the chest was performed from the upper abdomen to the thoracic inlet utilizing the pulmonary embolus protocol. Images are reviewed in the axial, sagittal, and coronal planes. 3-D MIPS images are created and assessed. IV contrast was administered without complication. A dose lowering technique was utilized adhering to the principles of ALARA. CT DOSE: 285.35 mGy.cm FINDINGS: Thyroid: Imaged portions of the thyroid gland are normal in size and attenuation. Thoracic aorta: There is atherosclerotic calcification of the thoracic aorta. There is mild ectasia of the proximal descending thoracic aorta which measures up to 3.3 cm in diameter. The remainder of the thoracic aorta is Normal in caliber and demonstrates 4-vessel variant arch anatomy. An aberrant right subclavian artery arises as the fourth branch and courses posterior to the esophagus. No dissection is seen. Pulmonary vasculature: The main pulmonary arteries appear dilated suggesting pulmonary artery hypertension. There are no filling defects identified in main, lobar, or segmental pulmonary branches to suggest pulmonary embolus. Heart: The patient is status post midline sternotomy. The heart is enlarged and without pericardial effusion. There is calcification of the aortic valve leaflets and the coronary arteries. Lungs and pleural spaces: Evaluation of the lung parenchyma is modestly degraded by motion artifact. Facet linear atelectasis are present in the upper lobes bilaterally. No airspace consolidation is seen typical for pneumonia and there is no pleural effusion. The trachea and central airways are clear. Mediastinum: There is no mediastinal lymphadenopathy. Renuka: Clear. Axillae: There is no axillary lymphadenopathy. Upper abdomen: There is a small hiatal hernia. Partially visualized upper abdominal viscera is within normal limits. Skeletal structures: The skeletal structures are osteopenic. Arthritic change is noted in the shoulders. No lytic or blastic bony lesions are seen. IMPRESSION: 1. There is no evidence of pulmonary embolus in the main, lobar, or segmental pulmonary arteries. 2. Cardiomegaly. 3. There is no airspace consolidation typical for pneumonia or pleural effusion. 4. There is mild ectasia of the proximal descending thoracic aorta as above. 5. An aberrant right subclavian artery is incidentally noted. 6. Additional findings as above. Electronically signed by: Harshad Hansen M.D. 08/13/2017 6:35 PM Dictated Date/Time: 08/13/2017 6:29 PM SINGLE VIEW CHEST CLINICAL HISTORY: Atypical chest pain. FINDINGS: An AP, portable, upright chest radiograph is compared to study dated 08/07/2017. The examination is degraded by portable technique and patient rotation. The patient is status post midline sternotomy. The heart is enlarged and there is atherosclerotic calcification of the thoracic aorta. There is mild pulmonary vascular congestion. Linear atelectasis is present in the mid lung bilaterally. No airspace consolidation is seen typical for pneumonia and there is no large pleural effusion. No pneumothorax is seen. The skeletal structures are osteopenic. The bony thorax is grossly intact. IMPRESSION: Cardiomegaly with evidence of mild congestive failure. Electronically signed by: Harshad Hansen M.D. 08/13/2017 5:24 PM Dictated Date/Time: 08/13/2017 5:22 PM Laboratory Results 08/13/17 17:30 Red Blood Count 4.89, Mean Corpuscular Volume 90.8, Mean Corpuscular Hemoglobin 30.5, Mean Corpuscular Hemoglobin Concent 33.6, Mean Platelet Volume 9.6, Neutrophils (%) (Auto) 78.2, Lymphocytes (%) (Auto) 10.4, Monocytes (%) (Auto) 7.2, Eosinophils (%) (Auto) 3.0, Basophils (%) (Auto) 0.2, Neutrophils # (Auto) 8.34, Lymphocytes # (Auto) 1.11, Monocytes # (Auto) 0.77, Eosinophils # (Auto) 0.32, Basophils # (Auto) 0.02 08/13/17 17:30 Test 08/13/17 17:30 08/13/17 17:42 08/13/17 18:14 08/13/17 20:21 White Blood Count 10.67 K/uL (4.8-10.8) Red Blood Count 4.89 M/uL (4.2-5.4) Hemoglobin 14.9 g/dL (12.0-16.0) Hematocrit 44.4 % (37-47) Mean Corpuscular Volume 90.8 fL (80-100) Mean Corpuscular Hemoglobin 30.5 pg (25-34) Mean Corpuscular Hemoglobin Concent 33.6 g/dl (32-36) Platelet Count 294 K/uL (130-400) Mean Platelet Volume 9.6 fL (7.4-10.4) Neutrophils (%) (Auto) 78.2 % Lymphocytes (%) (Auto) 10.4 % Monocytes (%) (Auto) 7.2 % Eosinophils (%) (Auto) 3.0 % Basophils (%) (Auto) 0.2 % Neutrophils # (Auto) 8.34 K/uL (1.4-6.5) Lymphocytes # (Auto) 1.11 K/uL (1.2-3.4) Monocytes # (Auto) 0.77 K/uL (0.11-0.59) Eosinophils # (Auto) 0.32 K/uL (0-0.5) Basophils # (Auto) 0.02 K/uL (0-0.2) RDW Standard Deviation 53.7 fL (36.4-46.3) RDW Coefficient of Variation 16.3 % (11.5-14.5) Immature Granulocyte % (Auto) 1.0 % Immature Granulocyte # (Auto) 0.11 K/uL (0.00-0.02) Anion Gap 8.0 mmol/L (3-11) Est Creatinine Clear Calc Drug Dose 43.6 ml/min Estimated GFR () 54.9 Estimated GFR (Non- 47.3 BUN/Creatinine Ratio 23.3 (10-20) Calcium Level 9.2 mg/dl (8.5-10.1) Pro-B-Type Natriuretic Peptide 968 pg/ml (0-900) Influenza Type A Antigen Neg for Influ A (NEG) Influenza Type B Antigen Neg for Influ B (NEG) Bedside Lactic Acid Venous 2.68 mmol/L (0.90-1.70) Venous Blood pH 7.42 (7.36-7.41) Venous Blood Partial Pressure CO2 50 mmHg (38.0-50.0) Venous Blood Partial Pressure O2 25 mmHg Venous Blood HCO3 32 mmol/L Venous Blood Oxygen Saturation < 60.0 % Venous Blood Base Excess 6.1 mEq/L Lactic Acid Level 2.1 mmol/L (0.4-2.0) Troponin I < 0.015 ng/ml (0-0.045) Laboratory results reviewed by me Medications Administered Medications (Trade) Dose Ordered Sig/Judith Route Start Time Stop Time Status Last Admin Dose Admin Albuterol/ Ipratropium (Duoneb) 3 ml NOW STAT INH 08/13/17 17:07 08/13/17 17:11 DC 08/13/17 17:23 3 ML Aspirin (Aspirin Chew) 324 mg NOW STAT PO 08/13/17 17:07 08/13/17 17:11 DC 08/13/17 17:23 324 MG Methylprednisolone Sodium Succinate (Solu-Medrol IV) 125 mg NOW STAT IV 08/13/17 17:11 08/13/17 17:13 DC 08/13/17 17:22 125 MG Furosemide (Lasix Inj) 40 mg STK-MED ONCE .ROUTE 08/13/17 20:24 08/13/17 20:25 DC 08/13/17 20:26 40 MG ECG Per My Interpretation Indication: chest pain Rate (beats per minute): 67 Rhythm: sinus rhythm Findings: LBBB, other (TX & QTc are wnl. QRS is 130. No ST elevation or depression. No sgarbossa.) Comparison ECG Date: 08/07/2017 Change: no significant change ED Course 1706: The patient was evaluated in room B07. A complete history and physical exam was performed. 1707: Ordered Aspirin 324mg PO, Duoneb 3ml INH 1711: Ordered Solu-Medrol IV 125mg IV 1840: Review of EMR - the patient has a history of coronary artery disease, aortic valve disease, and a history of an aortic valve replacement in [place] in 2008 for severe aortic stenosis. The patient had a TTE in September of 2011 which showed a normally functioning aortic valve. 194: Labs within normal limits with the exception of a elevated proBNP of 968, troponin negative. CTA of the chest shows no pulmonary embolus, mild cardiomegaly. I discussed her case with the on-call certified phlebotomist, Dr. Pascual, Cardiology. He states the patient could stay in the hospital for diuresis and a CHF work-up, or she may be place on Lasix and follow up as an outpatient in the office. The manager rn case was able to obtain the patient's medical records from [facility]. The patient had a TTE done in April of 2017. It showed an ejection fraction of 60-65%. The patient would prefer to follow-up in the office. A repeat troponin will be taken, if negative, the patient will be discharged for outpatient follow-up. 2023: Ordered Furosemide 40 mg .ROUTE 2118: Vital signs stable. The patient reports no more shortness of breath. Status post one dose of Lasix and duoneb. The patient's repeat troponin was negative. DISCHARGE - Plan of care discussed with patient and questions answered. The patient was given both verbal and printed discharge instructions. The patient verbalized understanding and ability to comply. The patient is to seek outpatient follow up as noted in the discharge instructions. The patient verbalized understanding and ability to comply. The patient is discharged in stable condition. The patient was instructed to return for worsening symptoms. Medical Decision 1706: The patient was evaluated in room B07. A complete history and physical exam was performed. 1707: Ordered Aspirin 324mg PO, Duoneb 3ml INH 1711: Ordered Solu-Medrol IV 125mg IV 1840: Review of EMR - the patient has a history of coronary artery disease, aortic valve disease, and a history of an aortic valve replacement in [place] in 2008 for severe aortic stenosis. The patient had a TTE in September of 2011 which showed a normally functioning aortic valve. 1941: Labs within normal limits with the exception of a elevated proBNP of 968, troponin negative. CTA of the chest shows no pulmonary embolus, mild cardiomegaly. I discussed her case with the on-call certified phlebotomist, Dr. Pascual, Cardiology. He states the patient could stay in the hospital for diuresis and a CHF work-up, or she may be place on Lasix and follow up as an outpatient in the office. The manager rn case was able to obtain the patient's medical records from [facility]. The patient had a TTE done in April of 2017. It showed an ejection fraction of 60-65%. The patient would prefer to follow-up in the office. A repeat troponin will be taken, if negative, the patient will be discharged for outpatient follow-up. 2023: Ordered Furosemide 40 mg .ROUTE 2118: Vital signs stable. The patient reports no more shortness of breath. Status post one dose of Lasix and duoneb. The patient's repeat troponin was negative. DISCHARGE - Plan of care discussed with patient and questions answered. The patient was given both verbal and printed discharge instructions. The patient verbalized understanding and ability to comply. The patient is to seek outpatient follow up as noted in the discharge instructions. The patient verbalized understanding and ability to comply. The patient is discharged in stable condition. The patient was instructed to return for worsening symptoms. Medication Reconcilliation Current Medication List: was personally reviewed by me Blood Pressure Screening Patient's blood pressure: Normal blood pressure Blood pressure disposition: Did not require urgent referral Consults Time Called: 1937 Consulting Physician: Dr. Pascual, Cardiology Returned Call: 1940 I discussed her case with the on-call certified phlebotomist, Dr. Pascual, Cardiology. He states the patient could stay in the hospital for diuresis and a CHF work-up, or she may be place on Lasix and follow up as an outpatient in the office. Impression Primary Impression: Dyspnea Additional Impression: Congestive heart failure Scribe Attestation The scribe's documentation has been prepared under my direction and personally reviewed by me in its entirety. I confirm that the note above accurately reflects all work, treatment, procedures, and medical decision making performed by me. The chart was completed utilizing [employer] Speech voice recognition software. Grammatical errors, random word insertions, pronoun errors, and incomplete sentences are an occasional consequence of this system due to software limitations, ambient noise, and hardware issues. Any formal questions or concerns about the content, text, or information contained within the body of this dictation should be directly addressed to the physician for clarification. Departure Information Dispostion Home / Self-Care Referrals Peggy Reyes M.D. (PCP) Forms Call Back Authorization, HOME CARE DOCUMENTATION FORM, IMPORTANT VISIT INFORMATION Patient Instructions ED CHF General, ED Dyspnea Shortness of Breath, My [facility] Additional Instructions Call to make an appointment with your certified phlebotomist Dr. Llanes tomorrow. Problem Qualifiers Primary Impression: Dyspnea Dyspnea type: unspecified Qualified Codes: R06.00 - Dyspnea, unspecified Additional Impression: Congestive heart failure Heart failure type: unspecified Heart failure chronicity: acute on chronic Qualified Codes: I50.9 - Heart failure, unspecified
--- NOTE | 2017-08-13 17:25 | DIAGNOSTIC IMAGING REPORT ---
SINGLE VIEW CHEST CLINICAL HISTORY: Atypical chest pain. FINDINGS: An AP, portable, upright chest radiograph is compared to study dated 08/07/2017. The examination is degraded by portable technique and patient rotation. The patient is status post midline sternotomy. The heart is enlarged and there is atherosclerotic calcification of the thoracic aorta. There is mild pulmonary vascular congestion. Linear atelectasis is present in the mid lung bilaterally. No airspace consolidation is seen typical for pneumonia and there is no large pleural effusion. No pneumothorax is seen. The skeletal structures are osteopenic. The bony thorax is grossly intact. IMPRESSION: Cardiomegaly with evidence of mild congestive failure. Electronically signed by: Harshad Hansen M.D. 08/13/2017 5:24 PM Dictated Date/Time: 08/13/2017 5:22 PM
[2017-08-13] MEDS ORDERED: OPTIRAY 320 IV PRN (17:30)
[2017-08-13 17:48] LABS: BASO % 0.2 %; BASO ABS # 0.02 K/uL (0-0.2); EOS ABS # 0.32 K/uL (0-0.5); HEMATOCRIT 44.4 % (37-47); HEMOGLOBIN 14.9 g/dL (12.0-16.0); IG# 0.11 K/uL (0.00-0.02); LYMPH % 10.4 %; LYMPH ABS # 1.11 K/uL (1.2-3.4); MEAN CELL VOLUME 90.8 fL (80-100); MEAN CORPUSCULAR HEMOGLOBIN 30.5 pg (25-34); MEAN CORPUSCULAR HGB CONC 33.6 g/dl (32-36); MEAN PLATELET VOLUME 9.6 fL (7.4-10.4); MONO % 7.2 %; MONO ABS # 0.77 K/uL (0.11-0.59); NEUT % 78.2 %; NEUT ABS # 8.34 K/uL (1.4-6.5); PLATELET COUNT 294 K/uL (130-400); RED CELL DISTRIBUTION WIDTH CV 16.3 % (11.5-14.5); RED CELL DISTRIBUTION WIDTH SD 53.7 fL (36.4-46.3); WHITE BLOOD COUNT 10.67 K/uL (4.8-10.8)
[2017-08-13 18:05] LABS: CALCIUM 9.2 mg/dl (8.5-10.1); CREATININE 1.14 mg/dl (0.60-1.20); POTASSIUM 4.4 mmol/L (3.5-5.1)
--- NOTE | 2017-08-13 18:37 | DIAGNOSTIC IMAGING REPORT ---
CT ANGIOGRAM OF THE CHEST CLINICAL HISTORY: Atypical chest pain. COMPARISON STUDY: Chest x-ray dated 08/13/2017. TECHNIQUE: Following the IV administration of 78 cc of Optiray 320, CT angiogram of the chest was performed from the upper abdomen to the thoracic inlet utilizing the pulmonary embolus protocol. Images are reviewed in the axial, sagittal, and coronal planes. 3-D MIPS images are created and assessed. IV contrast was administered without complication. A dose lowering technique was utilized adhering to the principles of ALARA. CT DOSE: 285.35 mGy.cm FINDINGS: Thyroid: Imaged portions of the thyroid gland are normal in size and attenuation. Thoracic aorta: There is atherosclerotic calcification of the thoracic aorta. There is mild ectasia of the proximal descending thoracic aorta which measures up to 3.3 cm in diameter. The remainder of the thoracic aorta is Normal in caliber and demonstrates 4-vessel variant arch anatomy. An aberrant right subclavian artery arises as the fourth branch and courses posterior to the esophagus. No dissection is seen. Pulmonary vasculature: The main pulmonary arteries appear dilated suggesting pulmonary artery hypertension. There are no filling defects identified in main, lobar, or segmental pulmonary branches to suggest pulmonary embolus. Heart: The patient is status post midline sternotomy. The heart is enlarged and without pericardial effusion. There is calcification of the aortic valve leaflets and the coronary arteries. Lungs and pleural spaces: Evaluation of the lung parenchyma is modestly degraded by motion artifact. Facet linear atelectasis are present in the upper lobes bilaterally. No airspace consolidation is seen typical for pneumonia and there is no pleural effusion. The trachea and central airways are clear. Mediastinum: There is no mediastinal lymphadenopathy. Renuka: Clear. Axillae: There is no axillary lymphadenopathy. Upper abdomen: There is a small hiatal hernia. Partially visualized upper abdominal viscera is within normal limits. Skeletal structures: The skeletal structures are osteopenic. Arthritic change is noted in the shoulders. No lytic or blastic bony lesions are seen. IMPRESSION: 1. There is no evidence of pulmonary embolus in the main, lobar, or segmental pulmonary arteries. 2. Cardiomegaly. 3. There is no airspace consolidation typical for pneumonia or pleural effusion. 4. There is mild ectasia of the proximal descending thoracic aorta as above. 5. An aberrant right subclavian artery is incidentally noted. 6. Additional findings as above. Electronically signed by: Harshad Hansen M.D. 08/13/2017 6:35 PM Dictated Date/Time: 08/13/2017 6:29 PM
[2017-08-13 19:25] LABS: INFLUENZA B ANTIGEN Neg for Influ B (NEG)
[2017-08-13] MEDS ORDERED: FUROSEMIDE INJ 40 MG in SYRINGE 0 ML IV ONE (20:15)
[2017-08-13] MEDS ORDERED: FUROSEMIDE 40 MG/4 ML VIAL ONE (20:24)
[2017-08-13 21:30] VITALS: BP 128/93; PULSE 80; O2SAT 95
[2017-08-13] MEDS ORDERED: ATOR-54 PO (23:28)
[2017-08-13] MEDS ORDERED: AMLO-110 PO (23:28)
[2017-08-13] MEDS ORDERED: PRLSR20 PO (23:30)
[2017-08-13] MEDS ORDERED: CYAN100020 PO (23:33)
[2017-08-13] MEDS ORDERED: FERR325T5 PO (23:33)
[2017-08-13] MEDS ORDERED: DOCU100C31 PO (23:36)
[2017-08-13] MEDS ORDERED: ALBINSX NEB (23:41)
== END 2017-08-13 21:31 | disposition home or self-care (01) ==
LOC: C.EDB 13:52
DX: R06.00 Dyspnea, unspecified (principal); I50.9 Heart failure, unspecified; R07.9 Chest pain, unspecified; I25.10 Atherosclerotic heart disease of native coronary artery without angina pectoris; E03.9 Hypothyroidism, unspecified; Z79.899 Other long term (current) drug therapy; Z79.82 Long term (current) use of aspirin

== ENCOUNTER 2021-08-11 16:34 | Observation (INO) ==
[2021-08-11] MEDS ORDERED: ACETAMINOPHEN 1,000 MG/100 ML VIAL IV STA (16:59)
[2021-08-11] MEDS ORDERED: SODIUM CHLORIDE 0.9% 500 ML IV ONE (16:59)
[2021-08-11] MEDS ORDERED: LOSARTAN POTASSIUM 25 MG TAB PO STA ×2 (17:16→23:32)
--- NOTE | 2021-08-11 17:16 | Emergency Department Note ---
Impression & Plan Hypertensive urgency, Headache, Hypokalemia ED Provider Note NAME: KEVIN CARPIO AGE: 76 SEX: F ARRIVES VIA: Walk-In INFORMANT: Patient ED PROVIDER(S): Jon Pena MD CHIEF COMPLAINT: headache, hypertension. PLAN: Disposition: Admit MEDICAL DECISION MAKING: The patient is a pleasant 76-year-old woman with a past medical history of CAD, hypertension, CKD, JUDE, status post aortic valve replacement, GERD, hypothyroidism who presents to the emergency department accompanied by her for evaluation of acute onset frontal headache which was preceded by seeing spots transiently in both eyes which has subsequently calmed down and resolved though she reports he has a "strange sensation still. She reports she forgot to take her blood pressure medicine this morning due to running out of the house. She denies any recent illness including denies fevers, chills, cough, congestion, GI or symptoms. The patient is relatively well-appearing in no distress, afebrile with blood pressure 200s/80s in the setting of missing her medications this morning. She has no focal neurologic deficits. EKG without overt acute ischemia and similar to prior. CXR negative for acute cardiopulmonary process with comment of stable vascular congestion. WBC, H/H and platelets within normal limits. Chemistry without metabolic acidosis. Potassium 3.2 and electrolytes otherwise without significant abnormality. Troponin negative/undetectable. LFTs unremarkable. Lipase is not elevated. UA appears contaminated with WBCs but no bacteria patient denies urinary symptoms. CT of the head and CTA of the head and neck was negative for acute ICH, ischemia or severe narrowing or occlusion of large vessels. The patient was treated with gentle IV fluid hydration, APAP and she was given her home losartan which she did not take this morning. Upon reevaluation the patient's blood pressure was slightly improved to the 180s/80s the patient denied any significant improvement in symptoms. Given the persistence of her hypertension and symptoms we did agre e to proceed with plan for admission. She was ordered for labetalol for additional blood pressure control. Case was discussed with Dr. Mayorga, [facility] hospitalist, who will evaluate the patient for admission. Triage Nursing notes reviewed and agree them. Prior medical records reviewed Vital Signs: reviewed and remarkable for no significant abnormalities Differential diagnosis: Infection, dehydration, metabolic abnormality, hypo/hyperglycemia, electrolyte disturbance, anemia, hypoxia, cardiac sources, intracerebral event, toxicologic, neurologic, as well as other pathologies. ER treatment provided: See below. Diagnostics interpreted by me: ECG: Normal sinus rhythm, 69 bpm, no ectopy, nonspecific intraventricular conduction block, no sgarbossa criteria. QTc 484, QRS 130. Similar to prior. Cardiac Monitoring: An order for continuous cardiac monitoring was placed and demonstrated Normal sinus rhythm, 69 bpm, no ectopy. Laboratory studies: See below Imaging studies: See below Consultation(s): Dr. Mayorga, [facility] hospitalist. HPI: The patient is a pleasant 76-year-old woman with a past medical history of CAD, hypertension, CKD, JUDE, status post aortic valve replacement, GERD, hypothyroidism who presents to the emergency department accompanied by her for evaluation of acute onset frontal headache which was preceded by seeing spots transiently in both eyes which has subsequently calmed down and resolved though she reports he has a "strange sensation still. She reports she forgot to take her blood pressure medicine this morning due to running out of the house. She denies any recent illness including denies fevers, chills, cough, congestion, GI or symptoms. ROS: See above HPI for pertinent positives & negatives. A total of 10 systems reviewed and were otherwise negative. VITALS:See Below PHYSICAL EXAMINATION: GENERAL: Awake, alert, well-appearing, in no distress HENT: Normocephalic, atraumatic. Oropharynx with dry mucous membranes and otherwise unremarkable. EYES: Normal conjunctiva. Sclera non-icteric. NECK: Supple. No nuchal rigidity. FROM. No JVD. RESPIRATORY: Clear to auscultation. CARDIAC: Regular rate, normal rhythm. Extremities warm and well perfused. Pulses equal. ABDOMEN: Soft, non-distended. No tenderness to palpation. No rebound or guarding. No masses. RECTAL: Deferred. MUSCULOSKELETAL: Chest examination reveals no tenderness. The back is symmetrical on inspection without obvious abnormality. There is no CVA tenderness to palpation. No joint edema. LOWER EXTREMITIES: Calves are equal size bilaterally and non-tender. Scant edema. No discoloration. NEURO: Normal sensorium. No sensory or motor deficits noted. Speech is fluent. Steady gait. 5/5 strength and SILT x 4 extremities. Cerebellar function intact including [id number], alternating palms, [id number]. Visual an grossly intact. SKIN: No rash or jaundice noted. Jon Pena MD Past Med/Surg History Medical History Asthma CAD (coronary artery disease) GERD (gastroesophageal reflux disease) History of aortic stenosis HLD (hyperlipidemia) HTN (hypertension) Hypothyroidism Moderate obstructive sleep apnea Myocardial infarction Nocturnal hypoxemia Obesity PLMD (periodic limb movement disorder) Renal insufficiency Respiratory failure Surgical History H/O aortic valve replacement H/O: hysterectomy History of left heart catheterization (LHC) "CORONARY ARTERY DILATION, B[place]ON 05/2008 left PDA" S/P hip replacement S/P T&A (status post tonsillectomy and adenoidectomy) Family History Other Aortic stenosis Diabetes Social History Smoking Status: Never smoker Tobacco Type: Cigarettes Hx Alcohol Use: No Hx Substance Use: No Preferred Language: Upper Sorbian Communication Ability: Effective Endoscopy Tech Required: No Beliefs That Will Affect Care: Quaker marital status: Current Living Situation: Spouse current occupational status: retired Other Information That Helps Us Care for You: No Feels Safe at Home: Yes Safety Concerns: Feels Safe At This Time Assistive Devices: Hearing Aid - Bilateral Allergies Allergies Allergy/AdvReac Type Severity Reaction Status Date / Time erythromycin base AdvReac Intermediate GI UPSET Verified 08/11/21 17:48 AND CRAMPING tetracycline AdvReac Intermediate GI UPSET Verified 08/11/21 17:48 Home Meds Home Medications Medication Instructions Recorded Confirmed ascorbate calcium (vitamin C) 500 500 mg PO DAILY 12/17/18 08/11/21 mg tablet aspirin 81 mg tablet,delayed 81 mg PO DAILY 12/17/18 08/11/21 release (Adult Low Dose Aspirin) cyanocobalamin (vitamin B-12) 1,000 mcg PO DAILY 12/17/18 08/11/21 1,000 mcg capsule ipratropium 0.5 mg-albuterol 3 mg 3 ml INH QID PRN 12/17/18 08/11/21 (2.5 mg base)/3 mL nebulization soln levothyroxine 75 mcg capsule 75 mcg PO DAILYBB 12/17/18 08/11/21 loratadine 10 mg tablet 10 mg PO DAILY 12/17/18 08/11/21 magnesium oxide 400 mg PO DAILY tab 12/17/18 08/11/21 metoprolol tartrate 50 mg tablet 50 mg PO .COMPLEX 12/17/18 08/11/21 nitroglycerin 0.4 mg sublingual 0.4 mg SL Q5M PRN 12/17/18 08/11/21 tablet potassium chloride 10 mEq 10 meq PO BID 12/17/18 08/11/21 capsule,extended release torsemide 100 mg tablet 50 mg PO DAILY 12/17/18 08/11/21 ezetimibe 10 mg tablet 10 mg PO DAILY 12/26/18 08/11/21 fluticasone propionate 50 2 spray INTRANASAL HS 07/02/19 08/11/21 mcg/actuation nasal spray,suspension amoxicillin 500 mg capsule 2,000 mg PO DIRECTED PRN 11/14/20 08/11/21 atorvastatin 40 mg tablet 40 mg PO DAILY 11/14/20 08/11/21 fluticasone 250 mcg-salmeterol 50 1 ea INHALATION BID 11/14/20 08/11/21 mcg/dose blistr powdr for inhalation losartan 25 mg tablet 25 mg PO DAILY 11/14/20 08/11/21 omeprazole magnesium 20 mg 20 mg PO DAILY 11/14/20 08/11/21 tablet,delayed release vit C,E,zinc,copper-[id number] 250 1 cap PO DAILY 11/14/20 08/11/21 mg-lutein 5 mg-zeaxanthin 1 mg capsule (Ocuvite Adult 50 Plus) duloxetine 20 mg capsule,delayed 20 mg PO DAILY 08/11/21 08/11/21 release glipizide 2.5 mg tablet, extended 2.5 mg PO DAILYBB 08/11/21 08/11/21 release 24 hr Previous Rx's Medication Instructions Recorded CPAP Machine #1 ea 02/13/19 Results & Data (ED) Vital Signs Vital Signs - 24 hr 08/11/21 16:39 08/11/21 17:01 08/11/21 18:51 Temperature 36.4 C L Temperature Source Temporal Artery Scan Pulse Rate 79 Pulse Rate [Left Radial] 74 71 Pulse Rhythm [Left Radial] Regular Regular Respiratory Rate 18 20 20 Respiratory Effort / Characteristics Non-Labored Non-Labored Non-Labored Respiratory Depth Normal Normal Normal Blood Pressure 205/89 H Blood Pressure [Left Arm] 184/93 H 202/102 H Blood Pressure Mean 127 Blood Pressure Mean [Left Arm] 123 135 Blood Pressure Position [Left Arm] Lying Pulse Oximetry 92 95 97 Oxygen Delivery Method Room Air Room Air Room Air Sepsis Recent Fever Within 48 Hours No Sepsis New/Unexplained Change in Mental Status No Sepsis Action Taken by Nursing No Action Required 08/11/21 20:00 Temperature Temperature Source Pulse Rate Pulse Rate [Left Radial] 68 Pulse Rhythm [Left Radial] Regular Respiratory Rate 20 Respiratory Effort / Characteristics Non-Labored Respiratory Depth Normal Blood Pressure Blood Pressure [Left Arm] 178/98 H Blood Pressure Mean Blood Pressure Mean [Left Arm] 124 Blood Pressure Position [Left Arm] Lying Pulse Oximetry 97 Oxygen Delivery Method Sepsis Recent Fever Within 48 Hours Sepsis New/Unexplained Change in Mental Status Sepsis Action Taken by Nursing Laboratory Data Attestation: I reviewed the patient's lab results. Result diagrams: 08/11/21 17:30 08/11/21 17:30 Lab Results 08/11/21 08/11/21 08/11/21 Range/Units 17:30 17:30 17:30 WBC 7.88 (4.8-10.8) K/uL RBC 4.69 (4.2-5.4) M/uL Hgb 14.3 (12.0-16.0) g/dL Hct 42.4 (37-47) % MCV 90.4 (80-100) fL MCH 30.5 (25-34) pg MCHC 33.7 (32-36) g/dL RDW Std Deviation 46.5 H (36.4-46.3) fL RDW Coeff of Dion 14.2 (11.5-14.5) % Plt Count 236 (130-400) K/uL MPV 10.2 (7.4-10.4) fL Immature Gran % (Auto) 0.3 % Neut % (Auto) 68.1 % Lymph % (Auto) 19.2 % [place] % (Auto) 9.5 % Eos % (Auto) 2.5 % Baso % (Auto) 0.4 % Neut # (Auto) 5.37 (1.4-6.5) K/uL Lymph # (Auto) 1.51 (1.2-3.4) K/uL [place] # (Auto) 0.75 H (0.11-0.59) K/uL Eos # (Auto) 0.20 (0-0.5) K/uL Baso # (Auto) 0.03 (0-0.2) K/uL Immature Gran # (Auto) 0.02 (0.00-0.02) K/uL Sodium 141 (136-145) mmol/L Potassium 3.2 L (3.5-5.1) mmol/L Chloride 102 (98-107) mmol/L Carbon Dioxide 30 (21-32) mmol/L Anion Gap 9 (3-11) BUN 19 (6-23) mg/dl Creatinine 0.94 (0.6-1.2) mg/dl Est Cr Clr Drug Dosing 50.4 ml/min Est GFR ( Amer) 67.3 ml/min Est GFR (Non-Af Amer) 58.1 ml/min BUN/Creatinine Ratio 20.2 H (10-20) Glucose 125 H (70-99(Fasting)) mg/dl Calcium 9.2 (8.5-10.1) mg/dl Phosphorus 2.7 (2.5-4.9) mg/dl Magnesium 1.8 (1.7-2.4) mg/dl Total Bilirubin 0.5 (0.2-1.0) mg/dl AST 16 (13-39) U/L ALT 14 (7-52) U/L Alkaline Phosphatase 121 H (34-104) U/L Troponin I < 0.03 (0-0.04) ng/ml Total Protein 6.8 (6.0-8.3) gm/dl Albumin 4.1 (3.4-5.0) gm/dl Globulin 2.7 (2.5-4.0) gm/dl Albumin/Globulin Ratio 1.5 (0.9-2) Lipase 37 (11-82) U/L TSH 2.938 (0.300-4.500) uIu/ml Urine Color Urine Appearance (Clear) Urine pH (4.5-7.5) Ur Specific [place] (1.000-1.030) Urine Protein (Negative) Urine Glucose (UA) (Negative) Urine Ketones (Negative) Urine Blood (Negative) Urine Nitrite (Negative) Urine Bilirubin (Negative) Urine Urobilinogen (Negative) Ur Leukocyte Esterase (Negative) Urine WBC (Auto) (0-5) /hpf Urine RBC (Auto) (0-4) /hpf U Hyaline Cast (Auto) (0-5) /lpf U Epithel Cells (Auto) (0-5) /lpf Urine Bacteria (Auto) (Negative) SARS-CoV-2, RNA, NAAT (NEGATIVE) 08/11/21 08/11/21 Range/Units 18:50 21:00 WBC (4.8-10.8) K/uL RBC (4.2-5.4) M/uL Hgb (12.0-16.0) g/dL Hct (37-47) % MCV (80-100) fL MCH (25-34) pg MCHC (32-36) g/dL RDW Std Deviation (36.4-46.3) fL RDW Coeff of [place] (11.5-14.5) % Plt Count (130-400) K/uL MPV (7.4-10.4) fL Immature Gran % (Auto) % Neut % (Auto) % Lymph % (Auto) % [place] % (Auto) % Eos % (Auto) % Baso % (Auto) % Neut # (Auto) (1.4-6.5) K/uL Lymph # (Auto) (1.2-3.4) K/uL [place] # (Auto) (0.11-0.59) K/uL Eos # (Auto) (0-0.5) K/uL Baso # (Auto) (0-0.2) K/uL Immature Gran # (Auto) (0.00-0.02) K/uL Sodium (136-145) mmol/L Potassium (3.5-5.1) mmol/L Chloride (98-107) mmol/L Carbon Dioxide (21-32) mmol/L Anion Gap (3-11) BUN (6-23) mg/dl Creatinine (0.6-1.2) mg/dl Est Cr Clr Drug Dosing ml/min Est GFR ( Amer) ml/min Est GFR (Non-Af Amer) ml/min BUN/Creatinine Ratio (10-20) Glucose (70-99(Fasting)) mg/dl Calcium (8.5-10.1) mg/dl Phosphorus (2.5-4.9) mg/dl Magnesium (1.7-2.4) mg/dl Total Bilirubin (0.2-1.0) mg/dl AST (13-39) U/L ALT (7-52) U/L Alkaline Phosphatase (34-104) U/L Troponin I (0-0.04) ng/ml Total Protein (6.0-8.3) gm/dl Albumin (3.4-5.0) gm/dl Globulin (2.5-4.0) gm/dl Albumin/Globulin Ratio (0.9-2) Lipase (11-82) U/L TSH (0.300-4.500) uIu/ml Urine Color Yellow Urine Appearance Clear (Clear) Urine pH 6.0 (4.5-7.5) Ur Specific [place] 1.020 (1.000-1.030) Urine Protein Negative (Negative) Urine Glucose (UA) Negative (Negative) Urine Ketones Trace H (Negative) Urine Blood Negative (Negative) Urine Nitrite Negative (Negative) Urine Bilirubin Negative (Negative) Urine Urobilinogen Negative (Negative) Ur Leukocyte Esterase 1+ H (Negative) Urine WBC (Auto) 10-30 H (0-5) /hpf Urine RBC (Auto) 0-4 (0-4) /hpf U Hyaline Cast (Auto) 1-5 (0-5) /lpf U Epithel Cells (Auto) >30 H (0-5) /lpf Urine Bacteria (Auto) Negative (Negative) SARS-CoV-2, RNA, NAAT NEGATIVE (NEGATIVE) Administered Medications Hydralazine HCl (Hydralazine Hcl 20 Mg/Ml Vial) 10 mg IV Q4 PRN PRN Reason: Hypertension Stop: 09/10/21 21:30 Last Admin: 08/11/21 22:58 Dose: 10 mg Documented by: [id number] Ceftriaxone Sodium 2,000 mg/ (Dextrose) 70 mls @ 100 mls/hr IV Q24H SHAHNAZ; Pro tocol Stop: 08/16/21 21:59 Last Admin: 08/11/21 23:56 Dose: 100 mls/hr Documented by: [id number] Discontinued Medications Sodium Chloride (Nss) 500 mls @ 999 mls/hr IV .Q31M ONE Stop: 08/11/21 17:29 Last Infusion: 08/11/21 18:08 Dose: 0 mls/hr Documented by: [id number] Admin: 08/11/21 17:36 Dose: 999 mls/hr Documented by: [id number] Acetaminophen (Ofirmev) 1,000 mg in 100 mls @ 400 mls/hr IV NOW STA Stop: 08/11/21 17:13 Last Infusion: 08/11/21 17:53 Dose: 0 mls/hr Documented by: [id number] Admin: 08/11/21 17:36 Dose: 400 mls/hr Documented by: [id number] Ioversol (Optiray 320 100ml) 120 ml IV ONCE ONE Stop: 08/11/21 18:27 Last Admin: 08/11/21 18:28 Dose: 120 ml Documented by: [id number] Labetalol HCl (Labetalol Hcl Iv 5 Mg/Ml 20ml) 10 mg IV NOW STA Stop: 08/11/21 20:42 Last Admin: 08/11/21 21:01 Dose: 10 mg Documented by: [id number] Cosigned by: [id number] Losartan Potassium (Losartan Potassium 25 Mg Tab) 25 mg PO NOW STA Stop: 08/11/21 17:17 Last Admin: 08/11/21 17:49 Dose: 25 mg Documented by: [id number] Losartan Potassium (Losartan Potassium 25 Mg Tab) 25 mg PO NOW STA Stop: 08/11/21 23:33 Last Admin: 08/12/21 00:00 Dose: 25 mg Documented by: [id number] Metoprolol Tartrate (Metoprolol Tartrate 50 Mg Tab) 50 mg PO NOW STA Stop: 08/11/21 21:33 Last Admin: 08/11/21 21:58 Dose: 50 mg Documented by: [id number] Potassium Chloride (Potassium Chloride Crtab 20 Meq Tabcr) 40 meq PO NOW STA Stop: 08/11/21 23:08 Last Admin: 08/11/21 23:21 Dose: 40 meq Documented by: [id number] Imaging Data Radiologist's Impression: Head CT 08/11/21 16:[address] DOSE: HISTORY: headache, vision changes TECHNIQUE: Multiaxial CT images of the head were performed without the use of intravenous contrast. Automated exposure control was utilized for this study. A dose lowering technique was utilized adhering to the principles of ALARA. Comparison: None. Findings: The paranasal sinuses and mastoid air cells are clear. The calvarium and skull base are intact. The ventricles and sulci are within normal limits. There is no mass, hematoma, midline shift, or acute infarct. 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 Impression: No acute intracranial abnormality. ACT 112: Negative or not required by law. Electronically signed by: Efraín Kwon M.D. 08/11/2021 6:38 PM Head CTA 08/11/21 16:59 HEAD & NECK CTA HISTORY: headache, vision changes TECHNIQUE: Multiaxial CT images of the head were performed following the intravenous administration of contrast to evaluate the major cerebral vessels. Multiaxial CT images of the neck were also performed following the intravenous administration of contrast to evaluate the major cervical vessels. Maximum intensity projection images were also obtained. A dose lowering technique was utilized adhering to the principles of ALARA. COMPARISON: Noncontrast head CT 08/11/2021. FINDINGS: The major dural venous sinuses are patent. Moderate calcified plaque within the bilateral carotid siphons. Hypoplastic bilateral P1 segments considered to be a normal variant. Evidence for bilateral lens replacement. Visualized intracranial internal carotid arteries, distal vertebral arteries, and basilar artery are widely patent. There is no significant stenosis, occlusion, or aneurysm seen within the bilateral ACAs, MCAs, or format proofreader. The aortic arch and proximal great vessels are widely patent. There is no significant stenosis, occlusion, or dissection identified within the bilateral common carotid, internal carotid, or vertebral arteries. Poststernotomy changes. Mild calcified plaque within the aortic arch and bilateral carotid bifurcations. There is an aberrant right subclavian artery. There are tortuous bilateral internal carotid arteries. IMPRESSION: 1. No significant stenosis, occlusion, or aneurysm within the [place]. 2. No significant stenosis, occlusion, or dissection identified within the carotid or vertebral arteries. ACT 112: Negative or not required by law. Electronically signed by: Efraín Kwon M.D. 08/11/2021 6:42 PM Neck CTA 08/11/21 16:59 HEAD & NECK CTA HISTORY: headache, vision changes TECHNIQUE: Multiaxial CT images of the head were performed following the intravenous administration of contrast to evaluate the major cerebral vessels. Multiaxial CT images of the neck were also performed following the intravenous administration of contrast to evaluate the major cervical vessels. Maximum intensity projection images were also obtained. A dose lowering technique was utilized adhering to the principles of ALARA. COMPARISON: Noncontrast head CT 08/11/2021. FINDINGS: The major dural venous sinuses are patent. Moderate calcified plaque within the bilateral carotid siphons. Hypoplastic bilateral P1 segments considered to be a normal variant. Evidence for bilateral lens replacement. Visualized intracranial internal carotid arteries, distal vertebral arteries, and basilar artery are widely patent. There is no significant stenosis, occlusion, or aneurysm seen within the bilateral ACAs, MCAs, or format proofreader. The aortic arch and proximal great vessels are widely patent. There is no significant stenosis, occlusion, or dissection identified within the bilateral common carotid, internal carotid, or vertebral arteries. Poststernotomy changes. Mild calcified plaque within the aortic arch and bilateral carotid bifurcations. There is an aberrant right subclavian artery. There are tortuous bilateral int ernal carotid arteries. IMPRESSION: 1. No significant stenosis, occlusion, or aneurysm within the [place]. 2. No significant stenosis, occlusion, or dissection identified within the carotid or vertebral arteries. ACT 112: Negative or not required by law. Electronically signed by: Efraín Kwon M.D. 08/11/2021 6:42 PM Chest X-Ray 08/11/21 17:01 XR chest 1V portable HISTORY: Atypical Chest Pain COMPARISON: Chest 11/14/2020. FINDINGS: No pneumothorax. No pleural effusions. The cardiac silhouette remains mildly enlarged. Small linear scarlike density seen within the bilateral mid lung zones. Otherwise, no new focal lung consolidations to suggest pneumonia. Mild central pulmonary vascular congestion without overt edema. This remains unchanged. Degenerative changes again noted within the shoulders.. Poststernotomy changes and an aortic valve stent are noted. IMPRESSION: Cardiomegaly with mild central pulmonary vascular congestion without overt edema. This is similar to the prior study. ACT 112: Negative or not required by law. Electronically signed by: Efraín Kwon M.D. 08/11/2021 5:53 PM Discharge Plan Visit Data Chief Complaint: Headache Stated Complaint: HEADACHE, PAIN IN EYES ED Provider: Jon Pena Discharge Problem: Hypertensive urgency, Headache, Hypokalemia Patient Disposition: Admitted As Inpatient Discharge Instructions Interventions: ED Discharge Assessment Last Done: 08/11/21 22:13 Discharge Problem: Headache Qualifiers: Headache type: unspecified Headache chronicity pattern: acute headache Intractability: not intractable Qualified Code(s): R51.9 - Headache, unspecified
[2021-08-11 17:47] LABS: Basophils # (auto) 0.03 K/uL (0-0.2); Basophils % (auto) 0.4 %; Eosinophils % (auto) 2.5 %; Hematocrit (blood only) 42.4 % (37-47); Hemoglobin 14.3 g/dL (12.0-16.0); Immature Granulocytes # (auto) 0.02 K/uL (0.00-0.02); Immature Granulocytes % (auto) 0.3 %; Lymphocytes # (auto) 1.51 K/uL (1.2-3.4); Lymphocytes % (auto) 19.2 %; Mean Corpuscular Hemoglobin 30.5 pg (25-34); Mean Corpuscular Hgb Conc 33.7 g/dL (32-36); Mean Corpuscular Volume 90.4 fL (80-100); Mean Platelet Volume 10.2 fL (7.4-10.4); Monocytes # (auto) 0.75 K/uL (0.11-0.59); Monocytes % (auto) 9.5 %; Neutrophils # (auto) 5.37 K/uL (1.4-6.5); Neutrophils % (auto) 68.1 %; Platelet Count 236 K/uL (130-400); RDW Coefficient of Variation 14.2 % (11.5-14.5); RDW Standard Deviation 46.5 fL (36.4-46.3); Red Blood Count 4.69 M/uL (4.2-5.4); White Blood Count 7.88 K/uL (4.8-10.8)
--- NOTE | 2021-08-11 17:54 | XRay Report ---
XR chest 1V portable HISTORY: Atypical Chest Pain COMPARISON: Chest 11/14/2020. FINDINGS: No pneumothorax. No pleural effusions. The cardiac silhouette remains mildly enlarged. Smal l linear scarlike density seen within the bilateral mid lung zones. Otherwise, no new focal lung cons olidations to suggest pneumonia. Mild central pulmonary vascular congestion without overt edema. This remains unchanged. Degenerative changes again noted within the shoulders.. Poststernotomy changes an d an aortic valve stent are noted. IMPRESSION: Cardiomegaly with mild central pulmonary vascular congestion without overt edema. This is similar to the prior study. ACT 112: Negative or not required by law. Electronically signed by: Efraín Kwon M.D. 08/11/2021 5:53 PM
[2021-08-11 18:11] LABS: Troponin I < 0.03 ng/ml (0-0.04)
[2021-08-11 18:12] LABS: Alanine Aminotransferase 14 U/L (7-52); Albumin Globulin Ratio 1.5 (0.9-2); Albumin Level 4.1 gm/dl (3.4-5.0); Alkaline Phosphatase 121 U/L (34-104); Anion Gap 9 (3-11); Aspartate Aminotransferase 16 U/L (13-39); BUN Creatinine Ratio 20.2 (10-20); Bilirubin,Total 0.5 mg/dl (0.2-1.0); Blood Urea Nitrogen 19 mg/dl (6-23); Calcium 9.2 mg/dl (8.5-10.1); Carbon Dioxide 30 mmol/L (21-32); Chloride 102 mmol/L (98-107); Creatinine Clr Calc Pharmacy 50.4 ml/min; Est GFR (African American) 67.3 ml/min; Est GFR (Non-African American) 58.1 ml/min; Globulin 2.7 gm/dl (2.5-4.0); Glucose 125 mg/dl (70-99(Fasting)); Lipase 37 U/L (11-82); Magnesium 1.8 mg/dl (1.7-2.4); Phosphorus 2.7 mg/dl (2.5-4.9); Potassium 3.2 mmol/L (3.5-5.1); Sodium 141 mmol/L (136-145); Total Protein 6.8 gm/dl (6.0-8.3)
[2021-08-11] MEDS ORDERED: OPTIRAY 320 100ml IV ONE (18:26)
--- NOTE | 2021-08-11 18:40 | CT Scan Report ---
HEAD CT NONCONTRAST CT DOSE: HISTORY: headache, vision changes TECHNIQUE: Multiaxial CT images of the head were performed without the use of intravenous contrast. A utomated exposure control was utilized for this study. A dose lowering technique was utilized adheri ng to the principles of ALARA. Comparison: None. Findings: The paranasal sinuses and mastoid air cells are clear. The calvarium and skull base are int act. The ventricles and sulci are within normal limits. There is no mass, hematoma, midline shift, or acute infarct. 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 Impression: No acute intracranial abnormality. ACT 112: Negative or not required by law. Electronically signed by: Efraín Kwon M.D. 08/11/2021 6:38 PM
--- NOTE | 2021-08-11 18:45 | CT Scan Report ---
HEAD & NECK CTA HISTORY: headache, vision changes TECHNIQUE: Multiaxial CT images of the head were performed following the intravenous administration o f contrast to evaluate the major cerebral vessels. Multiaxial CT images of the neck were also perform ed following the intravenous administration of contrast to evaluate the major cervical vessels. Maxim um intensity projection images were also obtained. A dose lowering technique was utilized adhering to the principles of ALARA. COMPARISON: Noncontrast head CT 08/11/2021. FINDINGS: The major dural venous sinuses are patent. Moderate calcified plaque within the bilateral carotid sip hons. Hypoplastic bilateral P1 segments considered to be a normal variant. Evidence for bilateral emily s replacement. Visualized intracranial internal carotid arteries, distal vertebral arteries, and basi lar artery are widely patent. There is no significant stenosis, occlusion, or aneurysm seen within th e bilateral ACAs, MCAs, or brick stacker. The aortic arch and proximal great vessels are widely patent. There is no significant stenosis, occ lusion, or dissection identified within the bilateral common carotid, internal carotid, or vertebral arteries. Poststernotomy changes. Mild calcified plaque within the aortic arch and bilateral carotid bifurcations. There is an aberrant right subclavian artery. There are tortuous bilateral internal car otid arteries. IMPRESSION: 1. No significant stenosis, occlusion, or aneurysm within the [place]. 2. No significant stenosis, occlusion, or dissection identified within the carotid or vertebral arter ies. ACT 112: Negative or not required by law. Electronically signed by: Efraín Kwon M.D. 08/11/2021 6:42 PM
--- NOTE | 2021-08-11 18:45 | CT Scan Report ---
HEAD & NECK CTA HISTORY: headache, vision changes TECHNIQUE: Multiaxial CT images of the head were performed following the intravenous administration o f contrast to evaluate the major cerebral vessels. Multiaxial CT images of the neck were also perform ed following the intravenous administration of contrast to evaluate the major cervical vessels. Maxim um intensity projection images were also obtained. A dose lowering technique was utilized adhering to the principles of ALARA. COMPARISON: Noncontrast head CT 08/11/2021. FINDINGS: The major dural venous sinuses are patent. Moderate calcified plaque within the bilateral carotid sip hons. Hypoplastic bilateral P1 segments considered to be a normal variant. Evidence for bilateral emily s replacement. Visualized intracranial internal carotid arteries, distal vertebral arteries, and basi lar artery are widely patent. There is no significant stenosis, occlusion, or aneurysm seen within th e bilateral ACAs, MCAs, or paper sales manager. The aortic arch and proximal great vessels are widely patent. There is no significant stenosis, occ lusion, or dissection identified within the bilateral common carotid, internal carotid, or vertebral arteries. Poststernotomy changes. Mild calcified plaque within the aortic arch and bilateral carotid bifurcations. There is an aberrant right subclavian artery. There are tortuous bilateral internal car otid arteries. IMPRESSION: 1. No significant stenosis, occlusion, or aneurysm within the [place]. 2. No significant stenosis, occlusion, or dissection identified within the carotid or vertebral arter ies. ACT 112: Negative or not required by law. Electronically signed by: Efraín Kwon M.D. 08/11/2021 6:42 PM
[2021-08-11 19:11] LABS: Appearance Urine Clear (Clear); Bacteria Urine Automated Negative (Negative); Bilirubin Urine Negative (Negative); Blood Urine Negative (Negative); Color Urine Yellow; Epithelial Cell Urine Auto >30 /lpf (0-5); Glucose Urine UA Negative (Negative); Ketones Urine Trace (Negative); Leukocyte Esterase Urine 1+ (Negative); Nitrite Urine Negative (Negative); Protein Urine Negative (Negative); RBC Urine Automated 0-4 /hpf (0-4); Urobilinogen Urine Negative (Negative)
[2021-08-11] MEDS ORDERED: LABETALOL HCL IV 5 MG/ML 20ML IV STA (20:41)
--- NOTE | 2021-08-11 21:14 | History & Physical Report ---
Date of Service August 11, 2021 Assessment & Plan (1) Hypertensive urgency: (2) Hypokalemia: (3) GERD (gastroesophageal reflux disease): (4) Hypothyroidism: (5) Moderate obstructive sleep apnea: Plan: Hypertensive urgency- due to skipping her morning meds. BP 205/89 on presentation. Given iv labetalol and losartan in the ED with some improvement and currently symptoms resolved. Resume lopressor. Will have iv hydralazine q4hr prn with hold parameters. Aim to gradually bring down the BP. Hypokalemia- repleted, recheck in am Hypothyroidism- continue synthroid GERD- Continue PPI UTI- UA abnormal concerning for UTI. Will start on rocephin pending clx results. JUDE- on CPAP S/p AVR DM-2- on glipizide at home. Hold for now. Will have SSI here. Check A1c in am. History of Present Illness Chief Complaint: Headache, visual changes Primary Care Provider: Peggy Reyes MD 76 year old female with h/o HTN, CAD, JUDE, CKD, S/p AVR, GERD, Hypothyroidism presented to the ED for evaluation of acute onset right frontal headache which was preceded by seeing transient spots in bilateral eyes. She states she forgot to take her blood pressure this morning as she was being rushed. Around 2:30 pm, while sitting in the car she saw spots in her both eyes. Then she had right sided headache. She came to the ED. In the ED, BP in 200s/80s. CT head and CTA head and neck with no acute abnormality. Labs unremarkable except for mild hypokalemia. Given iv labetalol x1 and home losartan in the ED. Hospitalist service was consulted for admission and further management. During my encounter, she feels fine. Denies any of those residual symptoms. No nausea, vomiting, fever or chills. States her blood pressure is normally in 130s when she goes sees her PCPs. Allergies Allergy/AdvReac Type Severity Reaction Status Date / Time erythromycin base AdvReac Intermediate GI UPSET Verified 08/11/21 17:48 AND CRAMPING tetracycline AdvReac Intermediate GI UPSET Verified 08/11/21 17:48 Home Medications Medication Instructions Recorded Confirmed Type ascorbate calcium (vitamin C) 500 500 mg PO DAILY 12/17/18 08/11/21 History mg tablet aspirin 81 mg tablet,delayed 81 mg PO DAILY 12/17/18 08/11/21 History release (Adult Low Dose Aspirin) cyanocobalamin (vitamin B-12) 1,000 mcg PO DAILY 12/17/18 08/11/21 History 1,000 mcg capsule ipratropium 0.5 mg-albuterol 3 mg 3 ml INH QID PRN 12/17/18 08/11/21 History (2.5 mg base)/3 mL nebulization soln levothyroxine 75 mcg capsule 75 mcg PO DAILYBB 12/17/18 08/11/21 History loratadine 10 mg tablet 10 mg PO DAILY 12/17/18 08/11/21 History magnesium oxide 400 mg PO DAILY tab 12/17/18 08/11/21 History metoprolol tartrate 50 mg tablet 50 mg PO .COMPLEX 12/17/18 08/11/21 History nitroglycerin 0.4 mg sublingual 0.4 mg SL Q5M PRN 12/17/18 08/11/21 History tablet potassium chloride 10 mEq 10 meq PO BID 12/17/18 08/11/21 History capsule,extended release torsemide 100 mg tablet 50 mg PO DAILY 12/17/18 08/11/21 History ezetimibe 10 mg tablet 10 mg PO DAILY 12/26/18 08/11/21 History CPAP Machine #1 ea 02/13/19 07/02/19 Rx fluticasone propionate 50 2 spray INTRANASAL HS 07/02/19 08/11/21 History mcg/actuation nasal spray,suspension amoxicillin 500 mg capsule 2,000 mg PO DIRECTED PRN 11/14/20 08/11/21 History atorvastatin 40 mg tablet 40 mg PO DAILY 11/14/20 08/11/21 History fluticasone 250 mcg-salmeterol 50 1 ea INHALATION BID 11/14/20 08/11/21 History mcg/dose blistr powdr for inhalation losartan 25 mg tablet 25 mg PO DAILY 11/14/20 08/11/21 History omeprazole magnesium 20 mg 20 mg PO DAILY 11/14/20 08/11/21 History tablet,delayed release vit C,E,zinc,copper-rnieh2v 250 1 cap PO DAILY 11/14/20 08/11/21 History mg-lutein 5 mg-zeaxanthin 1 mg capsule (Ocuvite Adult 50 Plus) duloxetine 20 mg capsule,delayed 20 mg PO DAILY 08/11/21 08/11/21 History release glipizide 2.5 mg tablet, extended 2.5 mg PO DAILYBB 08/11/21 08/11/21 History release 24 hr Past Med/Surg History Medical History Asthma CAD (coronary artery disease) GERD (gastroesophageal reflux disease) History of aortic stenosis HLD (hyperlipidemia) HTN (hypertension) Hypothyroidism Moderate obstructive sleep apnea Myocardial infarction Nocturnal hypoxemia Obesity PLMD (periodic limb movement disorder) Renal insufficiency Respiratory failure Surgical History H/O aortic valve replacement H/O: hysterectomy History of left heart catheterization (LHC) "CORONARY ARTERY DILATION, [place] 05/2008 left PDA" S/P hip replacement S/P T&A (status post tonsillectomy and adenoidectomy) Family History Other Aortic stenosis Diabetes Social History Smoking Status: Never smoker Tobacco Type: Cigarettes Hx Alcohol Use: Yes Preferred Language: Com[place] marital status: Current Living Situation: Spouse current occupational status: retired Feels Safe at Home: Yes Review of Systems Review of Systems: All systems reviewed & are unremarkable except as noted in Subjective Physical Exam Physical Exam: General: Lying comfortably in bed, not in distress, on room air HEENT: EOMI, SHANIA, MMM Chest: Clear breath sounds bilaterally, no wheezes or crackles CVS: Regular rate and rhythm, normal heart sounds, no murmur Abdomen: Soft, non tender, not distended, normal bowel sounds Neuro: Awake, alert, oriented, conversing well, non focal Extremities: No cyanosis, clubbing, bilateral pedal edema, on compression stocking Results & Data Results & Data ([facility]) Vital Signs (Past 12 Hours) Vital Signs Temp Pulse Pulse Resp BP BP Pulse Ox 08/11/21 20:00 68 20 178/98 H 97 08/11/21 18:51 71 20 202/102 H 97 08/11/21 17:01 74 20 184/93 H 95 08/11/21 16:39 36.4 C L 79 18 205/89 H 92 Laboratory Results Short CBC 08/11/21 Range/Units 17:30 WBC 7.88 (4.8-10.8) K/uL Hgb 14.3 (12.0-16.0) g/dL Hct 42.4 (37-47) % Plt Count 236 (130-400) K/uL BMP 08/11/21 17:30 Sodium 141 Potassium 3.2 L Chloride 102 Carbon Dioxide 30 BUN 19 Creatinine 0.94 Glucose 125 H Calcium 9.2 Cardiac Enzymes 08/11/21 Range/Units 17:30 Troponin I < 0.03 (0-0.04) ng/ml Liver Function 08/11/21 Range/Units 17:30 Total Bilirubin 0.5 (0.2-1.0) mg/dl AST 16 (13-39) U/L ALT 14 (7-52) U/L Alkaline Phosphatase 121 H (34-104) U/L Albumin 4.1 (3.4-5.0) gm/dl Urine 08/11/21 Range/Units 18:50 Urine Color Yellow Urine Appearance Clear (Clear) Urine pH 6.0 (4.5-7.5) Ur Specific [place] 1.020 (1.000-1.030) Urine Protein Negative (Negative) Urine Glucose (UA) Negative (Negative) Medications Administered Current Inpatient Medications Hydralazine HCl (Hydralazine Hcl 20 Mg/Ml Vial) 10 mg IV Q4 PRN PRN Reason: Hypertension Stop: 09/10/21 21:30 Metoprolol Tartrate (Metoprolol Tartrate 50 Mg Tab) 50 mg PO HS SHAHNAZ Stop: 09/11/21 20:59
[2021-08-11] MEDS ORDERED: METOPROLOL TARTRATE 50 MG TAB PO STA (21:32)
[2021-08-11] MEDS ORDERED: GLUCOSE 10 TABS/TUBE PO PRN (22:37)
[2021-08-11] MEDS ORDERED: GLUCOSE 40% GEL 15 GM TUBE PO PRN (22:37)
[2021-08-11] MEDS ORDERED: CARBOHYDRATES FOR HYPOGLYCEMIA PO PRN (22:37)
[2021-08-11] MEDS ORDERED: DEXTROSE 50% 50 ML SYRINGE IV PRN (22:37)
[2021-08-11] MEDS ORDERED: GLUCAGON FOR INJ 1 MG VIAL SQ PRN (22:37)
[2021-08-11] MEDS ORDERED: ALBUT/IPRATROP 3MG/0.5MG NEB 3 ML VIAL INH PRN (22:37)
[2021-08-11] MEDS: hydrALAZINE HCL 20 MG/ML VIAL IV PRN (22:58)
[2021-08-11] MEDS ORDERED: CALCIUM CARBONATE 500 MG CHEWABLE TAB PO PRN (23:07)
[2021-08-11] MEDS ORDERED: MAGNESIUM SULFATE / D5W 1 GM/100 ML BAG IV ONE (23:07)
[2021-08-11] MEDS ORDERED: POTASSIUM CHLORIDE CRTAB 20 MEQ TABCR PO STA (23:07)
[2021-08-11] MEDS: cefTRIAXone SODIUM 2,000 MG in DEXTROSE 5% 50 ML IV SCH (23:56)
[2021-08-12] MEDS: hydrALAZINE HCL 20 MG/ML VIAL IV PRN (05:35)
[2021-08-12] MEDS: LEVOTHYROXINE SODIUM 75 MCG TABLET PO SCH (05:36)
[2021-08-12 07:21] LABS: Basophils # (auto) 0.03 K/uL (0-0.2); Basophils % (auto) 0.4 %; Eosinophils # (auto) 0.17 K/uL (0-0.5); Eosinophils % (auto) 2.2 %; Hematocrit (blood only) 43.6 % (37-47); Hemoglobin 14.4 g/dL (12.0-16.0); Immature Granulocytes # (auto) 0.01 K/uL (0.00-0.02); Immature Granulocytes % (auto) 0.1 %; Lymphocytes # (auto) 0.79 K/uL (1.2-3.4); Lymphocytes % (auto) 10.1 %; Mean Corpuscular Hemoglobin 29.9 pg (25-34); Mean Corpuscular Volume 90.6 fL (80-100); Mean Platelet Volume 10.5 fL (7.4-10.4); Monocytes # (auto) 0.76 K/uL (0.11-0.59); Monocytes % (auto) 9.7 %; Neutrophils # (auto) 6.07 K/uL (1.4-6.5); Neutrophils % (auto) 77.5 %; Platelet Count 241 K/uL (130-400); RDW Coefficient of Variation 14.2 % (11.5-14.5); RDW Standard Deviation 47.5 fL (36.4-46.3); Red Blood Count 4.81 M/uL (4.2-5.4); White Blood Count 7.83 K/uL (4.8-10.8)
[2021-08-12 07:39] LABS: BUN Creatinine Ratio 15.7 (10-20); Calcium 9.2 mg/dl (8.5-10.1); Creatinine Clr Calc Pharmacy 57.5 ml/min; Est GFR (African American) 78.3 ml/min; Est GFR (Non-African American) 67.5 ml/min; Potassium 3.7 mmol/L (3.5-5.1)
[2021-08-12] MEDS ORDERED: LOSARTAN POTASSIUM 25 MG TAB PO SCH (09:00)
[2021-08-12] MEDS: DULoxetine HCL 20 MG CAP PO SCH (09:09)
[2021-08-12] MEDS: LOSARTAN POTASSIUM 50 MG TAB PO SCH (09:09)
[2021-08-12] MEDS: TORSEMIDE 10 MG TAB PO SCH (09:09)
[2021-08-12] MEDS: POTASSIUM CHLORIDE 10 MEQ TABCR PO SCH ×2 (09:10→17:21)
[2021-08-12] MEDS: ASPIRIN 81 MG ECTAB PO SCH (09:10)
[2021-08-12] MEDS: LORATADINE 10 MG TAB PO SCH (09:10)
[2021-08-12] MEDS: PANTOprazole 40 MG TAB PO SCH (09:10)
[2021-08-12] MEDS: EZETIMIBE 10 MG TABLET PO SCH (09:10)
[2021-08-12] MEDS: ATORVASTATIN 40 MG TAB PO SCH (09:10)
[2021-08-12] MEDS: MAGNESIUM OXIDE 400 MG TAB PO SCH (09:11)
[2021-08-12] MEDS: INSULIN ASPART PER UNIT SC SCH ×4 (09:11→20:38)
[2021-08-12] MEDS: FLUTICASONE/VILANTEROL 100/25MCG 14 PUFFS/INHALER INH SCH (09:11)
[2021-08-12 10:26] LABS: Estimated Average Glucose 140 mg/dl; Hemoglobin A1C 6.5 % (4.5-5.6)
--- NOTE | 2021-08-12 14:51 | Hospitalist Progress Note ---
Date of Service August 12, 2021 Assessment & Plan (1) Hypertensive urgency: (2) Hypokalemia: (3) GERD (gastroesophageal reflux disease): (4) Hypothyroidism: (5) Moderate obstructive sleep apnea: Plan: Hypertensive urgency Likely due to skipping antihypertensives at home -CT Head:No acute intracranial abnormality. -CTA Head/Neck:No significant stenosis, occlusion, or aneurysm within the [place]. No significant stenosis, occlusion, or dissection identified within the carotid or vertebral arteries. Losartan increased to 50mg daily Continue Metoprolol 50mg HS Also on Torsemide IV Hydralazine PRN Monitor Abnormal UA R/O UTI Urine Culture pending Empirically on Rocephin Hypokalemia Replete and monitor Hypothyroidism TSH Normal Continue Levothyroxine GERD Continue PPI JUDE on CPAP S/p AVR Continue home meds DM II HbA1C:6.5 on ISS Monitor BGs DVT Px: Heparin SQ Code Status Full Code Admission and Anticipated Discharge Date Admission Date: August 11, 2021 Subjective Patient is seen and examined at bedside States feeling much better today Headache resolved Denies chest pain, dyspnea, dizziness, nausea, abd pain, dysuria Review of Systems Review of Systems: All systems reviewed & are unremarkable except as noted in Subjective Physical Exam Physical Exam: Physical Exam: Vitals signs as noted above General Appearance:Obese, no apparent distress Head: normocephalic, Atraumatic Eyes: normal inspection, EOMI Neck: supple, Trachea midline Respiratory/Chest: Normal breath sounds, CTA, No accessory muscle use Cardiovascular: S1, S2, +murmur Abdomen/GI:Soft, Non tender, Bowel sounds present Extremities/Musculoskeletal:normal inspection, 1-2+ B/L LE edema Neurologic/Psych:AAOX3, grossly no focal neurological deficits Skin: normal color, warm Results & Data Results & Data ([facility]) Vital Signs (Past 12 Hours) Vital Signs Temp Pulse Pulse Resp BP Pulse Ox 08/12/21 10:35 36.8 C 100 H 18 123/70 93 08/12/21 08:00 78 08/12/21 07:30 36.9 C 86 19 167/76 H 95 08/12/21 05:58 171/82 H 08/12/21 05:27 36.6 C 82 16 181/75 H 91 Laboratory Results Short CBC 08/11/21 08/12/21 Range/Units 17:30 06:54 WBC 7.88 7.83 (4.8-10.8) K/uL Hgb 14.3 14.4 (12.0-16.0) g/dL Hct 42.4 43.6 (37-47) % Plt Count 236 241 (130-400) K/uL BMP 08/11/21 08/12/21 17:30 06:54 Sodium 141 140 Potassium 3.2 L 3.7 Chloride 102 105 Carbon Dioxide 30 27 BUN 19 13 Creatinine 0.94 0.83 Glucose 125 H 117 H Calcium 9.2 9.2 Cardiac Enzymes 08/11/21 Range/Units 17:30 Troponin I < 0.03 (0-0.04) ng/ml Liver Function 08/11/21 Range/Units 17:30 Total Bilirubin 0.5 (0.2-1.0) mg/dl AST 16 (13-39) U/L ALT 14 (7-52) U/L Alkaline Phosphatase 121 H (34-104) U/L Albumin 4.1 (3.4-5.0) gm/dl Urine 08/11/21 Range/Units 18:50 Urine Color Yellow Urine Appearance Clear (Clear) Urine pH 6.0 (4.5-7.5) Ur Specific [place] 1.020 (1.000-1.030) Urine Protein Negative (Negative) Urine Glucose (UA) Negative (Negative)
[2021-08-12] MEDS: cefTRIAXone SODIUM 2,000 MG in DEXTROSE 5% 50 ML IV SCH (20:37)
[2021-08-12] MEDS: HEPARIN SOD 5,000 UNIT/0.5 ML VIAL SQ SCH (20:38)
[2021-08-12] MEDS ORDERED: FLUTICASONE PROPIONATE NA SPR 16 GM BTL SCH (21:00)
[2021-08-12] MEDS ORDERED: METOPROLOL TARTRATE 50 MG TAB PO SCH (21:00)
[2021-08-13] MEDS: LEVOTHYROXINE SODIUM 75 MCG TABLET PO SCH (05:43)
[2021-08-13 08:11] LABS: BUN Creatinine Ratio 17.6 (10-20); Calcium 8.8 mg/dl (8.5-10.1); Creatinine Clr Calc Pharmacy 51.7 ml/min; Est GFR (Non-African American) 60.4 ml/min; Potassium 3.5 mmol/L (3.5-5.1)
[2021-08-13] MEDS: INSULIN ASPART PER UNIT SC SCH ×2 (08:30→11:43)
[2021-08-13] MEDS: POTASSIUM CHLORIDE 10 MEQ TABCR PO SCH (09:30)
[2021-08-13] MEDS: HEPARIN SOD 5,000 UNIT/0.5 ML VIAL SQ SCH (09:31)
[2021-08-13] MEDS: MAGNESIUM OXIDE 400 MG TAB PO SCH (09:31)
[2021-08-13] MEDS: LOSARTAN POTASSIUM 50 MG TAB PO SCH (09:31)
[2021-08-13] MEDS: LORATADINE 10 MG TAB PO SCH (09:31)
[2021-08-13] MEDS: DULoxetine HCL 20 MG CAP PO SCH (09:32)
[2021-08-13] MEDS: PANTOprazole 40 MG TAB PO SCH (09:33)
[2021-08-13] MEDS: FLUTICASONE/VILANTEROL 100/25MCG 14 PUFFS/INHALER INH SCH (09:33)
[2021-08-13] MEDS: ASPIRIN 81 MG ECTAB PO SCH (09:33)
[2021-08-13] MEDS: TORSEMIDE 10 MG TAB PO SCH (09:41)
[2021-08-13] MEDS: ATORVASTATIN 40 MG TAB PO SCH (09:42)
[2021-08-13] MEDS: EZETIMIBE 10 MG TABLET PO SCH (09:42)
[2021-08-13] MEDS ORDERED: POTASSIUM CHLORIDE CRTAB 20 MEQ TABCR PO STA (12:11)
--- NOTE | 2021-08-13 12:21 | Electrocardiogram Report ---
Test Reason : Blood Pressure : / mmHG Vent. Rate : 069 BPM Atrial Rate : 069 BPM P-R Int : 182 ms QRS Dur : 130 ms QT Int : 452 ms P-R-T Axes : 077 261 094 degrees QTc Int : 484 ms Normal sinus rhythm Left bundle branch block Abnormal ECG When compared with ECG of 14-NOV-2020 17:48, No significant change was found Confirmed by Noel Almaguer ([id number]) on 08/13/2021 12:21:06 PM Referred By: REFERRED SELF Confirmed By:Noel Almaguer
--- NOTE | 2021-08-13 12:29 | Hospitalist Progress Note ---
Date of Service August 13, 2021 Assessment & Plan (1) Hypertensive urgency: (2) Hypokalemia: (3) GERD (gastroesophageal reflux disease): (4) Hypothyroidism: (5) Moderate obstructive sleep apnea: Plan: Hypertensive urgency Likely due to skipping antihypertensives at home -CT Head:No acute intracranial abnormality. -CTA Head/Neck:No significant stenosis, occlusion, or aneurysm within the [place]. No significant stenosis, occlusion, or dissection identified within the carotid or vertebral arteries. Losartan increased to 50mg daily Continue Metoprolol 50mg HS Also on Torsemide IV Hydralazine PRN Monitor Asymptomatic Bacteruria Urine Culture: Group B beta Strep: 50,000 colonies Empirically received Rocephin Hypokalemia Replete and monitor Hypothyroidism TSH Normal Continue Levothyroxine GERD Continue PPI JUDE on CPAP S/p AVR Continue home meds DM II HbA1C:6.5 on ISS Monitor BGs DVT Px: Heparin SQ Code Status Full Code Admission and Anticipated Discharge Date Admission Date: August 11, 2021 Subjective Patient is seen and examined at bedside No new complaints Had 8 seconds of PAT today, asymptomatic Denies chest pain, dyspnea, dizziness, nausea, abd pain, dysuria Eager to get discharged Review of Systems Review of Systems: All systems reviewed & are unremarkable except as noted in Subjective Physical Exam Physical Exam: Physical Exam: Vitals signs as noted above General Appearance:Obese, no apparent distress Head: normocephalic, Atraumatic Eyes: normal inspection, EOMI Neck: supple, Trachea midline Respiratory/Chest: Normal breath sounds, CTA, No accessory muscle use Cardiovascular: S1, S2, +murmur Abdomen/GI:Soft, Non tender, Bowel sounds present Extremities/Musculoskeletal:normal inspection, 1-2+ B/L LE edema Neurologic/Psych:AAOX3, grossly no focal neurological deficits Skin: normal color, warm Results & Data Results & Data ([facility]) Vital Signs (Past 12 Hours) Vital Signs Temp Pulse Pulse Resp BP Pulse Ox 08/13/21 11:14 36.5 C 76 16 145/75 H 93 08/13/21 08:55 93 08/13/21 08:00 85 08/13/21 07:06 36.3 C L 90 18 152/83 H 90 08/13/21 03:25 36.8 C 79 20 176/91 H 94 Laboratory Results BMP 08/13/21 07:17 Sodium 141 Potassium 3.5 Chloride 106 Carbon Dioxide 28 BUN 16 Creatinine 0.91 Glucose 131 H Calcium 8.8
[2021-08-13] MEDS ORDERED: METOPROLOL TARTRATE 25 MG TAB PO ONE (12:48)
--- NOTE | 2021-08-13 12:48 | Discharge Summary ---
Date of Service August 13, 2021 Admission HPI Per Admitting Provider 76 year old female with h/o HTN, CAD, JUDE, CKD, S/p AVR, GERD, Hypothyroidism presented to the ED for evaluation of acute onset right frontal headache which was preceded by seeing transient spots in bilateral eyes. She states she forgot to take her blood pressure this morning as she was being rushed. Around 2:30 pm, while sitting in the car she saw spots in her both eyes. Then she had right sided headache. She came to the ED. In the ED, BP in 200s/80s. CT head and CTA head and neck with no acute abnormality. Labs unremarkable except for mild hypokalemia. Given iv labetalol x1 and home losartan in the ED. Hospitalist service was consulted for admission and further management. During my encounter, she feels fine. Denies any of those residual symptoms. No nausea, vomiting, fever or chills. States her blood pressure is normally in 130s when she goes sees her PCPs. Admission Exam Per Admitting Provider Physical Exam Physical Exam: General: Lying comfortably in bed, not in distress, on room air HEENT: EOMI, SHANIA, MMM Chest: Clear breath sounds bilaterally, no wheezes or crackles CVS: Regular rate and rhythm, normal heart sounds, no murmur Abdomen: Soft, non tender, not distended, normal bowel sounds Neuro: Awake, alert, oriented, conversing well, non focal Extremities: No cyanosis, clubbing, bilateral pedal edema, on compression stocking Principal Diagnosis Hypertensive urgency Hypokalemia Discharge Data Allergies Allergy/AdvReac Type Severity Reaction Status Date / Time erythromycin base AdvReac Intermediate GI UPSET Verified 08/11/21 17:48 AND CRAMPING tetracycline AdvReac Intermediate GI UPSET Verified 08/11/21 17:48 Consultations 08/11/21 20:42 ED Decision to Admit Stat Ordered Studies 08/11/21 16:59 CT angio head w con Stat CT angio neck with con Stat CT head/brain wo con Stat Hospital Course (1) Hypertensive urgency: (2) Hypokalemia: (3) GERD (gastroesophageal reflux disease): (4) Hypothyroidism: (5) Moderate obstructive sleep apnea: Hypertensive urgency Likely due to skipping antihypertensives at home -CT Head:No acute intracranial abnormality. -CTA Head/Neck:No significant stenosis, occlusion, or aneurysm within the [place]. No significant stenosis, occlusion, or dissection identified within the carotid or vertebral arteries. Losartan increased to 50mg daily Continue Metoprolol 50mg HS Also on Torsemide IV Hydralazine PRN Monitor Asymptomatic Bacteruria Urine Culture: Group B beta Strep: 50,000 colonies Empirically received Rocephin Hypokalemia Replete and monitor Hypothyroidism TSH Normal Continue Levothyroxine GERD Continue PPI JUDE on CPAP S/p AVR Continue home meds DM II HbA1C:6.5 on ISS Monitor BGs DVT Px: Heparin SQ Code Status Full Code Total Time Total Time Spent Total Time Spent (In Minutes): 39 minutes Discharge Plan Discharge Items Patient Disposition: Home - Self-Care Reason For Visit: HYPERTENSIVE URGENCY Discharge Diagnosis: Hypertensive urgency Hypokalemia Activity: Per Instructions section Exercise/Sports: Gradually increase as tolerated Non-emergency contact: Primary Care Provider Call non-emergency contact if: you have any medication questions, your symptoms worsen, your pain is concerning for you and you have a fever Follow-up/Referrals: Peggy Reyes MD [Primary Care Provider] - Diet: Carb Consistent or DM2 Addtl Attending Provider Instructions: Follow-up with your primary care physician in 1 week Medication Changes --Your Losartan dose is increased to 50mg daily --Take Cefuroxime 250mg twice a day for 1 more day for suspected urine infection. Seek immediate medical attention if your symptoms reoccur or worsen Please take all medications as instructed on discharge list below. Please call if you have any questions or problems. You can reach a [facility] hospitalist on duty at [facility] 24 hours a day by calling [phone] Pending Studies at Discharge: No Stand-Alone Forms: My [facility], Smoking Cessation Medications and DC Order Prescriptions: New losartan 50 mg Tablet 50 mg PO DAILY Qty: 30 RF: 1 cefuroxime axetil 250 mg tablet 250 mg PO BID Qty: 2 RF: 0 Continued ezetimibe 10 mg tablet 10 mg PO DAILY RF: 0 (DME) CPAP Machine Misc See Dose Instructions .ROUTE .MEDSUPPLY Qty: 1 RF: 0 ascorbate calcium (vitamin C) 500 mg tablet 500 mg PO DAILY RF: 0 aspirin [Adult Low Dose Aspirin] 81 mg tablet,delayed release (DR/EC) 81 mg PO DAILY RF: 0 cyanocobalamin (vitamin B-12) 1,000 mcg capsule 1,000 mcg PO DAILY RF: 0 ipratropium-albuterol 0.5 mg-3 mg(2.5 mg base)/3 mL solution for nebulization 3 ml INH QID PRN (Reason: Shortness Of Breath) RF: 0 levothyroxine 75 mcg capsule 75 mcg PO DAILYBB RF: 0 loratadine 10 mg tablet 10 mg PO DAILY RF: 0 magnesium oxide 400 mg magnesium tablet 400 mg PO DAILY RF: 0 metoprolol tartrate 50 mg tablet 50 mg PO .COMPLEX RF: 0 nitroglycerin 0.4 mg tablet, sublingual 0.4 mg SL Q5M PRN (Reason: Chest Pain) RF: 0 potassium chloride 10 mEq capsule, extended release 10 meq PO BID RF: 0 torsemide 100 mg tablet 50 mg PO DAILY RF: 0 fluticasone propionate 50 mcg/actuation spray,suspension 2 spray intranasal HS RF: 0 omeprazole magnesium 20 mg Tablet,Delayed Release (Dr/Ec) 20 mg PO DAILY RF: 0 amoxicillin 500 mg capsule 2,000 mg PO DIRECTED PRN (Reason: 1 hr prior to dental appt) RF: 0 atorvastatin 40 mg tablet 40 mg PO DAILY RF: 0 fluticasone propion-salmeterol 250-50 mcg/dose blister with device 1 ea INHALATION BID RF: 0 Ocuvite Adult 50 Plus 250-5-1 mg Capsule 1 cap PO DAILY RF: 0 glipizide 2.5 mg tablet extended release 24 hr 2.5 mg PO DAILYBB RF: 0 duloxetine 20 mg capsule,delayed release(DR/EC) 20 mg PO DAILY RF: 0 Discontinued losartan 25 mg tablet 25 mg PO DAILY RF: 0 Discharge Orders: Discharge Order (Routine); Ordered 08/13/21 Ordered By: Godwin Toribio/Other Patient Handouts: Managing Type 2 Diabetes Admission Data Admit Date/Time: 08/11/21 21:45 Attending Provider: Godwin Shepherd Admit Provider: [place] Mayorga Primary Care Provider: Peggy Reyes Other Providers: [place] Mayorga
== END 2021-08-13 14:38 | disposition home or self-care (01) ==
LOC: 2S 16:34 → ED 16:34 → 2S 22:13

== ENCOUNTER 2021-12-21 06:22 | Inpatient (IN) ==
--- NOTE | 2021-11-24 09:57 | PAT Medication Instructions ---
Medication Instructions Date of Service November 24, 2021 Home Medications Medication Instructions Recorded CPAP Machine #1 ea 02/13/19 ascorbate calcium (vitamin C) 500 mg tablet 500 mg PO BID aspirin 81 mg tablet,delayed release (Adult Low Dose Aspirin) 81 mg PO QAM cyanocobalamin (vitamin B-12) 1,000 mcg capsule 1,000 mcg PO QAM ipratropium 0.5 mg-albuterol 3 mg (2.5 mg base)/3 mL nebulization soln 3 ml inhalation QID PRN Shortness Of Breath levothyroxine 75 mcg capsule 75 mcg PO DAILYBB loratadine 10 mg tablet 10 mg PO DAILY magnesium oxide 400 mg PO QPM metoprolol tartrate 50 mg tablet 50 mg PO .COMPLEX nitroglycerin 0.4 mg sublingual tablet 0.4 mg sublingual Q5M PRN Chest Pain torsemide 100 mg tablet 50 mg PO QAM ezetimibe 10 mg tablet 10 mg PO QPM fluticasone propionate 50 mcg/actuation nasal spray,suspension 2 spray intranasal HS amoxicillin 500 mg capsule 2,000 mg PO DIRECTED PRN 1 hr prior to dental appt atorvastatin 40 mg tablet 40 mg PO QPM fluticasone 250 mcg-salmeterol 50 mcg/dose blistr powdr for inhalation 1 ea inhalation BID omeprazole magnesium 20 mg tablet,delayed release 20 mg PO QAM vit C,E,zinc,copper-vhtkw4a 250 mg-lutein 5 mg-zeaxanthin 1 mg capsule (Ocuvite Adult 50 Plus) 1 cap PO QAM duloxetine 20 mg capsule,delayed release 20 mg PO BID glipizide 2.5 mg tablet, extended release 24 hr 2.5 mg PO DAILYBB losartan 50 mg tablet 100 mg PO QAM spironolactone 25 mg tablet 25 mg PO QAM Continue as directed nitroglycerin 0.4 mg sublingual tablet 0.4 mg sublingual Q5M PRN Chest Pain amoxicillin 500 mg capsule 2,000 mg PO DIRECTED PRN 1 hr (if needed prior to dental appt) ASK your prescriber and surgeon aspirin 81 mg tablet,delayed release (Adult Low Dose Aspirin) 81 mg PO QAM STOP taking 2 weeks before surgery (or as soon as possible if surgery is within 2 weeks) vit C,E,zinc,copper-zsaav7m 250 mg-lutein 5 mg-zeaxanthin 1 mg capsule (Ocuvite Adult 50 Plus) 1 cap PO QAM DO NOT take the morning of surgery ascorbate calcium (vitamin C) 500 mg tablet 500 mg PO BID cyanocobalamin (vitamin B-12) 1,000 mcg capsule 1,000 mcg PO QAM loratadine 10 mg tablet 10 mg PO DAILY torsemide 100 mg tablet 50 mg PO QAM glipizide 2.5 mg tablet, extended release 24 hr 2.5 mg PO DAILYBB losartan 50 mg tablet 100 mg PO QAM spironolactone 25 mg tablet 25 mg PO QAM Take morning of surgery With a small sip of water, OTHERWISE NOTHING TO EAT OR DRINK AFTER MIDNIGHT: ipratropium 0.5 mg-albuterol 3 mg (2.5 mg base)/3 mL nebulization soln 3 ml inhalation QID PRN Shortness Of Breath (if needed) levothyroxine 75 mcg capsule 75 mcg PO DAILYBB metoprolol tartrate 50 mg tablet 50 mg PO .COMPLEX fluticasone 250 mcg-salmeterol 50 mcg/dose blistr powdr for inhalation 1 ea inhalation BID omeprazole magnesium 20 mg tablet,delayed release 20 mg PO QAM duloxetine 20 mg capsule,delayed release 20 mg PO BID Take evening before surgery ascorbate calcium (vitamin C) 500 mg tablet 500 mg PO BID ipratropium 0.5 mg-albuterol 3 mg (2.5 mg base)/3 mL nebulization soln 3 ml inhalation QID PRN Shortness Of Breath (if needed) magnesium oxide 400 mg PO QPM metoprolol tartrate 50 mg tablet 50 mg PO .COMPLEX ezetimibe 10 mg tablet 10 mg PO QPM fluticasone propionate 50 mcg/actuation nasal spray,suspension 2 spray intra nasal HS atorvastatin 40 mg tablet 40 mg PO QPM fluticasone 250 mcg-salmeterol 50 mcg/dose blistr powdr for inhalation 1 ea inhalation BID duloxetine 20 mg capsule,delayed release 20 mg PO BID glipizide 2.5 mg tablet, extended release 24 hr 2.5 mg PO DAILYBB Other Notes If you have any questions please call us at [phone] or [phone] or [phone] or [phone]
--- NOTE | 2021-12-02 14:32 | Anesthesiology Consultation ---
Date of Service December 02, 2021 Assessment & Plan (1) Encounter for pre-operative examination: - Awaiting review of preop testing (labs + UA/A1C, CXR). - COVID screening: Per assessment on 12/02: No known COVID-19 positive contacts or current COVID-19 related symptoms. Travel screen negative. Patient vaccinated. Surgeon arranging preop COVID testing. Awaiting results. - Check BSG AM DOS - PCP office visit (11/22/21): "Will check some labs. Medicaly [sic] cleared for surgery. Pt will call cardiology about cardiac clearance." > Labs done 11/22/21 were unremarkable. - Cardiology office visit (11/25/21): " 76-year-old female presenting today for preoperative cardiology consultation, with evidence of acute decompensated diastolic congestive heart failure. Options of management discussed. Risks explained. Recommend improvement in volume status prior to elective surgery. Recommend restricting sodium to less than 1500 mg/day. Increase torsemide dosing to 60 mg/day. Check a follow-up basic metabolic panel in 7 to 10 days. Refer for resting echocardiography to assess function and valvular status noting symptoms and pending surgery.. Benefits, use, and risks of increasing torsemide discussed. Echo ordered. Cardiology follow-up in 1-2 weeks or as needed. ER with emergencies." - Cardiology recommended follow-up BMP after diuretics adjustment was done 12/02/21- shows elevation in creatinine at 1.79 (previously WNL on 11/22/21 at 1.0). Awaiting cardiology-ordered Echo scheduled 12/06 ([facility]) and final cardiology preop recommendations (Denzel SANDOVAL, appt 12/08)- note sent to cardio with updated labs/elevated creatinine. Chart Review Chart Review: Patient seen in Pre Admission Testing Teaching & Discussion Pre-Anesthesia Teaching/Discussion Notes: Instructed NPO after midnight before surgery,except medications with 15 cc of water. Medication instructions provided according to the PAT guidelines. History Surgery Operation Date: 12/21/21 09:25 Proposed Procedures p Left Shoulder Resurfacing - Segun Carlson DO s VS Total Shoulder Arthroplasty - Segun Carlson DO Height/Weight Height: 5 ft 1 in Weight: 86.8 kg Allergies Allergy/AdvReac Type Severity Reaction Status Date / Time erythromycin base AdvReac Intermediate GI UPSET Verified 08/11/21 17:48 AND CRAMPING tetracycline AdvReac Intermediate GI UPSET Verified 08/11/21 17:48 Medications Home Medications Medication Instructions Recorded Confirmed Last Taken ascorbate calcium (vitamin C) 500 500 mg PO BID 12/17/18 11/23/21 08/10/21 mg tablet aspirin 81 mg tablet,delayed 81 mg PO QAM 12/17/18 11/23/21 08/10/21 release (Adult Low Dose Aspirin) cyanocobalamin (vitamin B-12) 1,000 mcg PO QAM 12/17/18 11/23/21 08/10/21 1,000 mcg capsule ipratropium 0.5 mg-albuterol 3 mg 3 ml inhalation QID PRN Shortness 12/17/18 11/23/21 07/01/19 (2.5 mg base)/3 mL nebulization Of Breath soln levothyroxine 75 mcg capsule 75 mcg PO DAILYBB 12/17/18 11/23/21 08/10/21 loratadine 10 mg tablet 10 mg PO DAILY 12/17/18 11/23/21 08/10/21 magnesium oxide 400 mg PO QPM 12/17/18 11/23/21 08/10/21 metoprolol tartrate 50 mg tablet 50 mg PO .COMPLEX 12/17/18 11/23/21 08/10/21 nitroglycerin 0.4 mg sublingual 0.4 mg sublingual Q5M PRN Chest 12/17/18 11/23/21 Unknown tablet Pain torsemide 100 mg tablet 50 mg PO QAM 12/17/18 11/23/21 08/10/21 ezetimibe 10 mg tablet 10 mg PO QPM 12/26/18 11/23/21 08/10/21 CPAP Machine #1 ea 02/13/19 07/02/19 Unknown fluticasone propionate 50 2 spray intranasal HS 07/02/19 11/23/21 08/10/21 mcg/actuation nasal spray,suspension amoxicillin 500 mg capsule 2,000 mg PO DIRECTED PRN 1 hr 11/14/20 11/23/21 Unknown prior to dental appt atorvastatin 40 mg tablet 40 mg PO QPM 11/14/20 11/23/21 08/10/21 fluticasone 250 mcg-salmeterol 50 1 ea inhalation BID 11/14/20 11/23/2108/10/22 mcg/dose blistr powdr for inhalation omeprazole magnesium 20 mg 20 mg PO QAM 11/14/20 11/23/21 08/10/21 tablet,delayed release vit C,E,zinc,copper-shijw8j 250 1 cap PO QAM 11/14/20 11/23/21 08/10/21 mg-lutein 5 mg-zeaxanthin 1 mg capsule (Ocuvite Adult 50 Plus) duloxetine 20 mg capsule,delayed 20 mg PO BID 08/11/21 11/23/21 08/10/21 release glipizide 2.5 mg tablet, extended 2.5 mg PO DAILYBB 08/11/21 11/23/21 08/10/21 release 24 hr losartan 50 mg tablet 100 mg PO QAM 11/23/21 11/23/21 Unknown spironolactone 25 mg tablet 25 mg PO QAM 11/23/21 11/23/21 Unknown Past Medical History Medical History Asthma CAD (coronary artery disease) 07/2017 cardiac catheterization at [facility] with mild luminal irregularities, no obstructive CAD CKD (chronic kidney disease) Stage III COPD (chronic obstructive pulmonary disease) Diabetes GERD (gastroesophageal reflux disease) History of aortic stenosis s/p AVR (2008, 2017) - bioprosthetic Follows with Dr. Oconnor (last appt 11/25/21), echo scheduled 12/06, appt 12/08 HLD (hyperlipidemia) HTN (hypertension) Hypothyroidism LBBB (left bundle branch block) LBBB/NS IVCD chronic dating back several years. LBBB pattern noted on 03/2021 echo. Moderate obstructive sleep apnea CPAP Myocardial infarction 2008 ([facility] [place]) Nocturnal hypoxemia Obesity PLMD (periodic limb movement disorder) Exercise / Class Metabolic Activity III < 4 Walking/Shop/Light housework (1 FS (No CP, + SOB)) Past Family History Family History Other Aortic stenosis Diabetes Past Surgical History Surgical History H/O aortic valve replacement 2008, 2017 H/O: hysterectomy History of left heart catheterization (LHC) Balloon dilation 2008 (left PDA) S/P colonoscopy S/P hip replacement S/P T&A (status post tonsillectomy and adenoidectomy) Past Anesthesia History No Hx of Anesthesia Complications and No Family Hx of Anesthesia Complications History of PONV No Hx of PONV and No Hx of Motion Sickness Social History Smoking Status: Never smoker Do You Dip or Chew Tobacco: No Hx Alcohol Use: No Hx Substance Use: No substance use type: does not use Review of Systems Patient denies chest pain, shortness of breath, fever, chills, cough, wheezing, palpitations. Physical Exam Vital Signs VITALS BP 102/60 P 60 TEMP 98.5 SP02 96%RA RESP 16 PHYSICAL Full cervical extension range of motion. Full TMJ range of motion. TMD 3 finger breaths Mallampati Score 1 Dentition: upper partial Lungs: clear throughout to auscultation Cardiac: regular rate and rhythm, no murmurs noted Spine: normal Carotid arteries: negative bruit Extremities: no edema Lab Results Anesthesia Preop Results Results Anesthesia Widget: Na 137 mmol/L (136-145) 12/02/21 K 4.6 mmol/L (3.5-5.1) 12/02/21 Cl 97 mmol/L (98-107) L 12/02/21 CO2 33 mmol/L (21-32) H 12/02/21 BUN 38 mg/dl (6-23) H 12/02/21 Creat 1.79 mg/dl (0.6-1.2) H 12/02/21 Glucose Level 60 mg/dl (70-99(Fasting)) L 12/02/21 PT 10.3 Seconds (9.0-12.0) 12/02/21 PTT 25.6 Seconds (21.0-31.0) 12/02/21 INR 1.0 (0.9-1.1) 12/02/21 HA1c 6.9 % (4.5-5.6) H 12/02/21 Urine Color Yellow 12/02/21 Urine Appearance Clear (Clear) 12/02/21 Urine pH 5.5 (4.5-7.5) 12/02/21 Urine Specific [place] 1.016 (1.000-1.030) 12/02/21 Urine Protein Negative (Negative) 12/02/21 Urine Glucose (UA) Negative (Negative) 12/02/21 Urine Ketones Trace (Negative) H 12/02/21 Urine Blood Negative (Negative) 12/02/21 Urine Nitrite Negative (Negative) 12/02/21 Urine Bilirubin Negative (Negative) 12/02/21 Urine Urobilinogen Negative (Negative) 12/02/21 Urine Leukocyte Esterase 3+ (Negative) H 12/02/21 Urine WBC (Auto) >30 /hpf (0-5) H 12/02/21 Urine RBC (Auto) 0-4 /hpf (0-4) 12/02/21 Urine Hyaline Casts (Auto) 5-10 /lpf (0-5) H 12/02/21 Urine Epithelial Cells (Auto) >30 /lpf (0-5) H 12/02/21 Urine Bacteria (Auto) Negative (Negative) 12/02/21 Blood Type B Positive 12/02/21 Antibody Screen NEGATIVE 12/02/21 Testing Laboratory Results 11/22/21 WBC 8.08 H/H 12.4/38.0 PLATELETS 236 Electrocardiogram Date: 11/25/21 Sinus rhythm with PACs with aberrant conduction at 63 bpm. Nonspecific IVCD. Cannot rule out septal infarct (cited on or before 10/12/2017). Lateral infarct (cited on or before 10/22/2017). Echocardiogram Date: 03/08/21 EF 50-55%. Abnormal septal wall motion consistent with left bundle branch block pattern (otherwise normal wall motion. Grade 2 diastolic dysfunction. Patient is status post TAVR with sapient type prosthetic valve. The aortic valve prosthesis systolic gradients are normal for this type prosthesis. Aortic valve prosthesis stenosis is absent. Mild MR. PASP 34 mmHg. Mild concentric LVH.
--- NOTE | 2021-12-02 14:43 | History & Physical Report ---
Date of Service December 02, 2021 date of surgery: 12/21/21 Procedure: Left Shoulder Resurfacing VS Total Shoulder Arthroplasty Surgeon: Segun Carlson Assessment & Plan (1) Arthritis of left shoulder region: Plan: Patient presents for preop evaluation prior to left shoulder resurfacing versus total shoulder replacement at [facility]. She will obtain preadmission testing later today, will need medical clearance from Dr. Reyes as well as cardiac clearance from [facility] cardiology. We will like to be discharged home with home health physical therapy. Follow-up in the office 2 weeks postop sooner if he is having any issues. Otherwise has no other questions or concerns The risks and benefits have been discussed including, but not limited to, risk of infection, nerve injury, stiffness, loss of motion, failure to improve, etc. Reasonable outcomes and options of treatment were discussed. An explanation of appropriate alternatives to the procedure that may be advantageous were discussed and their risks and benefits, as well as the risks and benefits of not proceeding with treatment. I offered to answer any additional inquiries concerning the treatment involved. All the patient's questions were answered. The patient is agreeable, understanding of the treatment plan and alternatives, and wishes to proceed with the treatment plan. History of Present Illness Chief Complaint: left shoulder pain Primary Care Provider: Peggy Reyes MD Mrs Mustafa is a 76-year-old female who presents for preop evaluation prior to left shoulder resurfacing versus total shoulder replacement. She states she has been having pain in that shoulder for many years now which gradually worsened. She had a recent cortisone injection which did not provide any relief. Pain is not affecting her daily activities, she has weakness and pain with activities, pain is waking her at night. She is tried oral anti-inflammatory as well as Tylenol. I discussing risk and benefits of procedure, she would like to proceed with surgical intervention Allergies Allergy/AdvReac Type Severity Reaction Status Date / Time erythromycin base AdvReac Intermediate GI UPSET Verified 08/11/21 17:48 AND CRAMPING tetracycline AdvReac Intermediate GI UPSET Verified 08/11/21 17:48 Home Medications Medication Instructions Recorded Confirmed Type ascorbate calcium (vitamin C) 500 500 mg PO BID 12/17/18 11/23/21 History mg tablet aspirin 81 mg tablet,delayed 81 mg PO QAM 12/17/18 11/23/21 History release (Adult Low Dose Aspirin) cyanocobalamin (vitamin B-12) 1,000 mcg PO QAM 12/17/18 11/23/21 History 1,000 mcg capsule ipratropium 0.5 mg-albuterol 3 mg 3 ml inhalation QID PRN Shortness 12/17/18 11/23/21 History (2.5 mg base)/3 mL nebulization Of Breath soln levothyroxine 75 mcg capsule 75 mcg PO DAILYBB 12/17/18 11/23/21 History loratadine 10 mg tablet 10 mg PO DAILY 12/17/18 11/23/21 History magnesium oxide 400 mg PO QPM 12/17/18 11/23/21 History metoprolol tartrate 50 mg tablet 50 mg PO .COMPLEX 12/17/18 11/23/21 History nitroglycerin 0.4 mg sublingual 0.4 mg sublingual Q5M PRN Chest 12/17/18 11/23/21 History tablet Pain torsemide 100 mg tablet 50 mg PO QAM 12/17/18 11/23/21 History ezetimibe 10 mg tablet 10 mg PO QPM 12/26/18 11/23/21 History CPAP Machine #1 ea 02/13/19 07/02/19 Rx fluticasone propionate 50 2 spray intranasal HS 07/02/19 11/23/21 History mcg/actuation nasal spray,suspension amoxicillin 500 mg capsule 2,000 mg PO DIRECTED PRN 1 hr 11/14/20 11/23/21 History prior to dental appt atorvastatin 40 mg tablet 40 mg PO QPM 11/14/20 11/23/21 History fluticasone 250 mcg-salmeterol 50 1 ea inhalation BID 11/14/20 11/23/21 History mcg/dose blistr powdr for inhalation omeprazole magnesium 20 mg 20 mg PO QAM 11/14/20 11/23/21 History tablet,delayed release vit C,E,zinc,copper-wfuzp9j 250 1 cap PO QAM 11/14/20 11/23/21 History mg-lutein 5 mg-zeaxanthin 1 mg capsule (Ocuvite Adult 50 Plus) duloxetine 20 mg capsule,delayed 20 mg PO BID 08/11/21 11/23/21 History release glipizide 2.5 mg tablet, extended 2.5 mg PO DAILYBB 08/11/21 11/23/21 History release 24 hr losartan 50 mg tablet 100 mg PO QAM 11/23/21 11/23/21 History spironolactone 25 mg tablet 25 mg PO QAM 11/23/21 11/23/21 History Past Med/Surg History Medical History Asthma CAD (coronary artery disease) 07/2017 cardiac catheterization at [facility] with mild luminal irregularities, no obstructive CAD CKD (chronic kidney disease) Stage III COPD (chronic obstructive pulmonary disease) Diabetes GERD (gastroesophageal reflux disease) History of aortic stenosis s/p AVR (2008, 2017) - bioprosthetic Follows with Dr. Oconnor (last appt 11/25/21), echo scheduled 12/06, appt 12/08 HLD (hyperlipidemia) HTN (hypertension) Hypothyroidism LBBB (left bundle branch block) LBBB/NS IVCD chronic dating back several years. LBBB pattern noted on 03/2021 echo. Moderate obstructive sleep apnea CPAP Myocardial infarction 2008 ([facility] [place]) Nocturnal hypoxemia Obesity PLMD (periodic limb movement disorder) Surgical History H/O aortic valve replacement 2008, 2017 H/O: hysterectomy History of left heart catheterization (LHC) Balloon dilation 2008 (left PDA) S/P colonoscopy S/P hip replacement S/P T&A (status post tonsillectomy and adenoidectomy) Family History Other Aortic stenosis Diabetes Social History Smoking Status: Never smoker Tobacco Type: Cigarettes Second Hand Exposure: No; Hx Alcohol Use: No Hx Substance Use: No Preferred Language: Romanian Communication Ability: Effective Claim Administrator Required: No Beliefs That Will Affect Care: None marital status: Current Living Situation: Spouse current occupational status: retired Feels Safe at Home: Yes Assistive Devices: Cane, CPAP, Denture - Upper, Glasses, Hearing Aid - Bilateral and Walker Review of Systems Review of Systems: All systems reviewed & are unremarkable except as noted in HPI & below Constitutional: no fever, no chills and no sweats Respiratory: no cough and no dyspnea Cardiovascular: no chest pain, no dyspnea and no orthopnea Gastrointestinal: no abdominal pain, no nausea and no vomiting Musculoskeletal: as per Subjective / HPI Physical Exam Physical Exam: HT: 5ft 1in WT: 86.8kg Constitutional: WD/WN, vitals as above no acute distress Respiratory: normal respiratory effort, lungs clear to auscultation no respiratory distress, no labored breathing and does not use accessory muscles Cardiovascular: RRR, no murmur, no edema Gastrointestinal (Abdomen): normal bowel sounds, soft, nontender, no hepatosplenomegaly Musculoskeletal: Left Shoulder Physical Exam there is no ecchymosis or erythema noted, positive crepitation with active motion, Tenderness anterior aspect shoulder, subacromial space and the AC joint. Belly press - Positive. [place] Positive. Cross Body Positive. Neer's - positive. Strength tests - External rotation 4/5, Supraspinatus 4/5 no atrophy Left shoulder ROM Active ROM - Flexion: 120 degrees, Ext Rot 90 Flex: 30 degrees, Abduction: 45 degrees, Factors: pain, Description: Pain with ROM. Passive ROM - Flexion 170 degrees, ER at 90 de degrees, pain with end range passive ROM. Neurovascular- Radial pulse palpable, radial/median/ulnar nerves intact. Elbow- full painless range of motion, no tenderness. Results & Data Results & Data ([facility]) Diagnostic Findings Left Shoulder radiographs reveal advanced degenerative changes at GH joint with osteophyte formation and subchondral cystic changes.
[~2021-12-21 06:22] MED LIST changes: +ACETAMINOPHEN 500 MG TAB PO SCH; -ADVIN25050 INH; -AMOX875T PO; -ASCO500T16 PO; -ASPI81TA28 PO; +BUPIVACAINE 0.5 % 5 MG/1 ML PF 10ML VIAL ONE; -CETI10TA84 PO; +CeleBREX 200 MG CAP PO SCH; +FAMOTIDINE 20 MG TAB PO SCH; +GABAPENTIN 300 MG CAP PO SCH; -IPRA1AER2 INH; -LEVO-18 PO; +LR 15ML/HR IV SCH; -LSX40 PO; +METOCLOPRAMIDE HCL 10 MG TABLET PO SCH; -MULT1CAP14 PO; -NTRGSL/4 UT; -PHENSYP13 PO; +TRANEXAMIC ACID 1,000 MG **IV Intra-op IV SCH; +TRANEXAMIC ACID 1,000 MG **IV Pre-op IV SCH; +ceFAZolin 2000MG 2,000 MG/15 ML SYR IV SCH; +dexAMETHasone 4 MG TAB PO SCH
--- NOTE | 2021-12-21 07:19 | History & Physical Bridge Note ---
Date of Service December 21, 2021 History & Physical Bridge Note I have examined the patient, reviewed the History & Physical and in the interval since the performance of the History & Physical I have noted the following changes of clinical significance: no changes noted
[2021-12-21] MEDS ORDERED: ROCURONIUM BROMIDE 10 MG/ML 5 ML VIAL IV ONE (09:13)
[2021-12-21] MEDS ORDERED: LIDOCAINE 2% 20 MG/ML 5 ML SYR IV ONE (09:13)
[2021-12-21] MEDS ORDERED: MIDAZOLAM HCL 1 MG/ML 2ML VIAL ONE (09:13)
[2021-12-21] MEDS ORDERED: fentaNYL citrate 100 MCG/2 ML VIAL ONE (09:13)
[2021-12-21] MEDS ORDERED: PROPOFOL IV EMULSION 10 MG/ML 20 ML VIAL IV ONE (09:13)
[2021-12-21] MEDS ORDERED: ePHEDrine sulfate 50 MG/ML AMP IV PRN (09:17)
[2021-12-21] MEDS ORDERED: ATROPINE SULFATE 0.1 MG/ML 10ML SYR IV PRN (09:17)
[2021-12-21] MEDS ORDERED: HYDROmorphone INJ 2 MG/ML SYR/VIAL IV PRN (09:17)
[2021-12-21] MEDS ORDERED: ONDANSETRON INJ 2 MG/ML 2 ML VIAL IV PRN ×2 (09:17→13:35)
[2021-12-21] MEDS ORDERED: PROMETHAZINE HCL 12.5 MG in SODIUM CHLORIDE 0.9% 50 ML IV PRN (09:17)
[2021-12-21] MEDS ORDERED: fentaNYL citrate 100 MCG/2 ML VIAL IV PRN (09:17)
[2021-12-21] MEDS ORDERED: NEOSTIGMINE METHYLSULFATE 1 MG/ML 10ML VIAL ONE (11:02)
[2021-12-21] MEDS ORDERED: ONDANSETRON INJ 2 MG/ML 2 ML VIAL ONE (11:02)
[2021-12-21] MEDS ORDERED: GLYCOPYRROLATE 0.2 MG/ML VIAL ONE (11:02)
--- NOTE | 2021-12-21 11:02 | Operative Report ---
Post Operative Report Pre & Post Diagnosis Operation Date: 12/21/21 09:05 Pre-Op Diagnosis: Primary Osteoarthritis of Left Shoulder Post-Op Diagnosis: Primary Osteoarthritis of Left Shoulder I identified the patient and participated in the time-out.: Yes Procedure Operation Date: 12/21/21 09:05 Actual Procedures p Left Shoulder Resurfacing(Left) utilizing 41 x 15 mm resurfacing Turnier head implant- Segun Carlson DO Surgeon Segun Carlson DO Miller Head Buddy LEMON Estimated Blood Loss 15 Findings Consistent with Post-Op Diagnosis Patient presents with glenohumeral arthritis with erosions where to the glenohumeral joint involving primarily humeral head with inferior osteophytes nonresponsive to conservative management Specimens Bone and cartilage Drains Medium bore Hemovac Anesthesia Type General Regional Complications none Disposition Accompanied Patient To Recovery: No Disposition: Recovery Room Indications Patient presents with DJD left shoulder nonresponsive to conservative management clinic intra-articular corticosteroid injections relative rest activity modification patient presents the above intraoperative findings Description of Procedure After initiation of general anesthesia the left shoulder region socially prepped draped you sterile fashion for surgery of this type utilize #10 blade incision made in the region of the anterior aspect of the deltopectoral interval the deltopectoral interval was developed the cephalic vein was retracted lateralward with the deltoid muscle the anterior aspect of the subscapularis was subsequently identified and was reflected off the anterior aspect of the lesser tuberosity special attention was paid to protect the biceps tendon at all times meticulous hemostasis obtained and maintained was irrigated after reflecting the subscapularis off the humeral head these was it was sutured with a #0 Ethibond and tagged for retraction the humeral head was then subsequently externally rotated after external rotation the humeral head was evaluated inferior osteophytes were removed to reverse Hohmann blunt retractors were placed for better exposure of the self-retaining deltoid retractors were also used after exposure of the humeral head the humeral head was sized to a 41 x 15 gave anatomic reconstruction of the humeral head size was subsequently reversed reversed reamed was trialed excellent stability was noted excellent fit fill proximal lower soft migration of the prosthesis was excellent socially the wound was irrigated once again sutures and using three #5 FiberWire's were placed through the bony anterior aspect of the humeral head into the humeral head the final component was socially then brought onto the field and utilizing a Pimentel taper was tapped into place in anatomic position after placement of the subscapularis tendon was then subsequently was repaired utilizing #5 FiberWire the rotator interval was closed #1 Vicryl the shoulder was stable and was for range of motion was noted deltopectoral was then tacked with #2-0 Vicryl subcu was closed 2-0 Vicryl and the skin clips and sterile compressive dressings placed please note the deep Hemovac medium bore Hemovacs placed in the deep wound was irrigated was irrigated prior to closure patient taught procedure wellDue to the complex nature of the procedure, the entire surgery was performed with the operational assistance of Buddy LEMON. The digital marketing assistant, under direct supervision, was involved in the actual performance of all aspects of the surgical procedure including hemostasis, tissue retraction and incision, instrument management, patient positioning, and wound closure. I attest to the content of the Intraoperative Record and any orders documented therein. Any exceptions are noted below.
--- NOTE | 2021-12-21 11:48 | Anesthesiology Progress Note ---
Date of Service December 21, 2021 Anesthesia Post Procedure Vital Signs Vital Signs: Temp Pulse Resp BP Pulse Ox O2 Del Method O2 Flow Rate 12/21/21 11:40 70 15 145/81 H 96 Oxymask 4 12/21/21 11:30 72 15 148/85 H 99 Oxymask 14 12/21/21 11:23 36.1 C L 77 18 177/102 H 95 Oxymask 14 12/21/21 06:58 36.9 C 65 20 157/81 H 94 Room Air Transfer of Care Handoff Completed per policy Notes Mental Status: alert / awake / arousable and participated in evaluation Patient Amnestic to Procedure: Yes Nausea / Vomiting: adequately controlled Pain: adequately controlled Airway Patency, RR, SpO2: stable & adequate BP & HR: stable & adequate Hydration State: stable & adequate Anesthetic Complications: no major complications apparent
--- NOTE | 2021-12-21 12:23 | XRay Report ---
XR shoulder LT min 2V routine HISTORY: 76 years-old Female Post shoulder surgery left shoulder arthroplasty COMPARISON: Chest radiograph 12/02/2021 TECHNIQUE: 2 views of the left shoulder FINDINGS: Left shoulder arthroplasty demonstrates satisfactory alignment. Overlying skin allie are noted with expected postoperative soft tissue swelling with deep tissue air. No acute fracture or unexpected op aque foreign body. Prior median sternotomy. Cardiomegaly with aortic endograft. Pulmonary vascular co ngestion with interstitial coarsening. IMPRESSION: Left shoulder arthroplasty with expected postoperative changes. ACT 112: Negative or not required by law. The above report was generated using voice recognition software. It may contain grammatical, syntax o r spelling errors. Electronically signed by: Hayder Dhaliwal M.D. 12/21/2021 12:21 PM
[2021-12-21] MEDS ORDERED: ALBUT/IPRATROP 3MG/0.5MG NEB 3 ML VIAL INH PRN (13:35)
[2021-12-21] MEDS ORDERED: PHARMACY GLYCEMIC MGMT CONSULT PRN (13:35)
[2021-12-21] MEDS ORDERED: bisacodyL 10 MG SUPP PR PRN (13:35)
[2021-12-21] MEDS ORDERED: MAGNESIUM HYDROXIDE SUSP 30 ML UDC PO PRN (13:35)
[2021-12-21] MEDS ORDERED: NALOXONE HCL 0.4 MG/1 ML VIAL/CARP IV PRN (13:35)
[2021-12-21] MEDS ORDERED: NITROGLYCERIN SL 0.4 MG/TAB TAB SL PRN (13:35)
[2021-12-21] MEDS ORDERED: SODIUM CHLORIDE 0.9% 1000ML 1,000 ML IV SCH (13:35)
[2021-12-21] MEDS ORDERED: HYDROmorphone INJ 0.5 MG/0.5 ML SYR IV PRN (13:35)
--- NOTE | 2021-12-21 14:04 | Consultation ---
Date of Consultation December 21, 2021 Assessment & Plan (1) Status post shoulder surgery: Post op day# 0 S/P Left Shoulder Resurfacing by Dr Aldo PANDEY#15ml -pain management per ortho -wound management per ortho -PT/OT as appropriate -DVT prophylaxis per ortho -incentive spirometry -monitor H&H for acute blood loss anemia; pre-op Hgb: 12.4 (2) Chronic diastolic heart failure: History Echo 12/06/2021: EF 55-59%, grade 1 diastolic dysfunction, s/p TAVR with prosthetic valve. No prosthesis stenosis or significant prosthesis regurgitation. Mild pulmonary hypertension. Mild MR -Appears euvolemic -Resume torsemide, spironolactone tomorrow (3) CAD (coronary artery disease): History of [place] s/p angioplasty 2008 -Continue aspirin, metoprolol tartrate, atorvastatin (4) Aortic stenosis: Status post bioprosthetic valve 2008. Status post TAVR 2017 (5) CKD (chronic kidney disease), stage III: Cr: 1.5 on 12/14/21. Prior baseline 1.0-1.2. Torsemide was adjusted outpatient from 60 mg to 50 mg daily secondary to worsening renal functions -Monitor renal functions -Avoid nephrotoxic agents when possible (6) HTN (hypertension): - Continue losartan, metoprolol tartrate (7) HLD (hyperlipidemia): - Continue atorvastatin (8) Diabetes mellitus, type II: A1c: 7.0 08/23/2021 -Hold home glipizide -NovoLog sliding scale per protocol with loose parameters currently. Patient's voices concern about insulin use and fearful of insulin overdose (9) Moderate obstructive sleep apnea: - CPAP at bedtime (10) Hypothyroidism: - Continue levothyroxine (11) GERD (gastroesophageal reflux disease): - Continue PPI (12) Asthma: - Continue home inhalers DVT Prophylaxis -SCDs Disposition per primary service Follows with Dr Reyes for routine care Pt was seen and care coordinated with Dr Shepherd. See addendum Supervising Physician Co-Signing Physician Notes Patient is a 76-year-old female with multiple comorbidities was consulted for postop medical management. Patient is doing well postoperatively. Complains of tingling and numbness of left index finger and thumb. Pain at surgical site is controlled. Patient is moderately built and nourished, no apparent distress, normocephalic atraumatic, normal breath sounds, clear to auscultation, S1-S2, +murmur, +pedal edema, Abd soft, non tender, Normal bowel sounds, alert, awake, oriented, blossom ssly no focal deficits. LUE in surgical dressing. S/P Left Shoulder Resurfacing by . Monitor for post op anemia. Pain is controlled. Wound Care, DVT Px per Primary Team. DM II: NovoLog sliding scale per protocol. Agree with holding PO meds. Monitor volume status, Renal function. I personally reviewed the record. Patient is interviewed and examined at bedside. Patient's care is coordinated with Tamika Rice PA-C. Please refer to the documentation above for details of patient's presentation and for discussion of other issues. History of Present Illness Requesting Physician: Dr Carlson Reason for Consultation: Post op medical management Attending Physician: Segun Carlson, DO History of Present Illness Patient is 76 y/o F with PMH chronic diastolic heart failure, CAD, HTN, dyslipidemia, aortic stenosis s/p aortic valve replacement, DM II, CKD III, asthma, hypothyroidism, GERD, JUDE seen in medical consultation s/p left shoulder resurfacing today by Dr. Carlson. Postop patient denies any pain currently. Reports some tingling sensation to left index finger and thumb. Denies nausea, vomiting, chest pain, shortness of breath. Last BM yesterday. D enies fever/chills, diaphoresis, N/V/D, PEREZ, dizziness, syncope, vision changes, neck pain, palpitations, cough, sore throat, choking, otalgia, rhinorrhea, abdominal pain, paresthesias, weakness, increased extremity edema, rashes, urinary symptoms. Allergies Allergy/AdvReac Type Severity Reaction Status Date / Time erythromycin base AdvReac Intermediate GI UPSET Verified 12/21/21 07:01 AND CRAMPING tetracycline AdvReac Intermediate GI UPSET Verified 12/21/21 07:01 Home Medications Medication Instructions Recorded Confirmed Type ascorbate calcium (vitamin C) 500 500 mg PO BID 12/17/18 12/21/21 History mg tablet aspirin 81 mg tablet,delayed 81 mg PO QAM 12/17/18 12/21/21 History release (Adult Low Dose Aspirin) cyanocobalamin (vitamin B-12) 1,000 mcg PO QAM 12/17/18 12/21/21 History 1,000 mcg capsule ipratropium 0.5 mg-albuterol 3 mg 3 ml inhalation QID PRN Shortness 12/17/18 12/21/21 History (2.5 mg base)/3 mL nebulization Of Breath soln levothyroxine 75 mcg capsule 75 mcg PO DAILYBB 12/17/18 12/21/21 History loratadine 10 mg tablet 10 mg PO DAILY 12/17/18 12/21/21 History magnesium oxide 400 mg PO QPM 12/17/18 12/21/21 History metoprolol tartrate 50 mg tablet 50 mg PO .COMPLEX 12/17/18 12/21/21 History nitroglycerin 0.4 mg sublingual 0.4 mg sublingual Q5M PRN Chest 12/17/18 12/21/21 History tablet Pain torsemide 100 mg tablet 50 mg PO QAM 12/17/18 12/21/21 History ezetimibe 10 mg tablet 10 mg PO QPM 12/26/18 12/21/21 History CPAP Machine #1 ea 02/13/19 12/21/21 Rx fluticasone propionate 50 2 spray intranasal HS 07/02/19 12/21/21 History mcg/actuation nasal spray,suspension amoxicillin 500 mg capsule 2,000 mg PO DIRECTED PRN 1 hr 11/14/20 12/21/21 History prior to dental appt atorvastatin 40 mg tablet 40 mg PO QPM 11/14/20 12/21/21 History fluticasone 250 mcg-salmeterol 50 1 ea inhalation BID 11/14/20 12/21/21 History mcg/dose blistr powdr for inhalation omeprazole magnesium 20 mg 20 mg PO QAM 11/14/20 12/21/21 History tablet,delayed release vit C,E,zinc,copper-ehyqt1t 250 1 cap PO QAM 11/14/20 12/21/21 History mg-lutein 5 mg-zeaxanthin 1 mg capsule (Ocuvite Adult 50 Plus) duloxetine 20 mg capsule,delayed 20 mg PO BID 08/11/21 12/21/21 History release glipizide 2.5 mg tablet, extended 2.5 mg PO DAILYBB 08/11/21 12/21/21 History release 24 hr losartan 50 mg tablet 100 mg PO QAM 11/23/21 12/21/21 History spironolactone 25 mg tablet 25 mg PO QAM 11/23/21 12/21/21 History Patient History Medical History (Updated 12/21/21 @ 14:39 by Tamika Rice PA-C) Aortic stenosis Asthma CAD (coronary artery disease) 07/2017 cardiac catheterization at [facility] with mild luminal irregularities, no obstructive CAD Chronic diastolic heart failure CKD (chronic kidney disease) Stage III CKD (chronic kidney disease), stage III COPD (chronic obstructive pulmonary disease) Diabetes Diabetes mellitus, type II GERD (gastroesophageal reflux disease) History of aortic stenosis s/p AVR (2008, 2017) - bioprosthetic Follows with Dr. Oconnor (last appt 11/25/21), echo scheduled 12/06, appt 12/08 HLD (hyperlipidemia) HTN (hypertension) Hypothyroidism LBBB (left bundle branch block) LBBB/NS IVCD chronic dating back several years. LBBB pattern noted on 03/2021 echo. Moderate obstructive sleep apnea CPAP Myocardial infarction 2008 ([facility]) Nocturnal hypoxemia Obesity PLMD (periodic limb movement disorder) Surgical History H/O aortic valve replacement 2008, 2017 H/O: hysterectomy History of left heart catheterization (LHC) Balloon dilation 2008 (left PDA) S/P colonoscopy S/P hip replacement S/P T&A (status post tonsillectomy and adenoidectomy) Status post shoulder surgery 12/21/2021. Left shoulder resurfacing. Dr. Carlson Family History Other Aortic stenosis Diabetes Social History Smoking Status: Never smoker Tobacco Type: Cigarettes Second Hand Exposure: No; Do You Dip or Chew Tobacco: No; Tobacco Cessation Education Requested by Patient: No Hx Alcohol Use: No Hx Substance Use: No Preferred Language: Khmer Communication Ability: Effective Sales Process Manager Required: No Beliefs That Will Affect Care: None marital status: Current Living Situation: Spouse current occupational status: retired Other Information That Helps Us Care for You: No Feels Safe at Home: Yes Safety Concerns: Feels Safe At This Time Assistive Devices: Cane, CPAP, Denture - Upper, Glasses, Hearing Aid - Bilateral and Walker Assistive Devices Comment: has not been using cane or walker Review of Systems Review of Systems: All systems reviewed & are unremarkable except as noted in HPI & below Physical Exam Physical Exam: General: no distress, overweight Head: normocephalic, atraumatic Eyes: conjunctiva non-injected, anicteric ENT: normal inspection external ears, nose, mucous membranes moist Neck: supple, trachea midline Lungs: clear, no respiratory distress, no wheezing/rhonchi/rales CV: RRR, +systolic murmur, 1+ pretibial edema Abd: normal BS, soft, non-tender Ext: no cyanosis, no calf tenderness; LUE: +surgical dressing to left shoulder in place and dry. Able to flex and extend fingers, sensation to light touch intact, distal pulses intact Neuro: A&O x 3, no focal deficits noted, normal affect Skin: warm, dry Results & Data ([facility]) Vital Signs (Past 12 Hours) Vital Signs Temp Pulse Resp BP Pulse Ox O2 Del Method O2 Flow Rate 12/21/21 14:01 36.5 C 64 18 138/77 96 Nasal Cannula 1 12/21/21 13:35 36.7 C 76 18 130/70 96 Nasal Cannula 1 12/21/21 13:00 63 20 115/73 94 Nasal Cannula 2 12/21/21 12:45 66 17 123/75 94 Nasal Cannula 2 12/21/21 12:30 64 19 128/67 95 Nasal Cannula 2 12/21/21 12:15 63 13 141/77 H 96 Nasal Cannula 2 12/21/21 12:00 36.4 C L 65 20 136/73 95 Nasal Cannula 2 12/21/21 11:50 70 15 138/79 96 Nasal Cannula 2 12/21/21 11:40 70 15 145/81 H 96 Oxymask 4 12/21/21 11:30 72 15 148/85 H 99 Oxymask 14 12/21/21 11:23 36.1 C L 77 18 177/102 H 95 Oxymask 14 12/21/21 06:58 36.9 C 65 20 157/81 H 94 Room Air (1) HTN (hypertension) Hypertension type: unspecified Qualified Code(s): I10 - Essential (primary) hypertension
[2021-12-21] MEDS ORDERED: GLUCOSE 40% GEL 15 GM TUBE PO PRN (14:20)
[2021-12-21] MEDS ORDERED: DEXTROSE 50% 50 ML SYRINGE IV PRN (14:20)
[2021-12-21] MEDS ORDERED: GLUCOSE 10 TAB/TUBE PO PRN (14:20)
[2021-12-21] MEDS ORDERED: CARBOHYDRATES FOR HYPOGLYCEMIA PO PRN (14:20)
[2021-12-21] MEDS ORDERED: GLUCAGON FOR INJ 1 MG VIAL SQ PRN (14:20)
--- NOTE | 2021-12-21 15:46 | Anesthesiology Progress Note ---
Date of Service December 21, 2021 Anesthesia Post Procedure Vital Signs Vital Signs: Temp Pulse Resp BP Pulse Ox O2 Del Method O2 Flow Rate 12/21/21 15:15 36.6 C 78 16 122/77 93 Nasal Cannula 1 12/21/21 14:30 36.8 C 66 18 136/72 95 Nasal Cannula 1 12/21/21 14:15 36.4 C L 73 16 148/69 H 96 Nasal Cannula 1 12/21/21 14:01 36.5 C 64 18 138/77 96 Nasal Cannula 1 12/21/21 13:35 36.7 C 76 18 130/70 96 Nasal Cannula 1 12/21/21 13:00 63 20 115/73 94 Nasal Cannula 2 12/21/21 12:45 66 17 123/75 94 Nasal Cannula 2 12/21/21 12:30 64 19 128/67 95 Nasal Cannula 2 12/21/21 12:15 63 13 141/77 H 96 Nasal Cannula 2 12/21/21 12:00 36.4 C L 65 20 136/73 95 Nasal Cannula 2 12/21/21 11:50 70 15 138/79 96 Nasal Cannula 2 12/21/21 11:40 70 15 145/81 H 96 Oxymask 4 12/21/21 11:30 72 15 148/85 H 99 Oxymask 14 12/21/21 11:23 36.1 C L 77 18 177/102 H 95 Oxymask 14 12/21/21 06:58 36.9 C 65 20 157/81 H 94 Room Air Transfer of Care Handoff Completed per policy Notes Mental Status: alert / awake / arousable and participated in evaluation Patient Amnestic to Procedure: Yes Nausea / Vomiting: adequately controlled Pain: adequately controlled Airway Patency, RR, SpO2: stable & adequate BP & HR: stable & adequate Hydration State: stable & adequate Anesthetic Complications: no major complications apparent and Pt Satisfied with anesthetic care
[2021-12-21] MEDS: ceFAZolin 2000MG 2,000 MG/15 ML SYR IV SCH (16:51)
[2021-12-21] MEDS: INSULIN ASPART PER UNIT SC SCH ×2 (17:39→21:08)
[2021-12-21] MEDS: DOCUSATE SODIUM 100 MG CAP PO SCH (20:36)
[2021-12-21] MEDS: ASCORBIC ACID 500 MG TAB PO SCH (20:38)
[2021-12-21] MEDS: DULoxetine HCL 20 MG CAP PO SCH (20:43)
[2021-12-21] MEDS ORDERED: EZETIMIBE 10 MG TABLET PO SCH (21:00)
[2021-12-21] MEDS ORDERED: MAGNESIUM OXIDE 400 MG TAB PO SCH (21:00)
[2021-12-21] MEDS ORDERED: SENNA 8.6 MG TAB PO SCH (21:00)
[2021-12-21] MEDS ORDERED: ATORVASTATIN 40 MG TAB PO SCH (21:00)
[2021-12-21] MEDS ORDERED: METOPROLOL TARTRATE 50 MG TAB PO SCH (21:00)
[2021-12-21] MEDS ORDERED: FLUTICASONE/VILANTEROL 100/25MCG 14 PUFFS/INHALER INH SCH (21:00)
[2021-12-21] MEDS ORDERED: FLUTICASONE PROPIONATE NA SPR 16 GM BTL SCH (21:00)
[2021-12-22] MEDS: ceFAZolin 2000MG 2,000 MG/15 ML SYR IV SCH (01:42)
[2021-12-22] MEDS ORDERED: glipiZIDE ER 2.5 MG TABCR PO SCH (06:30)
[2021-12-22] MEDS ORDERED: LEVOTHYROXINE SODIUM 75 MCG TABLET PO SCH (06:30)
[2021-12-22 07:04] VITALS: BP 129/54; TEMP 98.4; O2SAT 92
[2021-12-22 07:52] LABS: Basophils # (auto) 0.01 K/uL (0-0.2); Basophils % (auto) 0.1 %; Hematocrit (blood only) 34.8 % (34.1-44.9); Hemoglobin 11.2 g/dl (12.0-16.0); Immature Granulocytes # (auto) 0.05 K/uL (0.00-0.02); Immature Granulocytes % (auto) 0.4 %; Lymphocytes # (auto) 1.02 K/uL (1.2-3.4); Lymphocytes % (auto) 8.9 %; Mean Corpuscular Hemoglobin 29.7 pg (25.0-34.0); Mean Corpuscular Hgb Conc 32.2 g/dL (32.0-36.0); Mean Corpuscular Volume 92.3 fL (80.0-100.0); Monocytes # (auto) 1.01 K/uL (0.24-0.82); Monocytes % (auto) 8.9 %; Neutrophils # (auto) 9.32 K/uL (1.4-6.5); Neutrophils % (auto) 81.7 %; Platelet Count 227 K/uL (130-400); RDW Coefficient of Variation 14.6 % (11.5-14.5); RDW Standard Deviation 49.3 fL (36.4-46.3); Red Blood Count 3.77 M/uL (3.93-5.22); White Blood Count 11.41 K/ul (4.8-10.8)
[2021-12-22 08:22] LABS: Calcium 8.9 mg/dl (8.5-10.1); Creatinine Clr Calc Pharmacy 39.9 ml/min; Est GFR (African American) 51.2 ml/min; Est GFR (Non-African American) 44.1 ml/min; Potassium 4.1 mmol/L (3.5-5.1)
[2021-12-22] MEDS: ASCORBIC ACID 500 MG TAB PO SCH (08:37)
[2021-12-22] MEDS: DULoxetine HCL 20 MG CAP PO SCH (08:38)
[2021-12-22] MEDS: DOCUSATE SODIUM 100 MG CAP PO SCH (08:43)
[2021-12-22] MEDS: oxyCODONE HCL IR 5 MG TAB (IMMEDIATE RELEASE) PO PRN ×2 (08:45→13:06)
[2021-12-22] MEDS ORDERED: METOPROLOL TARTRATE 50 MG TAB PO SCH (09:00)
[2021-12-22] MEDS ORDERED: TORSEMIDE 10 MG TAB PO SCH (09:00)
[2021-12-22] MEDS ORDERED: CYANOCOBALAMIN (B-12) 500 MCG TABLET PO SCH (09:00)
[2021-12-22] MEDS ORDERED: CEROVITE ADV FORMULA TAB PO SCH (09:00)
[2021-12-22] MEDS ORDERED: PANTOprazole 40 MG TAB PO SCH (09:00)
[2021-12-22] MEDS ORDERED: ASPIRIN 81 MG ECTAB PO SCH (09:00)
[2021-12-22] MEDS ORDERED: LOSARTAN POTASSIUM 50 MG TAB PO SCH (09:00)
[2021-12-22] MEDS ORDERED: SPIRONOLACTONE 25 MG TAB PO SCH (09:00)
[2021-12-22] MEDS ORDERED: LORATADINE 10 MG TAB PO SCH (09:00)
[2021-12-22] MEDS: INSULIN ASPART PER UNIT SC SCH ×2 (09:29→13:09)
--- NOTE | 2021-12-22 10:09 | Orthopedic Progress Note ---
Date of Service December 22, 2021 Assessment & Plan (1) Arthritis of left shoulder region: Plan: Postop day 1 status post left shoulder resurfacing PT/OT protocols. Nonweightbearing on the left upper extremity. DVT prophylaxis-SCDs, aspirin p.o. daily Pain management as written. DC planning-patient is planning on discharge to home with outpatient PT. Admission and Anticipated Discharge Date Admission Date: December 21, 2021 Subjective POD 1 Pt sitting up in bed awake and alert. States she is starting to have more pain in the shoulder this AM. We discussed use of oral pain medications and that she would need to ask for them if she felt she needed them. Patient understands. We discussed possibly getting medicated prior to physical therapy and to have food on her stomach when she has her medications. No other complaints this morning. She is hoping to go home today. Physical Exam Physical Exam: Dressings are clean, dry, and intact. She continues to have some residual numbness down through the forearm into the thumb. She has slight amount of tingling left in her second through fifth digits. She has good range of motion of her digits at this time and good range of motion of her right wrist. Capillary refill is less than 2 seconds. [address]ling is in place. Results & Data ([facility]) Vital Signs (Past 12 Hours) Vital Signs Temp Pulse Resp BP Pulse Ox 12/22/21 07:04 36.9 C 56 L 16 129/54 L 92 Laboratory Results Laboratory Results WBC 11.41 K/ul (4.8-10.8) H 12/22/21 07:21 RBC 3.77 M/uL (3.93-5.22) L 12/22/21 07:21 Hgb 11.2 g/dl (12.0-16.0) L 12/22/21 07:21 Hct 34.8 % (34.1-44.9) 12/22/21 07:21 MCV 92.3 fL (80.0-100.0) 12/22/21 07:21 MCH 29.7 pg (25.0-34.0) 12/22/21 07:21 MCHC 32.2 g/dL (32.0-36.0) 12/22/21 07:21 RDW Std Deviation 49.3 fL (36.4-46.3) H 12/22/21 07:21 RDW Coeff of Dino 14.6 % (11.5-14.5) H 12/22/21 07:21 Plt Count 227 K/uL (130-400) 12/22/21 07:21 MPV 10.0 fL (9.4-12.3) 12/22/21 07:21 Immature Gran % (Auto) 0.4 % 12/22/21 07:21 Neut % (Auto) 81.7 % 12/22/21 07:21 Lymph % (Auto) 8.9 % 12/22/21 07:21 [place] % (Auto) 8.9 % 12/22/21 07:21 Eos % (Auto) 0.0 % 12/22/21 07:21 Baso % (Auto) 0.1 % 12/22/21 07:21 Neut # (Auto) 9.32 K/uL (1.4-6.5) H 12/22/21 07:21 Lymph # (Auto) 1.02 K/uL (1.2-3.4) L 12/22/21 07:21 [place] # (Auto) 1.01 K/uL (0.24-0.82) H 12/22/21 07:21 Eos # (Auto) 0.00 K/uL (0-0.50) 12/22/21 07:21 Baso # (Auto) 0.01 K/uL (0-0.2) 12/22/21 07:21 Immature Gran # (Auto) 0.05 K/uL (0.00-0.02) H 12/22/21 07:21 Sodium 140 mmol/L (136-145) 12/22/21 07:21 Potassium 4.1 mmol/L (3.5-5.1) 12/22/21 07:21 Chloride 105 mmol/L (98-107) 12/22/21 07:21 Carbon Dioxide 29 mmol/L (21-32) 12/22/21 07:21 Anion Gap 6 (3-11) 12/22/21 07:21 BUN 33 mg/dl (6-23) H 12/22/21 07:21 Creatinine 1.18 mg/dl (0.6-1.2) 12/22/21 07:21 Est Cr Clr Drug Dosing 39.9 ml/min 12/22/21 07:21 Est GFR ( Amer) 51.2 ml/min 12/22/21 07:21 Est GFR (Non-Af Amer) 44.1 ml/min 12/22/21 07:21 BUN/Creatinine Ratio 28.0 (10-20) H 12/22/21 07:21 Glucose 133 mg/dl (70-99(Fasting)) H 12/22/21 07:21 POC Glucose 129 mg/dl (70-99) H 12/22/21 08:06 Calcium 8.9 mg/dl (8.5-10.1) 12/22/21 07:21 SARS-CoV-2, RNA, NAAT NEGATIVE (NEGATIVE) 12/21/21 06:40 Impressions Shoulder X-Ray 12/21/21 11:30 XR shoulder LT min 2V routine HISTORY: 76 years-old Female Post shoulder surgery left shoulder arthroplasty COMPARISON: Chest radiograph 12/02/2021 TECHNIQUE: 2 views of the left shoulder FINDINGS: Left shoulder arthroplasty demonstrates satisfactory alignment. Overlying skin allie are noted with expected postoperative soft tissue swelling with deep tissue air. No acute fracture or unexpected opaque foreign body. Prior median sternotomy. Cardiomegaly with aortic endograft. Pulmonary vascular congestion with interstitial coarsening. IMPRESSION: Left shoulder arthroplasty with expected postoperative changes. ACT 112: Negative or not required by law. The above report was generated using voice recognition software. It may contain grammatical, syntax or spelling errors. Electronically signed by: Hayder Dhaliwal M.D. 12/21/2021 12:21 PM
--- NOTE | 2021-12-22 11:56 | Hospitalist Progress Note ---
Date of Service December 22, 2021 Assessment & Plan (1) Status post shoulder surgery: Plan: Post op day# 1 S/P Left Shoulder Resurfacing by Dr Aldo PANDEY#15ml -pain and wound management per ortho - Labs relatively stable. Minimal leucocytosis likely reactive. (2) Chronic diastolic heart failure: Plan: History Echo 12/06/2021: EF 55-59%, grade 1 diastolic dysfunction, s/p TAVR with prosthetic valve. No prosthesis stenosis or significant prosthesis regurgitation. Mild pulmonary hypertension. Mild MR -Appears euvolemic -Resume torsemide, spironolactone (3) CAD (coronary artery disease): Plan: History of [place] s/p angioplasty 2008 -Continue aspirin, metoprolol tartrate, atorvastatin (4) Aortic stenosis: Plan: Status post bioprosthetic valve 2008. Status post TAVR 2017 (5) CKD (chronic kidney disease), stage III: Plan: Cr: 1.5 on 12/14/21. Prior baseline 1.0-1.2. Torsemide was adjusted outpatient from 60 mg to 50 mg daily secondary to worsening renal functions - renal function stable and at baseline (6) HTN (hypertension): Plan: - Continue losartan, metoprolol tartrate (7) HLD (hyperlipidemia): Plan: - Continue atorvastatin (8) Diabetes mellitus, type II: Plan: A1c: 7.0 08/23/2021 - Resume glipizide at discharge. SSI in house. (9) Moderate obstructive sleep apnea: Plan: - CPAP at bedtime (10) Hypothyroidism: Plan: - Continue levothyroxine (11) GERD (gastroesophageal reflux disease): Plan: - Continue PPI (12) Asthma: Plan: - Continue home inhalers DVT Prophylaxis- per primary team Disposition per primary team. Stable for discharge from hospitalist perspective. Admission and Anticipated Discharge Date Admission Date: December 21, 2021 Subjective Pain is controlled. No other issues. Tolerating diet well. Ambulating independently. Voiding without issues. No fever, CP, SOB, N/V. Hoping to go home today. Physical Exam Physical Exam: General: Sitting comfortably in chair, not in distress, on room air HEENT: EOMI, SHANIA, MMM Chest: Shoulder incision site clean, covered with dressing. Clear breath sounds bilaterally, no wheezes or crackles CVS: Regular rate and rhythm, normal heart sounds, + murmur Abdomen: Soft, non tender, not distended, normal bowel sounds Neuro: Awake, alert, oriented, conversing well, non focal Extremities: LUE in sling. Mild chronic LE edema. Results & Data Results & Data ([facility]) Vital Signs (Past 12 Hours) Vital Signs Temp Pulse Resp BP Pulse Ox 12/22/21 07:04 36.9 C 56 L 16 129/54 L 92 Laboratory Results Short CBC 12/22/21 Range/Units 07:21 WBC 11.41 H (4.8-10.8) K/ul Hgb 11.2 L (12.0-16.0) g/dl Hct 34.8 (34.1-44.9) % Plt Count 227 (130-400) K/uL BMP 12/22/21 07:21 Sodium 140 Potassium 4.1 Chloride 105 Carbon Dioxide 29 BUN 33 H Creatinine 1.18 Glucose 133 H Calcium 8.9 Medications Administered Current Inpatient Medications Albuterol (Albut/Ipratrop 3mg/0.5mg Neb 3 Ml Vial) 3 ml INH QID PRN; Protocol PRN Reason: Shortness Of Breath Stop: 01/20/22 13:34 Ascorbic Acid (Ascorbic Acid 500 Mg Tab) 500 mg PO BID SHAHNAZ Stop: 01/20/22 20:59 Last Admin: 12/22/21 08:37 Dose: 500 mg Aspirin (Aspirin 81 Mg Ectab) 81 mg PO QAM SHAHNAZ Stop: 01/21/22 08:59 Last Admin: 12/22/21 08:37 Dose: 81 mg Atorvastatin Calcium (Atorvastatin 40 Mg Tab) 40 mg PO QPM SHAHNAZ Stop: 01/20/22 20:59 Last Admin: 12/21/21 20:38 Dose: 40 mg Bisacodyl (Bisacodyl 10 Mg Supp) 10 mg ID DAILY PRN PRN Reason: Constipation Stop: 01/20/22 13:34 Cyanocobalamin (Cyanocobalamin (B-12) 500 Mcg Tablet) 1,000 mcg PO QAM SHAHNAZ Stop: 01/21/22 08:59 Last Admin: 12/22/21 08:40 Dose: 1,000 mcg Dextrose (Dextrose 50% 50 Ml Syringe) 25 - 50 ml IV UD PRN; Protocol PRN Reason: Hypoglycemia Protocol Stop: 01/20/22 14:19 Docusate Sodium (Docusate Sodium 100 Mg Cap) 100 mg PO BID SHAHNAZ Stop: 01/20/22 20:59 Last Admin: 12/22/21 08:43 Dose: Not Given Duloxetine HCl (Duloxetine Hcl 20 Mg Cap) 20 mg PO BID SHAHNAZ Stop: 01/20/22 20:59 Last Admin: 12/22/21 08:38 Dose: 20 mg Ezetimibe (Ezetimibe 10 Mg Tablet) 10 mg PO QPM SHAHNAZ Stop: 01/20/22 20:59 Last Admin: 12/21/21 20:40 Dose: 10 mg Fluticasone Propionate (Fluticasone Propionate Na Spr 16 Gm Btl) 2 sprays NA HS SHAHNAZ Stop: 01/20/22 20:59 Last Admin: 12/21/21 20:39 Dose: 2 sprays Fluticasone/Vilanterol (Fluticasone/Vilanterol 100/25mcg 14 Puffs/Inhaler) 1 puffs INH HS SHAHNAZ Stop: 01/20/22 20:59 Last Admin: 12/21/21 20:39 Dose: 1 puffs Glucagon (Glucagon For Inj 1 Mg Vial) 1 mg SQ UD PRN; Protocol PRN Reason: Hypoglycemia Protocol Stop: 01/20/22 14:19 Glucose (Glucose 40% Gel 15 Gm Tube) 15 - 30 gm PO UD PRN; Protocol PRN Reason: Hypoglycemia Protocol Stop: 01/20/22 14:19 Glucose (Glucose 10 Tab/Tube) 4 - 8 tab PO UD PRN; Protocol PRN Reason: Hypoglycemia Treatment Stop: 01/20/22 14:19 Hydromorphone HCl (Hydromorphone Inj 0.5 Mg/0.5 Ml Syr) 0.25 mg IV Q4H PRN PRN Reason: Pain or Pre PT Stop: 01/04/22 13:34 Insulin Aspart (Insulin Aspart Per Unit) 0 units SC ACHS [facility] Stop: 01/20/22 16:29 Last Admin: 12/22/21 09:29 Dose: 2 units Levothyroxine Sodium (Levothyroxine Sodium 75 Mcg Tablet) 75 mcg PO DAILYBB SHAHNAZ Stop: 01/21/22 06:29 Last Admin: 12/22/21 06:25 Dose: 75 mcg Loratadine (Loratadine 10 Mg Tab) 10 mg PO DAILY SHAHNAZ Stop: 01/21/22 08:59 Last Admin: 12/22/21 08:38 Dose: 10 mg Losartan Potassium (Losartan Potassium 50 Mg Tab) 100 mg PO QAM [facility] Stop: 01/21/22 08:59 Last Admin: 12/22/21 08:39 Dose: 100 mg Magnesium Hydroxide (Magnesium Hydroxide Susp 30 Ml Udc) 30 ml PO Q6H PRN PRN Reason: Constipation Stop: 01/20/22 13:34 Magnesium Oxide (Magnesium Oxide 400 Mg Tab) 400 mg PO QPM SHAHNAZ Stop: 01/20/22 20:59 Last Admin: 12/21/21 20:38 Dose: 400 mg Metoprolol Tartrate (Metoprolol Tartrate 50 Mg Tab) 75 mg PO QAM [facility] Stop: 01/21/22 08:59 Last Admin: 12/22/21 08:40 Dose: 75 mg Metoprolol Tartrate (Metoprolol Tartrate 50 Mg Tab) 50 mg PO HS [facility] Stop: 01/20/22 20:59 Last Admin: 12/21/21 20:37 Dose: 50 mg Miscellaneous (Carbohydrates For Hypoglycemia ) 15 - 30 gm PO UD PRN PRN Reason: Hypoglycemia Protocol Stop: 01/20/22 14:19 Multivitamins/Minerals (Cerovite Adv Formula Tab) 1 tab PO QAM [facility] Stop: 01/21/22 08:59 Last Admin: 12/22/21 08:39 Dose: 1 tab Naloxone HCl (Naloxone Hcl 0.4 Mg/1 Ml Vial/Carp) 0.1 mg IV Q5M PRN PRN Reason: Oversedation/Resp Depression Stop: 01/20/22 13:34 Nitroglycerin (Nitroglycerin Sl 0.4 Mg/Tab Tab) 0.4 mg SL Q5M PRN PRN Reason: Chest Pain Stop: 01/20/22 13:34 Ondansetron HCl (Ondansetron Inj 2 Mg/Ml 2 Ml Vial) 4 mg IV Q6H PRN PRN Reason: Nausea And Vomiting Stop: 01/20/22 13:34 Oxycodone HCl (Oxycodone Hcl Ir 5 Mg Tab (Immediate Release)) 5 - 10 mg PO Q4H PRN PRN Reason: Pain or Pre PT Stop: 01/04/22 13:34 Last Admin: 12/22/21 08:45 Dose: 5 mg Pantoprazole Sodium (Pantoprazole 40 Mg Tab) 40 mg PO QAM [facility] Stop: 01/21/22 08:59 Last Admin: 12/22/21 08:38 Dose: 40 mg Sennosides (Senna 8.6 Mg Tab) 17.2 mg PO HS [facility] Stop: 01/20/22 20:59 Last Admin: 12/21/21 20:36 Dose: Not Given Spironolactone (Spiron[facility]actone 25 Mg Tab) [facility] Stop: 01/21/22 08:59 Last Admin: 12/22/21 08:40 Dose: 25 mg Torsemide (Torsemide 10 Mg Tab) [facility] Stop: 01/21/22 08:59 Last Admin: 12/22/21 08:39 Dose: 50 mg (1) HTN (hypertension) Hypertension type: unspecified Qualified Code(s): I10 - Essential (primary) hypertension
[2021-12-22 12:31] VITALS: PULSE 67
--- NOTE | 2021-12-24 11:39 | Discharge Summary ---
Date of Service December 24, 2021 Admission HPI Per Admitting Provider Mrs Carpio is a 76-year-old female who presents for preop evaluation prior to left shoulder resurfacing versus total shoulder replacement. She states she has been having pain in that shoulder for many years now which gradually worsened. She had a recent cortisone injection which did not provide any relief. Pain is not affecting her daily activities, she has weakness and pain with activities, pain is waking her at night. She is tried oral anti-inflammatory as well as Tylenol. I discussing risk and benefits of procedure, she would like to proceed with surgical intervention Admission Exam Per Admitting Provider Physical Exam: HT: 5ft 1in WT: 86.8kg Constitutional: WD/WN, vitals as above no acute distress Respiratory: normal respiratory effort, lungs clear to auscultation no respiratory distress, no labored breathing and does not use accessory muscles Cardiovascular: RRR, no murmur, no edema Gastrointestinal (Abdomen): normal bowel sounds, soft, nontender, no hepatosplenomegaly Musculoskeletal: Left Shoulder Physical Exam there is no ecchymosis or erythema noted, positive crepitation with active motion, Tenderness anterior aspect shoulder, subacromial space and the AC joint. Belly press - Positive. [place] Positive. Cross Body Positive. Neer's - positive. Strength tests - External rotation 4/5, Supraspinatus 4/5 no atrophy Left shoulder ROM Active ROM - Flexion: 120 degrees, Ext Rot 90 Flex: 30 degrees, Abduction: 45 degrees, Factors: pain, Description: Pain with ROM. Passive ROM - Flexion 170 degrees, ER at 90 de degrees, pain with end range passive ROM. Neurovascular- Radial pulse palpable, radial/median/ulnar nerves intact. Elbow- full painless range of motion, no tenderness. Principal Diagnosis Left Shoulder Osteoarthritis Discharge Data Allergies Allergy/AdvReac Type Severity Reaction Status Date / Time erythromycin base AdvReac Intermediate GI UPSET Verified 12/21/21 07:01 AND CRAMPING tetracycline AdvReac Intermediate GI UPSET Verified 12/21/21 07:01 Consultations 12/21/21 13:35 Consult Hospitalist Routine Procedures Performed Operation Date: 12/21/21 09:05 Actual Procedures p Left Shoulder Resurfacing(Left) - Segun Carlson DO Ordered Studies 12/21/21 05:00 US - OR guided needle placemen Routine Hospital Course (1) Arthritis of left shoulder region: Patient:KEVIN CARPIO Admit Date:12/21/21 MR#:[id number] Att Phy:Segun Carlson D.O. Acct ID:[id number] Rosie Phy:Peggy Reyes MD Date:1945 Fam Phy: Age:76 Location:3N Sex:F Room/Bed:[facility] cc: ~ *NOTICE TO RECEIVING CONSTITUTION PARTY/AGENCY This information is strictly Confidential and protected under [place] law. [place] law prohibits you from making any further disclosure of this information unless further disclosure is expressly permitted by the written consent of the person to whom it pertains or is authorized by law. A general authorization for the release of medical or oth er information is not sufficient for this purpose. Hospital accepts no responsibility if the information is made available to any other person, INCLUDING THE PATIENT. Date of Service December 22, 2021 Assessment & Plan (1) Arthritis of left shoulder region: Plan: Postop day 1 status post left shoulder resurfacing PT/OT protocols. Nonweightbearing on the left upper extremity. DVT prophylaxis-SCDs, aspirin p.o. daily Pain management as written. DC planning-patient is planning on discharge to home with outpatient PT. Admission and Anticipated Discharge Date Admission Date: December 21, 2021 Subjective POD 1 Pt sitting up in bed awake and alert. States she is starting to have more pain in the shoulder this AM. We discussed use of oral pain medications and that she would need to ask for them if she felt she needed them. Patient understands. We discussed possibly getting medicated prior to physical therapy and to have food on her stomach when she has her medications. No other complaints this morning. She is hoping to go home today. Physical Exam Physical Exam: Dressings are clean, dry, and intact. She continues to have some residual numbness down through the forearm into the thumb. She has slight amount of tingling left in her second through fifth digits. She has good range of motion of her digits at this time and good range of motion of her right wrist. Capillary refill is less than 2 seconds. [address]ling is in place. Results & Data ([facility]) Vital Signs (Past 12 Hours) Vital Signs Temp Pulse Resp BP Pulse Ox C 12/22/21 07:04 36.9 C 56 L 16 129/54 L 92 Laboratory Results Laboratory Results WBC 11.41 K/ul (4.8-10.8) H 12/22/21 07:21 RBC 3.77 M/uL (3.93-5.22) L 12/22/21 07:21 Hgb 11.2 g/dl (12.0-16.0) L 12/22/21 07:21 Hct 34.8 % (34.1-44.9) 12/22/21 07:21 MCV 92.3 fL (80.0-100.0) 12/22/21 07:21 MCH 29.7 pg (25.0-34.0) 12/22/21 07:21 MCHC 32.2 g/dL (32.0-36.0) 12/22/21 07:21 RDW Std Deviation 49.3 fL (36.4-46.3) H 12/22/21 07:21 RDW Coeff of Dino 14.6 % (11.5-14.5) H 12/22/21 07:21 Plt Count 227 K/uL (130-400) 12/22/21 07:21 MPV 10.0 fL (9.4-12.3) 12/22/21 07:21 Immature Gran % (Auto) 0.4 % 12/22/21 07:21 Neut % (Auto) 81.7 % 12/22/21 07:21 Lymph % (Auto) 8.9 % 12/22/21 07:21 [place] % (Auto) 8.9 % 12/22/21 07:21 Eos % (Auto) 0.0 % 12/22/21 07:21 Baso % (Auto) 0.1 % 12/22/21 07:21 Neut # (Auto) 9.32 K/uL (1.4-6.5) H 12/22/21 07:21 Lymph # (Auto) 1.02 K/uL (1.2-3.4) L 12/22/21 07:21 [place] # (Auto) 1.01 K/uL (0.24-0.82) H 12/22/21 07:21 Eos # (Auto) 0.00 K/uL (0-0.50) 12/22/21 07:21 Baso # (Auto) 0.01 K/uL (0-0.2) 12/22/21 07:21 Immature Gran # (Auto) 0.05 K/uL (0.00-0.02) H 12/22/21 07:21 Sodium 140 mmol/L (136-145) 12/22/21 07:21 Potassium 4.1 mmol/L (3.5-5.1) 12/22/21 07:21 Chloride 105 mmol/L (98-107) 12/22/21 07:21 Carbon Dioxide 29 mmol/L (21-32) 12/22/21 07:21 Anion Gap 6 (3-11) 12/22/21 07:21 BUN 33 mg/dl (6-23) H 12/22/21 07:21 Creatinine 1.18 mg/dl (0.6-1.2) 12/22/21 07:21 Est Cr Clr Drug Dosing 39.9 ml/min 12/22/21 07:21 Est GFR ( Amer) 51.2 ml/min 12/22/21 07:21 Est GFR (Non-Af Amer) 44.1 ml/min 12/22/21 07:21 BUN/Creatinine Ratio 28.0 (10-20) H 12/22/21 07:21 Glucose 133 mg/dl (70-99(Fasting)) H 12/22/21 07:21 POC Glucose 129 mg/dl (70-99) H 12/22/21 08:06 Calcium 8.9 mg/dl (8.5-10.1) 12/22/21 07:21 SARS-CoV-2, RNA, NAAT NEGATIVE (NEGATIVE) 12/21/21 06:40 Impressions Shoulder X-Ray 12/21/21 11:30 XR shoulder LT min 2V routine HISTORY: 76 years-old Female Post shoulder surgery left shoulder arthroplasty COMPARISON: Chest radiograph 12/02/2021 TECHNIQUE: 2 views of the left shoulder FINDINGS: Left shoulder arthroplasty demonstrates satisfactory alignment. Overlying skin allie are noted with expected postoperative soft tissue swelling with deep tissue air. No acute fracture or unexpected opaque foreign body. Prior median sternotomy. Cardiomegaly with aortic endograft. Pulmonary vascular congestion with interstitial coarsening. IMPRESSION: Left shoulder arthroplasty with expected postoperative changes. ACT 112: Negative or not required by law. The above report was generated using voice recognition software. It may contain grammatical, syntax or spelling errors. Electronically signed by: Hayder Dhaliwal M.D. 12/21/2021 12:21 PM Signed By: <Electronically signed by Buddy Johnston PA-C> 12/22/21 1009 <Electronically signed by Jeffrey Rodríguez M.D.> 12/22/21 1645 Total Time Total Time Spent Total Time Spent (In Minutes): 5 Discharge Plan Discharge Items Patient Disposition: Home - Self-Care Reason For Visit: Primary Osteoarthritis of Left Shoulder Discharge Diagnosis: Left Shoulder Osteoarthritis Activity: Per Instructions section Weightbearing: Left non-weightbearing Non-emergency contact: Surgeon Call non-emergency contact if: you have any medication questions, your pain is not controlled, your temperature is above 101.5, your wound has increased redness and your wound has increased drainage Follow-up/Referrals: Segun Carlson DO [Surgeon] - (Follow up with Dr. Carlson in 2 weeks from the day of your surgery for your first post operative visit.) Peggy Reyes MD [Primary Care Provider] - Diet: Carb Consistent or DM2 Addtl Attending Provider Instructions: ACTIVITY RECOMMENDATIONS: SELF CARE INSTRUCTIONS AFTER TOTAL SHOULDER ARTHROPLASTY A. You may do daily exercises as taught in physical therapy while in hospital. No lifting with the operative arm. Please schedule your outpatient physical therapy appointment to begin within 2-3 days after leaving the hospital. Specific restrictions will be written on your physical therapy prescription that is provided to you. B. You are to wear your sling/immobilizer at all times EXCEPT when performing your daily exercises, participating in physical therapy and for hygiene purposes. C. You may perform dry, daily dressing changes. Please keep your incision covered. You may shower 48 hours after surgery. Do not apply soap or any ointment/lotions directly over incision. Do not soak incision in bath tub/swimming pool. D. You may use ice as needed to operative shoulder. SPECIAL CARE INSTRUCTIONS: MEDICATION INSTRUCTIONS: *It is recommended you take Aspirin 325mg daily for four weeks post-op. VERY IMPORTANT TO READ AND REVIEW A. There are a few signs you need to watch for after you are home. Call [facility] at [phone] if you experience any of the followin. Increased severe shoulder pain. Some pain is expected especially when you exercise. 2. Increased swelling in you shoulder or arm; pain or swelling in either upper extremity. 3. Any fluid drainage from the incision. 4. Shortness of breath or chest pain. B. Please call [facility] at [phone] if you have any questions or concerns about your operation or recovery. C. Call your physician if: 1. Temperature is greater than 101 degrees (F). 2. Pain is not relieved by prescribed pain medications. 3. Increase drainage or redness from incision. 4. Unanswered questions or concerns. FOLLOW UP VISIT: Please call [facility] at [phone] to schedule a follow up appointment with Dr. Carlson or his PA in 12-14 days from your surgery date. Stand-Alone Forms: My Interventional Imaging, Smoking Cessation Medications and DC Order Prescriptions: New oxycodone 5 mg tablet 5 mg PO Q4H MDD 6 PRN (Reason: pain) Qty: 30 0RF acetaminophen 500 mg capsule 1,000 mg PO Q8H 14 Days Qty: 84 0RF Continued ezetimibe 10 mg tablet 10 mg PO QPM (DME) CPAP Machine Misc See Dose Instructions .ROUTE .MEDSUPPLY Qty: 1 0RF Dose Instruction: As directed Rx Instructions: CPAP 13 cm water pressure C flex #1 with a small ResMed Airfit mask, heated humidification, tubing, and supplies. GINGER: 99+ years. ascorbate calcium (vitamin C) 500 mg tablet 500 mg PO BID aspirin [Adult Low Dose Aspirin] 81 mg tablet,delayed release (DR/EC) 81 mg PO QAM cyanocobalamin (vitamin B-12) 1,000 mcg capsule 1,000 mcg PO QAM ipratropium-albuterol 0.5 mg-3 mg(2.5 mg base)/3 mL solution for nebulization 3 ml INH QID PRN (Reason: Shortness Of Breath) levothyroxine 75 mcg capsule 75 mcg PO DAILYBB loratadine 10 mg tablet 10 mg PO DAILY magnesium oxide 400 mg magnesium tablet 400 mg PO QPM metoprolol tartrate 50 mg tablet 50 mg PO .COMPLEX Label Comments: 50 mg PO 1.5 TABLETS IN AM 1 TABLET IN PM; Rx Instructions: TAKES 75 MG QAM, THEN 50 MG QPM. nitroglycerin 0.4 mg tablet, sublingual 0.4 mg SL Q5M PRN (Reason: Chest Pain) torsemide 100 mg tablet 50 mg PO QAM fluticasone propionate 50 mcg/actuation spray,suspension 2 spray intranasal HS omeprazole magnesium 20 mg Tablet,Delayed Release (Dr/Ec) 20 mg PO QAM amoxicillin 500 mg capsule 2,000 mg PO DIRECTED PRN (Reason: 1 hr prior to dental appt) atorvastatin 40 mg tablet 40 mg PO QPM fluticasone propion-salmeterol 250-50 mcg/dose blister with device 1 ea INHALATION BID Ocuvite Adult 50 Plus 250-5-1 mg Capsule 1 cap PO QAM glipizide 2.5 mg tablet extended release 24 hr 2.5 mg PO DAILYBB duloxetine 20 mg capsule,delayed release(DR/EC) 20 mg PO BID spironolactone 25 mg Tablet 25 mg PO QAM losartan 50 mg tablet 100 mg PO QAM Discharge Orders: Discharge Order (Routine); Ordered 12/22/21 Ordered By: Buddy Johnston Admission Data Admit Date/Time: 12/21/21 11:30 Attending Provider: Segun Carlson Admit Provider: Segun Carlson Primary Care Provider: Peggy Reyes Other Providers: Godwin Shepherd ; [place] Mayorga Other Interventions: Discharge Summary Assessment (RN) Last Done: 12/22/21 12:28
== END 2021-12-22 13:58 | disposition home or self-care (01) | DRG 483 ==
LOC: ASU 06:22 → 3N 11:30